=== PATIENT | female | born 1955 | race Caucasian/White ===

== ENCOUNTER → 2016-05-06 | Outpatient (CLI) | payer BC, OTHER ==
[~2016-05-06] MED LIST: ASCA500 PO; ASCO500T16 PO; CHOL400C6 PO; CHOLTAB3 PO; CLON0.1T12 PO; CLON0.3T PO; CLON1TAB PO; CLON1TAB3 PO; CYCL10TA6 PO; ERGO1TAB10; IBUP-1428 PO; KLN1 PO; LAMO150T32 PO; LAMO200T38 PO; LAMO25TA PO; LMC25 PO; MULT-506 PO; OMEG10007 PO; RMR15 PO
[2016-05-06 12:03] LABS: PROGESTERONE < 0.21 ng/mL
== END | disposition home or self-care (01) ==
LOC: C.LAB1850 10:03
DX: N95.1 Menopausal and female climacteric states (principal)

== ENCOUNTER → 2016-05-06 | Outpatient (CLI) | payer BC | END | disposition home or self-care (01) | LOC: C.PAPS 12:35 | PROVIDERS: ATTEND Obstetrics & Gynecology | DX: Z01.419 Encounter for gynecological examination (general) (routine) without abnormal findings (principal) ==

== ENCOUNTER 2016-06-12 20:05 | Emergency (ER) | payer BC ==
[~2016-06-12] VITALS: Ht 165.1 cm; Wt 65.9 kg
[~2016-06-12 20:05] MED LIST changes: -ASCO500T16 PO; -CHOL400C6 PO; -CLON0.1T12 PO; -CLON0.3T PO; -CLON1TAB PO; -CYCL10TA6 PO; -ERGO1TAB10; -KLN1 PO; -LAMO200T38 PO; -LMC25 PO; -RMR15 PO
[2016-06-12 20:19] VITALS: Ht 165.1 cm; Wt 65.9 kg
[2016-06-12] MEDS ORDERED: CYCLOBENZAPRINE HCL 10 MG TAB PO STA (21:45)
[2016-06-12] MEDS ORDERED: FLEXERIL HOME PACK 10 MG VIAL PO ONE (21:45)
[2016-06-12] MEDS ORDERED: CYCL10TA6 PO (22:50)
--- NOTE | 2016-06-12 22:50 | EMERGENCY ROOM VISIT NOTE ---
ED Visit Note First contact with patient: 21:35 Chief Complaint: Bad Muscle Spasms History of Present Illness: Patient is a 60-year-old female who presents to the emergency Department this evening for evaluation of her thoracic spine spasm. The patient reports that she started with symptoms afternoon. She has been seen in this facility for ongoing symptoms which appear to wax and wane in nature. She denies any falls or recent trauma to the spine. She has been placed on Flexeril previously with moderate relief of symptoms. She has not followed with her primary care provider for this to this point. The patient denies any numbness or tingling into the distal tremor is. She denies any loss of control bowel/bladder saddle anesthesia. She denies a chest pain, palpations , short of breath, nausea, vomiting, hematochezia, melena, hematuria, or dysuria. She rates her current discomfort as an 8/10. She reports the pain is worse with movement. Medications: Reviewed and discussed with the patient. Allergies: Multiple allergies listed above. PMH: As above. SHx: Patient is a 60-year-old female who lives locally. ROS: All pertinent positive and negative review of systems are appropriately documented in the History of Present Illness. Physical Exam: VITAL SIGNS - Vital signs and nursing notes were reviewed. GENERAL - 60-year-old female appearing her stated age and in noticeable discomfort throughout the exam. NECK - FROM of the cervical spine. ABDOMEN - Abdominal contour flat without pulsations or visible masses. BS normoactive all four quadrants. No tenderness, palpable masses, hepatosplenomegaly, or ascites noted. MUSCULOSKELETAL - ROM of the thoracolumbar spine region was assessed as full. Pt was seated on the exam table. Pt made semi-guarded movements when asked to change position. No step-off deformities were palpated down the thoracolumbar spines. Moderate Tenderness to Palpation experienced at the level of the bilateral lower thoracic paraspinal muscle distribution. No reproducible tenderness to palpation across the iliac spine. NEUROLOGIC - REFLEXES: +3/4 patellar reflexes B/L. SENSORY: Spinothalamic tract was found to be intact with ability to discriminate sharp versus dull sensation at the level of hip joint down do the great toe. No sensory defects of the dorsal column were appreciated utilizing light touch for evaluation. CEREBELLAR: Pt able to perform rapid alternating movements of the feet. EXTREMITIES - Range of Motion - No tremors, ticks, or fasciculations of the lower extremities noticed during inspection. FROM of the lower extremities. No clonus noted with PROM of the lower extremities bilaterally. Pt had +5/5 strength appreciated bilaterally in the lower extremities against examiner's resistance. VASCULAR - Capillary refill of the great toe was brisk. No mottling or blanching of the extremities present. +3/5 dorsalis pedis pulses palpated bilaterally. ED Course: Patient was seen and evaluated by myself. Previous emergency department visit notes were reviewed. I had a lengthy conversation with the patient regarding her ongoing symptoms. She was provided initial dose of Flexeril in the emergency department. She was encouraged to follow up with her primary care provider for ongoing management. She was educated on worrisome symptoms for return visit to the emergency department. Patient discharged home in good condition with a friend driving. In the evaluation and treatment of this patient the following differential diagnoses were considered: Cauda equina syndrome, discitis, HNP, sciatica, epidural abscess, psoas abscess, musculoskeletal strain, lumbar fracture, lumbar dislocation, lumbar subluxation, spondylolisthesis, spondylosis, or compression fracture. Given the patient's presentation and stated complaint, I did elect perform the above-mentioned workup. The patient presents today with active muscle spasm to the thoracic spinal muscle distribution. Vital signs are otherwise unremarkable. She has no significant findings concerning for compressive etiology at this point. She has responded well to Flexeril in the past. She was provided a short prescription for Flexeril. She'll follow-up with her primary care provider from today's visit. She will return for any changing or worsening symptoms. Patient discharged home in good condition. Impression: Thoracic Muscle Spasm Discharge Instructions: You have been treated in the Emergency Department for Back Pain. You have received pain medicine in the emergency department which impairs your ability to operate a vehicle. It is illegal for you to drive after receiving these medicines. You have been prescribed Flexeril (cyclobenzaprine) 1-2 tabs orally, three times per day. Do NOT exceed 30 mg (6 tabs) per day. Take your first dose at bedtime as it can make you drowsy. Always take all medications as prescribed. For pain control, you can use the following yqah-rog-yijjyqn medicines (if >12 yo): - Regular strength (325mg/tab) Tylenol (acetaminophen) 2 tabs every 4-6 hours as needed. Do not exceed 12 tablets in a 24 hour period. Avoid taking more than 4 grams (4000 mg) of Tylenol per day. This includes any other sources of acetaminophen you may take on a regular basis. - Regular strength (200 mg/tab) Advil (ibuprofen) 1-2 tabs every 4-6 hours as needed. Do not exceed a dose of 3200 mg per day. If this is an acute injury, ice can be applied to the area of pain for the first 3 days to help decrease pain and inflammation. After the first 3 days, a heating pad can be used over the area for continued soothing relief. You should schedule a follow-up appointment in 2-3 days with your Primary Care Provider for further evaluation and treatment of your back pain. Return to the Emergency Department if your current symptoms worsen despite treatment course outlined above, or if you develop any of the following symptoms : intractable pain despite aforementioned treatment course, loss of control of your bowel or bladder, numbness or tingling in your groin, or development of a fever. Problem List Medical Problems: (1) Anemia Nos Status: Chronic (2) Lipoma Nos Status: Resolved (3) Malig Nicholas Corpus Uteri Status: Resolved (4) Recurr Depr Disord-Unsp Status: Chronic (5) Solitary Cyst Of Breast Status: Resolved Current/Historical Medications Scheduled Ascorbic Acid (Vitamin C *), 500 MG PO DAILY Clonazepam (Klonopin), 1 MG PO 5XD Cyclobenzaprine Hcl (Flexeril), 10 MG PO TID Ergocalciferol (Vitamin D), 400 INTER.UNIT PO DAILY Fish Oil ([place]-3), 1 CAP PO BID Ibuprofen (Motrin), 800 MG PO Q8H Lamotrigine (Lamictal), 150 MG PO QAM Lamotrigine (Lamictal), 125 MG PO QPM Multivitamin (Multivitamin), 1 TAB PO DAILY Allergies Coded Allergies: Lanolin (Verified Allergy, Unknown, 06/12/16) Latex1 -Allergic Contact Dermititis (Unverified Allergy, Unknown, dry cracked skin, 06/12/16) Molds and Smuts (Unverified Allergy, Unknown, RASH, 06/12/16) Sulfa Drugs (Unverified Allergy, Unknown, swollen lips and tongue, 06/12/16 ) Sulfamethoxazole w/Trimethoprim (Verified Allergy, Unknown, ., 06/12/16) Amoxicillin (Unverified Adverse Reaction, Unknown, stomach can't tolerate , 06/12/16) Vital Signs Date Time Temp Pulse Resp B/P Pulse Ox O2 Delivery O2 Flow Rate FiO2 06/12/16 22:57 36.3 67 18 132/101 95 06/12/16 20:19 36.3 63 18 117/82 96 Room Air Medications Administered Medications (Trade) Dose Ordered Sig/Mary Route Start Time Stop Time Status Last Admin Dose Admin Cyclobenzaprine HCl (Flexeril Tab) 10 mg NOW STAT PO 06/12/16 21:45 06/12/16 21:46 DC 06/12/16 22:12 10 MG Departure Information Impression Primary Impression: Thoracic spine pain Additional Impression: Spasm of thoracolumbar muscle Dispostion Home / Self-Care Condition GOOD Prescriptions Cyclobenzaprine Hcl (FLEXERIL) 10 Mg Tab 10 MG PO TID for 7 Days, #21 TAB Prov: Chang Alvarez, TWIN 06/12/16 Referrals Grabiel Hennessy Jr,D.O. (PCP) Patient Instructions My [facility] Additional Instructions You have been treated in the Emergency Department for Back Pain. You have received pain medicine in the emergency department which impairs your ability to operate a vehicle. It is illegal for you to drive after receiving these medicines. You have been prescribed Flexeril (cyclobenzaprine) 1-2 tabs orally, three times per day. Do NOT exceed 30 mg (6 tabs) per day. Take your first dose at bedtime as it can make you drowsy. Always take all medications as prescribed. For pain control, you can use the following cjgw-ikg-mccycys medicines (if >12 yo): - Regular strength (325mg/tab) Tylenol (acetaminophen) 2 tabs every 4-6 hours as needed. Do not exceed 12 tablets in a 24 hour period. Avoid taking more than 4 grams (4000 mg) of Tylenol per day. This includes any other sources of acetaminophen you may take on a regular basis. - Regular strength (200 mg/tab) Advil (ibuprofen) 1-2 tabs every 4-6 hours as needed. Do not exceed a dose of 3200 mg per day. If this is an acute injury, ice can be applied to the area of pain for the first 3 days to help decrease pain and inflammation. After the first 3 days, a heating pad can be used over the area for continued soothing relief. You should schedule a follow-up appointment in 2-3 days with your Primary Care Provider for further evaluation and treatment of your back pain. Return to the Emergency Department if your current symptoms worsen despite treatment course outlined above, or if you develop any of the following symptoms : intractable pain despite aforementioned treatment course, loss of control of your bowel or bladder, numbness or tingling in your groin, or development of a fever. Problem Qualifiers
[2016-06-12 22:57] VITALS: BP 132/101; PULSE 67; TEMP 36.3; O2SAT 95
== END 2016-06-12 22:58 | disposition home or self-care (01) ==
LOC: C.EDB 20:06 → C.EDD 22:58
DX: M62.830 Muscle spasm of back (principal); F33.9 Major depressive disorder, recurrent, unspecified

== ENCOUNTER 2016-07-10 15:35 | Emergency (ER) | payer BC ==
[~2016-07-10] VITALS: Ht 165.1 cm; Wt 64.1 kg
[2016-07-10 15:38] VITALS: TEMP 36.3; Ht 165.1 cm; Wt 64.1 kg
[2016-07-10] MEDS ORDERED: CYCL10TA6 PO (16:24)
[2016-07-10] MEDS ORDERED: ASCO500T16 PO (16:28)
[2016-07-10] MEDS ORDERED: CHOL400C6 PO (16:31)
[2016-07-10] MEDS ORDERED: ERGO1TAB10 (16:31)
[2016-07-10 16:43] VITALS: BP 124/88; PULSE 63; O2SAT 97
--- NOTE | 2016-07-10 18:06 | EMERGENCY ROOM VISIT NOTE ---
ED Visit Note First contact with patient: 15:52 Chief Complaint: Back muscle spasms. History of Present Illness: Ms. Mota is a 60-year-old white female who ambulates into the ED complaining of left-sided thoracic back pain and muscle spasm. Historically patient reports she said multiple episodes of left-sided thoracic muscle spasms over the last few years. Currently she reports her pain is similar today and is slightly worse than normal but not the worst pain she's ever had. Currently she is complaining of cramping like pain over the medial border of the left scapula in the rhomboid and trapezius muscle. She rates her discomfort 9/10. The pain is nonradiating. Pain worsens with most movements of the shoulder and palpation. She has not identified any alleviating factors related to the pain. She reports she has been using ibuprofen with minimal relief of her discomfort. She denies any associated symptoms. Historically she does report she fell approximately 2 weeks ago while skiing and she feels this could be an aggravating factor. She denies fevers, chills, sweats, skin eruptions, skin color changes, upper respiratory tract symptoms, shortness of breath, chest pain, neck pain, lumbar back pain, abdominal pain, upper extremity weakness/numbness/tingling. Review of Systems: As noted above in history of present illness. 8 body systems were reviewed and found to be negative as noted above. Past Medical History: Status post hysterectomy, bicipital tendon repair. Current Medications: Motrin rectal, vitamins, Klonopin, Motrin. Allergies to Medications: Amoxicillin, lanolin, latex, Bactrim. Social History: Patient is currently employed; she feels safe in her home environment; she denies tobacco use and admits to social alcohol use. Physical Examination: Vital Signs: Date Time Temp Pulse Resp B/P Pulse Ox O2 Delivery O2 Flow Rate FiO2 07/10/16 15:38 36.3 76 22 134/86 96 Room Air GENERAL: 60-year-old female in mild distress due to pain, nontoxic-appearing, afebrile and hemodynamically stable. NEUROLOGICAL: Awake, alert and oriented to person, place and time. Answering questions appropriately and following commands. Normal gait. Good hand eye coordination. No focal motor sensory deficits. SKIN: Warm, dry and pink. No soft tissue eruptions or trauma noted. HEENT: Atraumatic and normocephalic. BACK: No tenderness over the bony cervical spine. Full range of motion of the cervical spine. No tenderness over the thoracic spine. Moderate tenderness and spasm of the trapezius and rhomboid group on the left side. No CVA tenderness. THORAX: Lungs sounds are clear to auscultation and equal bilaterally with symmetrical chest wall. UPPER EXTREMITIES: Moves all extremities well on command and with purpose. All distal neurovascular statuses are intact and equal bilaterally. 5/5 muscle strength in flexion, extension, abduction and abduction of the shoulders, flexion and extension of the elbows, flexion, extension and radial and ulnar deviation of the wrist, and finger opposition. Throughout the hand the skin was warm and pink and capillary refill was brisk. She is able to distinguish light sensations through all dermatomes except were the middle finger on the left handed previous surgery. 2+ bicipital, tricipital and brachial radialis deep tendon reflexes intact and equal bilaterally. Throughout the hand the skin was warm and pink and capillary refill is brisk. ED Course: Patient is assessed as noted above. Patient is educated about tonight's findings and instructed on her treatment plan; she verbalizes understanding and agreement with this plan. Clinical Impression: Thoracic muscle spasm and pain. Disposition: Patient discharged home in stable condition; prior to departure she was reassessed and subjectively reported she was feeling slightly better and rated her discomfort 7/10. Plan: Patient was encouraged to continue her current medications as prescribed. Patient was prescribed Flexeril 10 mg every 8 hours as needed for muscle spasm. A lengthy conversation on high: Therapies and patient was encouraged to follow that plan. Patient was encouraged to follow-up with her PCP and/or chiropractor for recheck and possible referral to back specialist. Patient was encouraged return ED for worsening/uncontrolled pain/spasm, upper extremity weakness/numbness/tingling or any new/concerning symptoms.
== END 2016-07-10 16:44 | disposition home or self-care (01) ==
LOC: C.EDB 15:37 → C.EDD 16:44
DX: M62.830 Muscle spasm of back (principal); Z90.710 Acquired absence of both cervix and uterus

== ENCOUNTER 2016-08-01 13:07 | Emergency (ER) | payer BC ==
[~2016-08-01] VITALS: Ht 165.1 cm; Wt 63.0 kg
[~2016-08-01 13:07] MED LIST changes: -ASCA500 PO; +ASCO500T16 PO; +CHOL400C6 PO; -CHOLTAB3 PO
[2016-08-01 13:25] VITALS: TEMP 36.6; Ht 165.1 cm; Wt 63.0 kg
[2016-08-01] MEDS ORDERED: KETOROLAC TROMETHAMINE 60 MG/2 ML VIAL IM STA (14:13)
[2016-08-01] MEDS ORDERED: CYCL10TA6 PO (14:17)
[2016-08-01 14:36] VITALS: BP 143/95; PULSE 63; O2SAT 97
--- NOTE | 2016-08-01 17:03 | EMERGENCY ROOM VISIT NOTE ---
History First contact with patient: 13:55 Chief Complaint: BACK PAIN Stated Complaint: MUSCLE SPASMS History of Present Illness The patient is a 60 year old female who presents to the Emergency Room with complaints of sided middle back pain radiating up underneath the left scapula. The patient reports that she has had intermittent back spasms for the past 6 months. Around [place] time, the patient reports that she did have 2 physical therapy sessions minimally helped. The patient reports that she is otherwise very active. She believes that her symptoms are caused by ergonomics in her office as she sits at a chair most of the day. The patient denies any pain radiating to the chest. She denies any shortness of breath. She has no pain in the lower back or neck. The best relief is when she is lying on an ice pack. She denies any other recent infections, fevers or chills. She rates her discomfort a 7 out of 10. She has used Flexeril in the past with good relief. She also has ibuprofen 800 mg tablets at home. Review of Systems 10 system review was performed and was negative except for pertinent positives and negatives as indicated in history of present illness Past Medical/Surgical History Medical Problems: (1) Anemia Nos (2) Lipoma Nos (3) Malig Nicholas Corpus Uteri (4) Recurr Depr Disord-Unsp (5) Solitary Cyst Of Breast Family History Patient reports no known family medical history. Social History Smoking Status: Never Smoker Alcohol Use: occasionally Marital Status: Housing Status: lives alone Occupation Status: employed Current/Historical Medications Scheduled Ascorbic Acid (Ascorbic Acid), 500 MG PO DAILY Cholecalciferol (D 400), 400 PO DAILY Clonazepam (Klonopin), 1 MG PO 5XD Cyclobenzaprine Hcl (Flexeril), 10 MG PO TID Fish Oil ([place]-3), 1 CAP PO BID Ibuprofen (Motrin), 800 MG PO Q8H Lamotrigine (Lamictal), 150 MG PO QAM Lamotrigine (Lamictal), 125 MG PO QPM Multivitamin (Multivitamin), 1 TAB PO DAILY Allergies Coded Allergies: Lanolin (Verified Allergy, Unknown, 07/10/16) Latex1 -Allergic Contact Dermititis (Unverified Allergy, Unknown, dry cracked skin, 07/10/16) Molds and Smuts (Unverified Allergy, Unknown, RASH, 07/10/16) Sulfa Drugs (Unverified Allergy, Unknown, swollen lips and tongue, 07/10/16 ) Sulfamethoxazole w/Trimethoprim (Verified Allergy, Unknown, ., 07/10/16) Amoxicillin (Unverified Adverse Reaction, Unknown, stomach can't tolerate , 07/10/16) Physical Exam Vital Signs Date Time Temp Pulse Resp B/P Pulse Ox O2 Delivery O2 Flow Rate FiO2 08/01/16 14:36 63 18 143/95 97 Room Air 08/01/16 13:25 36.6 81 20 141/88 95 Room Air Physical Exam CONSTITUTIONAL: Healthy and well nourished. Alert and oriented X 3 with positive affect. Patient appears in mild discomfort from pain. HEENT: Normocephalic, atraumatic. Pupils equal, round and reactive. NECK: Full active range of motion without discomfort. RESPIRATORY: Clear to auscultation bilaterally with no wheezing, crackles, rhonchi or stridor. Deep breathing does not worsen the patient's discomfort. CARDIOVASCULAR: Regular rate and rhythm with no murmurs, rubs or gallops. GASTROINTESTINAL: Bowel sounds present in all quadrants. Soft and nontender to palpation. MUSCULOSKELETAL: Examination shows tenderness to palpation through the left thoracic paraspinous muscle to the inferior scapular region. No palpable spasm noted. No focal tenderness to the central thoracic spine or right thoracic paraspinous muscle. INTEGUMENTARY: No rash or other significant dermatologic conditions noted. NEUROLOGIC: No focal neurologic deficits noted. Medical Decision & Procedures Medications Administered Medications (Trade) Dose Ordered Sig/Mary Route Start Time Stop Time Status Last Admin Dose Admin Ketorolac Tromethamine (Toradol Inj) 60 mg NOW STAT IM 08/01/16 14:13 08/01/16 14:14 DC 08/01/16 14:22 60 MG ED Course History and physical exam were performed. Nurse's notes were reviewed. Vital signs were reviewed and normal. The patient was administered Toradol 60 mg IM. I did offer for muscle relaxers, but the patient reports that Flexeril has worked well for her in the past. The patient was encouraged to alternate ibuprofen and Tylenol for baseline pain relief. She was provided a prescription for Flexeril 10 mg, dispensed #30 with no refills. No drinking alcohol or driving while taking Flexeril. She was instructed to follow-up with her PCP as needed for any persistent pain, returning to the emergency department for any other concerning symptoms. The patient was happy with plan of care, voice understanding of all discharge instructions, and rated her pain a 5 out of 10 at the time of discharge. Medical Decision Impression Primary Impression: Spasm of thoracic back muscle Departure Information Dispostion Home / Self-Care Prescriptions Cyclobenzaprine Hcl (FLEXERIL) 10 Mg Tab 10 MG PO TID for spasm, #30 TAB Prov: Julián Erickson PA 08/01/16 Forms HOME CARE DOCUMENTATION FORM, IMPORTANT VISIT INFORMATION Patient Instructions My [facility], ED Spasm Back No Trauma, Cyclobenzaprine Hydrochloride Oral tablet Additional Instructions Alternate ice and heat to back. Avoid heavy lifting or sitting for long periods of time. Ibuprofen 800 mg and/or Tylenol 1000 mg every 8 hours. You may also alternate these medications for more effective pain relief: Ibuprofen --4 HRS--> Tylenol --4 HRS--> ibuprofen --4 HRS--> Tylenol .... Take Flexeril as needed for muscle spasm. Do not drink alcohol or drive while taking Flexeril. Follow-up with your family doctor for further reevaluation and management. You may also try to call the [facility] to see if you need a referral for further reevaluation.
== END 2016-08-01 14:27 | disposition home or self-care (01) ==
LOC: C.EDB 13:09 → C.EDD 14:27
DX: M62.830 Muscle spasm of back (principal); F32.9 Major depressive disorder, single episode, unspecified; Z85.89 Personal history of malignant neoplasm of other organs and systems; D64.9 Anemia, unspecified; Z79.899 Other long term (current) drug therapy

== ENCOUNTER → 2016-08-19 | Outpatient (CLI) | payer BC ==
[2016-08-18 09:50] LABS: BLOOD UREA NITROGEN 11 mg/dl (7-18); CREATININE 0.89 mg/dl (0.60-1.20)
[~2016-08-19] MED LIST changes: +CLON0.1T12 PO; +CLON0.3T PO; +CLON1TAB PO; +CYCL10TA6 PO; +GADAVIST IV PRN; +KLN1 PO; +LAMO200T38 PO; +LMC25 PO; +RMR15 PO
--- NOTE | 2016-08-19 15:42 | DIAGNOSTIC IMAGING REPORT ---
THORACIC SPINE MRI WITH AND WITHOUT CONTRAST HISTORY: Pain THORACIC INTERCOSTAL NEURALGIA TECHNIQUE: Multiplanar multisequence MRI of the thoracic spine was performed both before and after the intravenous administration of contrast. COMPARISON: None. FINDINGS: Alignment and curvature are intact. No fracture or subluxation. No significant central canal or neural foraminal narrowing. Normal signal characteristics of all major components of the thoracic spine. No abnormal postcontrast enhancement IMPRESSION: Normal study Electronically signed by: Abram Nickerson M.D. 08/19/2016 3:40 PM Dictated Date/Time: 08/19/2016 3:39 PM
== END | disposition home or self-care (01) ==
LOC: C.MRI 14:06
DX: G58.0 Intercostal neuropathy (principal)

== ENCOUNTER 2016-08-29 17:23 | Emergency (ER) | payer BC ==
[~2016-08-29] VITALS: Ht 165.1 cm; Wt 60.6 kg
[~2016-08-29 17:23] MED LIST changes: -CLON0.1T12 PO; -CLON0.3T PO; -CLON1TAB PO; -CYCL10TA6 PO; -GADAVIST IV PRN; -KLN1 PO; -LAMO200T38 PO; -LMC25 PO; -RMR15 PO
[2016-08-29 17:34] VITALS: TEMP 36.4; Ht 165.1 cm; Wt 60.6 kg
--- NOTE | 2016-08-29 17:39 | EMERGENCY ROOM VISIT NOTE ---
History Report prepared by Thong: Dc Foster Under the Supervision of: Dr. Americo Frank D.O. First contact with patient: 17:37 Chief Complaint: CHEST PAIN Stated Complaint: CHEST PAIN,POSSIBLY FROM MEDS History of Present Illness The patient is a 60 year old female who presents to the Emergency Room with complaints of persistent chest discomfort that started 12 hours ago. The patient notes that she thinks she took too much Clonidine and describes the discomfort as feeling like her heart is beating too fast and is beating hard. The patient notes that she feels like some of her symptoms have resolved since her arrival at the ED. The patient notes that she is prescribed Clonidine to help her sleep. She was prescribed 2 mg when she started taking the medication. When she started taking the medication, she states it made her heart pound. The patient stopped taking the medication for a few days. However, she started the medication again and has been taking it 6 mg every day for the past week. She increased the dose on her own because she was trying to sleep. The patient notes that she has been under more stress lately and has been talking with her therapist once a month. the patient also complains of some dizziness. She notes that she does have a history of low blood pressure. She denies trouble breathing or shortness of breath, swelling or pain in her legs, cough, or any recent illnesses. Source of History: patient Onset: 12 hours ago Position: chest Quality: other (heart beating too fast and hard) Timing: other (persistent) Associated Symptoms: No SOB, No cough Note: Other associated symptoms: dizziness Denies: trouble breathing, swelling or pain in her legs, recent illness Review of Systems See HPI for pertinent positives & negatives. A total of 10 systems reviewed and were otherwise negative. 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 Social History Smoking Status: Never Smoker Alcohol Use: occasionally Marital Status: Housing Status: lives alone Occupation Status: employed Current/Historical Medications Scheduled Ascorbic Acid (Ascorbic Acid), 500 MG PO DAILY Cholecalciferol (D 400), 400 PO DAILY Clonazepam (Klonopin), 1 MG PO 5XD Fish Oil (Glouster-3), 1 CAP PO BID Ibuprofen (Motrin), 800 MG PO Q8H Lamotrigine (Lamictal), 0.5 TAB PO BID Lamotrigine (Lamotrigine), 25 MG PO DIRECTED Multivitamin (Multivitamin), 1 TAB PO DAILY Allergies Coded Allergies: Lanolin (Verified Allergy, Unknown, 08/29/16) Latex1 -Allergic Contact Dermititis (Unverified Allergy, Unknown, dry cracked skin, 08/29/16) Molds and Smuts (Unverified Allergy, Unknown, RASH, 08/29/16) Sulfa Drugs (Unverified Allergy, Unknown, swollen lips and tongue, 08/29/16 ) Sulfamethoxazole w/Trimethoprim (Verified Allergy, Unknown, ., 08/29/16) Amoxicillin (Unverified Adverse Reaction, Unknown, stomach can't tolerate , 08/29/16) Physical Exam Vital Signs Date Time Temp Pulse Resp B/P Pulse Ox O2 Delivery O2 Flow Rate FiO2 08/29/16 20:23 78 18 134/78 98 08/29/16 18:51 67 18 130/84 97 Room Air 08/29/16 18:27 98 Room Air 08/29/16 18:20 Room Air 08/29/16 18:00 66 08/29/16 17:34 36.4 73 18 133/90 98 Room Air Physical Exam GENERAL: Patient is awake alert somewhat anxious appearing, does not appear to be in pain. EYES: The conjunctivae are clear. The pupils are round and reactive. EARS, NOSE, MOUTH AND THROAT: The nose is without any evidence of any deformity. Mucous membranes are moist tongue is midline NECK: The neck is nontender and supple. RESPIRATORY: Normal respiratory effort is noted there is no evidence of wheezing rhonchi or rales CARDIOVASCULAR: Regular rate and rhythm noted there no murmurs rubs or gallops normal S1 normal S2 GASTROINTESTINAL: The abdomen is soft. Bowel sounds are present in all quadrants. Abdomen is nontender MUSCULOSKELETAL/EXTREMITIES: There is no evidence of gross deformity full range of motion is noted in the hips and shoulders SKIN: There is no obvious evidence of any rash. There are no petechiae, pallor or cyanosis noted. NEUROLOGIC: Patient is awake alert and oriented x3 strength is symmetric patellar reflexes are 2+ bilaterally PSYCH: Patient is very anxious and tearful appearing at times, affect is flat, currently denying any suicidal or homicidal ideation at this time. Medical Decision & Procedures ER Provider Diagnostic Interpretation: X-ray results as stated below per interpretation by me and the radiologist. CHEST ONE VIEW PORTABLE HISTORY: Atypical CHEST PAIN COMPARISON: Chest 12/20/2014. FINDINGS: The lungs are clear. Cardiac silhouette is normal in size. No pleural effusions. No pneumothorax. IMPRESSION: No acute process. Electronically signed by: Tomer Cantu M.D. 08/29/2016 6:49 PM Dictated Date/Time: 08/29/2016 6:48 PM Laboratory Results 08/29/16 18:00 Red Blood Count 4.26, Mean Corpuscular Volume 88.7, Mean Corpuscular Hemoglobin 31.0, Mean Corpuscular Hemoglobin Concent 34.9, Mean Platelet Volume 8.9, Neutrophils (%) (Auto) 37.0, Lymphocytes (%) (Auto) 46.0, Monocytes (%) (Auto) 10.8, Eosinophils (%) (Auto) 5.3, Basophils (%) (Auto) 0.7, Neutrophils # (Auto ) 1.67, Lymphocytes # (Auto) 2.08, Monocytes # (Auto) 0.49, Eosinophils # (Auto ) 0.24, Basophils # (Auto) 0.03 08/29/16 18:00 Test 08/29/16 18:00 White Blood Count 4.52 K/uL (4.8-10.8) Red Blood Count 4.26 M/uL (4.2-5.4) Hemoglobin 13.2 g/dL (12.0-16.0) Hematocrit 37.8 % (37-47) Mean Corpuscular Volume 88.7 fL (80-100) Mean Corpuscular Hemoglobin 31.0 pg (25-34) Mean Corpuscular Hemoglobin Concent 34.9 g/dl (32-36) Platelet Count 363 K/uL (130-400) Mean Platelet Volume 8.9 fL (7.4-10.4) Neutrophils (%) (Auto) 37.0 % Lymphocytes (%) (Auto) 46.0 % Monocytes (%) (Auto) 10.8 % Eosinophils (%) (Auto) 5.3 % Basophils (%) (Auto) 0.7 % Neutrophils # (Auto) 1.67 K/uL (1.4-6.5) Lymphocytes # (Auto) 2.08 K/uL (1.2-3.4) Monocytes # (Auto) 0.49 K/uL (0.11-0.59) Eosinophils # (Auto) 0.24 K/uL (0-0.5) Basophils # (Auto) 0.03 K/uL (0-0.2) RDW Standard Deviation 39.6 fL (36.4-46.3) RDW Coefficient of Variation 12.4 % (11.5-14.5) Immature Granulocyte % (Auto) 0.2 % Immature Granulocyte # (Auto) 0.01 K/uL (0.00-0.02) Prothrombin Time 11.8 SECONDS (9.0-12.0) Prothromb Time International Ratio 1.1 (0.9-1.1) Activated Partial Thromboplast Time 29.4 SECONDS (21.0-31.0) Partial Thromboplastin Ratio 1.1 Anion Gap 9.0 mmol/L (3-11) Est Creatinine Clear Calc Drug Dose 60.5 ml/min Estimated GFR () 81.6 Estimated GFR (Non- 70.4 BUN/Creatinine Ratio 8.6 (10-20) Calcium Level 8.8 mg/dl (8.5-10.1) Total Bilirubin 0.5 mg/dl (0.2-1) Direct Bilirubin 0.1 mg/dl (0-0.2) Aspartate Amino Transf (AST/SGOT) 20 U/L (15-37) Alanine Aminotransferase (ALT/SGPT) 26 U/L (12-78) Alkaline Phosphatase 59 U/L (45-117) Total Creatine Kinase 123 U/L (26-192) Creatine Kinase MB 0.7 ng/ml (0.5-3.6) Creatine Kinase MB Ratio 0.6 (0-3.0) Troponin I < 0.015 ng/ml (0-0.045) Total Protein 7.7 gm/dl (6.4-8.2) Albumin 4.4 gm/dl (3.4-5.0) Lipase 143 U/L (73-393) Laboratory results per my review. Medications Administered Medications (Trade) Dose Ordered Sig/Mary Route Start Time Stop Time Status Last Admin Dose Admin Sodium Chloride (Nss 1000ml) 1,000 ml @ 999 mls/hr Q1H1M STAT IV 08/29/16 17:44 08/29/16 18:44 DC 08/29/16 17:44 999 MLS/HR Lorazepam (Ativan Inj) 0.5 mg NOW STAT IV 08/29/16 17:44 08/29/16 17:46 DC 08/29/16 18:17 0.5 MG ECG Indication: chest pain Rate (beats per minute): 63 Rhythm: normal sinus Findings: no ectopy, other (no acute ST segment abnormality) Change: no significant change (when compared to June 03, 2015) ED Course 1737: The patient was evaluated in room C6. A complete history and physical examination were performed. 1743: Ordered Ativan Inj 0.5 mg IV, NSS 1000 ml @ 999 mls/hr IV. 1911: At this time, I reevaluated the patient and discussed the findings with her. She is feeling better. 1936: Upon reevaluation, the patient is resting comfortably. I discussed the results and treatment plan with her. She verbalized agreement of the treatment plan. The patient was discharged home. Medical Decision Differential diagnosis: Etiologies such as cardiac ischemia, aortic dissection, pulmonary embolism, pneumonia, pneumothorax, musculoskeletal, infections, pericarditis, myocarditis , esophageal rupture, gastrointestinal, as well as others were entertained. Nursing notes reviewed. The patient is a 60-year-old female who presented to emergency department for an evaluation of ongoing chest discomfort which began last evening. The patient states that she has significant anxiety and has been taking her clonidine. She states that this normally helps with her insomnia. The patient was found have the wrong pills in the pill bottles by the quality assurance/r&d lab technician. The patient's medications were reviewed I the emergency Department vp legal affairs. At this time it would appear the patient has been taking her medications inappropriately. The patient was not found have any acute changes on her EKG. I discussed the patient's laboratory and radiographic studies with her. She was encouraged to continue all medications only as prescribed and call her family doctor to schedule follow-up. Otherwise she was encouraged to return to the emergency department immediately if symptoms change worsen or the need arises. I offered to have the patient evaluated by the emergency Department mental health case sealer but the patient did not wish to talk with them at this time. She does not appear to have criteria for inpatient admission or involuntary admission at this time. Impression Primary Impression: Precordial chest pain Additional Impressions: Noncompliance with medications Hyponatremia Scribe Attestation The scribe's documentation has been prepared under my direction and personally reviewed by me in its entirety. I confirm that the note above accurately reflects all work, treatment, procedures, and medical decision making performed by me. Departure Information Dispostion Home / Self-Care Referrals Grabiel Hennessy Jr,D.O. (PCP) Forms HOME CARE DOCUMENTATION FORM, IMPORTANT VISIT INFORMATION Patient Instructions My [facility] Additional Instructions Continue all medications only as prescribed. Call your family as well as her therapist tomorrow to schedule follow-up appointment. Return to the emergency department immediately if symptoms change worsen or the need arises. Problem Qualifiers
[2016-08-29] MEDS ORDERED: LORAZEPAM 2 MG/ML 1 ML VIAL IV STA (17:44)
[2016-08-29] MEDS ORDERED: SODIUM CHLORIDE 0.9% 1000ML 1,000 ML IV STA (17:44)
[2016-08-29 18:09] LABS: BASO % 0.7 %; BASO ABS # 0.03 K/uL (0-0.2); COMPLETE YES; EOS % 5.3 %; HEMATOCRIT 37.8 % (37-47); IG% 0.2 %; LYMPH ABS # 2.08 K/uL (1.2-3.4); MEAN CELL VOLUME 88.7 fL (80-100); MEAN CORPUSCULAR HGB CONC 34.9 g/dl (32-36); MEAN PLATELET VOLUME 8.9 fL (7.4-10.4); MONO % 10.8 %; PLATELET COUNT 363 K/uL (130-400); RED BLOOD COUNT 4.26 M/uL (4.2-5.4); WHITE BLOOD COUNT 4.52 K/uL (4.8-10.8)
[2016-08-29] MEDS ORDERED: LMC25 PO (18:17)
[2016-08-29] MEDS ORDERED: LAMO200T38 PO (18:17)
[2016-08-29 18:22] LABS: INR 1.1 (0.9-1.1); PARTIAL THROMBOPLASTIN RATIO 1.1; PROTHROMBIN TIME (PATIENT) 11.8 SECONDS (9.0-12.0)
[2016-08-29 18:35] LABS: ALT/SGPT 26 U/L (12-78); AST/SGOT 20 U/L (15-37); BLOOD UREA NITROGEN 8 mg/dl (7-18); BUN/CREATININE RATIO 8.6 (10-20); CALCIUM 8.8 mg/dl (8.5-10.1); CARBON DIOXIDE 24 mmol/L (21-32); CHLORIDE 97 mmol/L (98-107); CREATININE 0.89 mg/dl (0.60-1.20); GLUCOSE 90 mg/dl (70-99); POTASSIUM 3.6 mmol/L (3.5-5.1); SODIUM 130 mmol/L (136-145)
[2016-08-29 18:41] LABS: ALKALINE PHOSPHATASE 59 U/L (45-117); CKMB/CK RATIO 0.6 (0-3.0)
--- NOTE | 2016-08-29 18:50 | DIAGNOSTIC IMAGING REPORT ---
CHEST ONE VIEW PORTABLE HISTORY: Atypical CHEST PAIN COMPARISON: Chest 12/20/2014. FINDINGS: The lungs are clear. Cardiac silhouette is normal in size. No pleural effusions. No pneumothorax. IMPRESSION: No acute process. Electronically signed by: Tomer Cantu M.D. 08/29/2016 6:49 PM Dictated Date/Time: 08/29/2016 6:48 PM
--- NOTE | 2016-08-29 19:43 | Pharmacy Progress Note ---
ED Pharmacist Progress Note Date of Service: August 29, 2016. * field artillery targeting technician (Shanda) noticed that patient's outpatient bottle of lamotrigine 25 mg had a significant amount of clonidine 0.1 mg. Shanda brought me both bottles. * Both tablets look extraordinarily similar (white, round, scored on one side, same size). * I looked at every tablet in each bottle and them into the proper bottles. I then took a 2nd look at every tablet to ensure that the correct tablets were in the correct bottle. * It is unlikely that this mistake occurred at the outpatient pharmacy. Usually , if the outpatient pharmacy is at fault, 100% of the tablets in the bottle will be incorrect or there will be tablets that the patient has not been prescribed mixed in. * I spoke with the patient and informed of the mixed tablets. The patient is not sure how this happened, but notes that she sometimes keeps clonidine in a clear bottle at work. I anticipate that the patient accidentally put some of these tablets back into the wrong bottle. * I spoke w Dr. Frank who is aware of this mix-up and the potential for a drug- related component to her symptoms
[2016-08-29 20:23] VITALS: BP 134/78; PULSE 78; O2SAT 98
== END 2016-08-29 20:25 | disposition home or self-care (01) ==
LOC: C.EDB 17:24 → C.EDA 20:25
DX: R07.2 Precordial pain (principal); E87.1 Hypo-osmolality and hyponatremia; Z91.19 Patient's noncompliance with other medical treatment and regimen; F32.9 Major depressive disorder, single episode, unspecified; Z90.710 Acquired absence of both cervix and uterus; Z79.899 Other long term (current) drug therapy; F41.9 Anxiety disorder, unspecified; G47.00 Insomnia, unspecified

== ENCOUNTER 2016-10-20 13:48 | Inpatient (IN) | payer BC, OTHER ==
[~2016-10-20] VITALS: Ht 165.1 cm; Wt 57.8 kg
[~2016-10-20 13:48] MED LIST changes: -LAMO150T32 PO; +LAMO200T38 PO; -LAMO25TA PO; +LMC25 PO
[2016-10-20] MEDS ORDERED: SODIUM CHLORIDE 0.9% 500ML 500 ML IV STA (15:00)
[2016-10-20] MEDS ORDERED: SODIUM CHLORIDE 0.9% 1000ML 1,000 ML IV STA (15:00)
[2016-10-20 15:29] LABS: URINE APPEARANCE CLEAR (CLEAR); URINE BILIRUBIN NEG (NEG); URINE COLOR YELLOW; URINE NITRITE NEG (NEG); UROBILINOGEN NEG (NEG); ZZUR CULT IF INDIC CLEAN CATCH NO
[2016-10-20 15:36] LABS: MANUAL MICROSCOPIC REQUIRED? NO; REVIEW REQ? NO
--- NOTE | 2016-10-20 15:36 | EMERGENCY ROOM VISIT NOTE ---
History Report prepared by Thong: Wilfrido Schmitt Under the Supervision of: Dr. Angeli Orozco M.D. First contact with patient: 15:00 Chief Complaint: OVERDOSE (INTENTIONAL) Stated Complaint: TOO MANY SYMPTOMS History of Present Illness The patient is a 61 year old female who presents to the Emergency Room with complaints of a possible overdose occurring prior to arrival. She reports that she has been having trouble sleeping since she was a child. The patient states that she has been prompted to get medicated with Lamictal to help her sleep since she does not feel well and needs to go to work. The patient states that she typically takes 150 mg of Lamictal in the afternoon and 125 mg at night. She reports that it has not helped her sleep so she took 600-800 mg of her medication 6 times this week. The patient states that she has been experiencing tremors in her head, confusion, and nausea. She reports that she was unable to ambulate and states that she fell down twice. The patient states that she was recently put on clonidine with her Lamictal to help her sleep. She admits that she has been seen in the ED for the same problem previously. The patient denies any suicidal ideations, wanting to hurt others, diarrhea, hallucinations, urinary symptoms, and previous mental health hospitalizations. Source of History: patient Onset: prior to arrival Position: other (global) Timing: constant Modifying Factors (Worsening): other (Lamictal) Associated Symptoms: + headache, + nausea, No diarrhea, No urinary symptoms Review of Systems See HPI for pertinent positives & negatives. A total of 10 systems reviewed and were otherwise negative. Past Medical & Surgical Medical Problems: (1) Anemia Nos (2) Generalized anxiety disorder (3) Lipoma Nos (4) Malig Nicholas Corpus Uteri (5) Recurr Depr Disord-Unsp (6) Solitary Cyst Of Breast (7) Uterine cancer Surgical Problems: (1) History of hysterectomy for cancer Family History Patient reports no known family medical history. Social History Smoking Status: Former Smoker Alcohol Use: occasionally Marital Status: Housing Status: lives alone Occupation Status: employed Current/Historical Medications Scheduled Cholecalciferol (D 400), 400 PO DAILY Clonazepam (Klonopin), 1.5 MG PO HS Lamotrigine (Lamictal), 100 MG PO BID Lamotrigine (Lamictal), 25 MG PO QAM Lamotrigine (Lamictal), 50 MG PO HS Multivitamin (Multivitamin), 1 TAB PO DAILY Scheduled PRN Clonazepam (Klonopin), 0.5 MG PO Q4H PRN for Anxiety Clonidine Hcl (Catapres), 0.1-0.2 MG PO HS PRN for Insomnia Allergies Coded Allergies: Lanolin (Verified Allergy, Unknown, 08/29/16) Latex1 -Allergic Contact Dermititis (Unverified Allergy, Unknown, dry cracked skin, 08/29/16) Molds and Smuts (Unverified Allergy, Unknown, RASH, 08/29/16) Sulfa Drugs (Unverified Allergy, Unknown, swollen lips and tongue, 08/29/16 ) Sulfamethoxazole w/Trimethoprim (Verified Allergy, Unknown, ., 08/29/16) Amoxicillin (Unverified Adverse Reaction, Unknown, stomach can't tolerate , 08/29/16) Physical Exam Vital Signs Date Time Temp Pulse Resp B/P (MAP) Pulse Ox O2 Delivery O2 Flow Rate FiO2 10/20/16 18:00 68 20 164/95 97 Room Air 10/20/16 16:07 66 10/20/16 16:04 97 Room Air 10/20/16 16:00 65 20 170/97 96 Room Air 10/20/16 14:02 37.2 82 20 169/109 97 Room Air Physical Exam Vital signs reviewed. General: Well-appearing 61 year old female, in no significant distress. HEENT: No scleral icterus, PERRLA, neck supple. Atraumatic. Cardiovascular: Regular rate and rhythm, no extra sounds. Pulmonary: Clear to auscultation bilaterally, normal work of breathing. Abdomen: Soft, nontender, nondistended, positive bowel sounds. Musculoskeletal: Subtle muscle twitching. Atraumatic, no peripheral edema. Neurologic: Patient awake alert and oriented x 3, full strength in all 4 extremities. Cranial nerves 2 through 12 grossly intact. Skin: Warm, dry, no rash Psych: Denies suicidal and homicidal ideation. Medical Decision & Procedures Laboratory Results 10/20/16 15:35 Red Blood Count 3.89, Mean Corpuscular Volume 89.2, Mean Corpuscular Hemoglobin 31.1, Mean Corpuscular Hemoglobin Concent 34.9, Mean Platelet Volume 9.6, Neutrophils (%) (Auto) 51.7, Lymphocytes (%) (Auto) 33.0, Monocytes (%) (Auto) 11.6, Eosinophils (%) (Auto) 3.2, Basophils (%) (Auto) 0.3, Neutrophils # (Auto ) 3.07, Lymphocytes # (Auto) 1.96, Monocytes # (Auto) 0.69, Eosinophils # (Auto ) 0.19, Basophils # (Auto) 0.02 10/20/16 15:35 Test 10/20/16 14:25 10/20/16 15:35 Urine Color YELLOW Urine Appearance CLEAR (CLEAR) Urine pH 6.0 (4.5-7.5) Urine Specific Stephan 1.010 (1.000-1.030) Urine Protein NEG (NEG) Urine Glucose (UA) NEG (NEG) Urine Ketones NEG (NEG) Urine Occult Blood NEG (NEG) Urine Nitrite NEG (NEG) Urine Bilirubin NEG (NEG) Urine Urobilinogen NEG (NEG) Urine Leukocyte Esterase NEG (NEG) Urine Opiates Screen NEG (NEG) Urine Methadone, Qualitative NEG (NEG) Urine Barbiturates NEG (NEG) Urine Phencyclidine (PCP) Level NEG (NEG) Ur Amphetamine/Methamphetamine NEG (NEG) MDMA (Ecstasy) Screen NEG (NEG) Urine Benzodiazepines Screen NEG (NEG) Urine Cocaine Metabolite NEG (NEG) Urine Marijuana (THC) NEG (NEG) White Blood Count 5.94 K/uL (4.8-10.8) Red Blood Count 3.89 M/uL (4.2-5.4) Hemoglobin 12.1 g/dL (12.0-16.0) Hematocrit 34.7 % (37-47) Mean Corpuscular Volume 89.2 fL (80-100) Mean Corpuscular Hemoglobin 31.1 pg (25-34) Mean Corpuscular Hemoglobin Concent 34.9 g/dl (32-36) Platelet Count 322 K/uL (130-400) Mean Platelet Volume 9.6 fL (7.4-10.4) Neutrophils (%) (Auto) 51.7 % Lymphocytes (%) (Auto) 33.0 % Monocytes (%) (Auto) 11.6 % Eosinophils (%) (Auto) 3.2 % Basophils (%) (Auto) 0.3 % Neutrophils # (Auto) 3.07 K/uL (1.4-6.5) Lymphocytes # (Auto) 1.96 K/uL (1.2-3.4) Monocytes # (Auto) 0.69 K/uL (0.11-0.59) Eosinophils # (Auto) 0.19 K/uL (0-0.5) Basophils # (Auto) 0.02 K/uL (0-0.2) RDW Standard Deviation 41.5 fL (36.4-46.3) RDW Coefficient of Variation 12.7 % (11.5-14.5) Immature Granulocyte % (Auto) 0.2 % Immature Granulocyte # (Auto) 0.01 K/uL (0.00-0.02) Anion Gap 9.0 mmol/L (3-11) Est Creatinine Clear Calc Drug Dose 55.4 ml/min Estimated GFR () 74.0 Estimated GFR (Non- 63.8 BUN/Creatinine Ratio 6.6 (10-20) Calcium Level 8.9 mg/dl (8.5-10.1) Magnesium Level 2.1 mg/dl (1.8-2.4) Total Bilirubin 0.4 mg/dl (0.2-1) Direct Bilirubin < 0.1 mg/dl (0-0.2) Aspartate Amino Transf (AST/SGOT) 20 U/L (15-37) Alanine Aminotransferase (ALT/SGPT) 24 U/L (12-78) Alkaline Phosphatase 61 U/L (45-117) Total Protein 7.2 gm/dl (6.4-8.2) Albumin 4.3 gm/dl (3.4-5.0) Thyroid Stimulating Hormone (TSH) 1.870 uIu/ml (0.300-4.500) Salicylates Level < 1.7 mg/dl (2.8-20) Acetaminophen Level < 2 ug/ml (10-30) Ethyl Alcohol mg/dL < 3.0 mg/dl (0-3) Laboratory results per my review. Medications Administered Medications (Trade) Dose Ordered Sig/Mary Route Start Time Stop Time Status Last Admin Dose Admin Sodium Chloride 1,000 ml @ 150 mls/hr Q6H40M STAT IV 10/20/16 15:00 10/20/16 20:43 DC 10/20/16 16:19 150 MLS/HR Sodium Chloride 500 ml @ 999 mls/hr Q31M STAT IV 10/20/16 15:00 10/20/16 15:30 DC 10/20/16 16:19 999 MLS/HR Clonazepam (Klonopin Tab) 0.5 mg NOW STAT PO 10/20/16 18:26 10/20/16 18:28 DC 10/20/16 18:38 0.5 MG ECG Indication: other (overdose) Rate (beats per minute): 69 Rhythm: normal sinus Findings: Q waves (Anterior with T wave flattening), no ectopy, other (Low voltage) ED Course 1500: Sodium Chloride 500 ml @ 999 mls/hr IV, Sodium Chloride 1000 ml @ 150 mls/ hr IV. 1511: Past medical records reviewed. The patient was evaluated in room A08. A complete history and physical examination was performed. 1642: I discussed the patient's case with the psych nurse. She told me that Dr. Thompson contacted the patient multiple times and the patient and Dr. Quezada have been in contact as well. Elizabeth, the nurse liaison, is going to come and evaluate the patient. 1753: I discussed the patient's case with [facility]. They understand the patient's condition and agree to accept the patient. 1826: Klonopin Tab 0.5 mg PO. Medical Decision The differential diagnosis includes but is not limited to: etiologies such as metabolic, infection, hypoglycemia, electrolyte abnormalities, cardiac sources, intracerebral event, toxicologic, neurologic, as well as others were entertained. Medication Reconciliation: I attest that I have personally reviewed the patient' s current medication list. This pt was evaluated and appeared to be in no distress. Pt was medically cleared and evaluated by mental health. I was contacted by her psychiatrist, Dr Thompson, who has recommended inpt treatment. He does not feel she is safe to be at home alone. According to the pt, she is not suicidal. She does admit to medication misuse. Nursing staff states the pt was contacted many times by both he psychiatrist and PCP. She initially stated Dr Hennessy was "covering" for her PCP Dr Jeong, who is out on maternity leave, and was just calling in her Rx. Later she admitted to being Dr Hennessy's pt for many years, but is switching to Dr Jeong's care. It is unclear why this would be something to hide. Pt inconsistencies are concerning. Pt was accepted to unit for further management. Consults Time Called: 1752 Consulting Physician: [facility] Returned Call: [phone] I discussed the patient's case with [facility]. They understand the patient's condition and agree to accept the patient. Impression Primary Impression: Drug abuse Additional Impression: Mood disorder Scribe Attestation The scribe's documentation has been prepared under my direction and personally reviewed by me in its entirety. I confirm that the note above accurately reflects all work, treatment, procedures, and medical decision making performed by me. Departure Information Dispostion Rehab Inpatient Facility Referrals No Doctor, Assigned (PCP) Patient Instructions My [facility] Problem Qualifiers
[2016-10-20 15:55] LABS: BASO % 0.3 %; BASO ABS # 0.02 K/uL (0-0.2); COMPLETE YES; EOS % 3.2 %; HEMATOCRIT 34.7 % (37-47); IG% 0.2 %; LYMPH ABS # 1.96 K/uL (1.2-3.4); MEAN CELL VOLUME 89.2 fL (80-100); MEAN CORPUSCULAR HEMOGLOBIN 31.1 pg (25-34); MEAN CORPUSCULAR HGB CONC 34.9 g/dl (32-36); MEAN PLATELET VOLUME 9.6 fL (7.4-10.4); MONO % 11.6 %; NEUT % 51.7 %; PLATELET COUNT 322 K/uL (130-400); RED BLOOD COUNT 3.89 M/uL (4.2-5.4); WHITE BLOOD COUNT 5.94 K/uL (4.8-10.8)
[2016-10-20 15:58] LABS: BENZODIAZEPINE, URINE NEG (NEG); COCAINE,URINE NEG (NEG); PHENCYCLIDINE, URINE NEG (NEG)
[2016-10-20 16:04] VITALS: O2SAT 97
[2016-10-20 16:15] LABS: ALT/SGPT 24 U/L (12-78); BLOOD UREA NITROGEN 6 mg/dl (7-18); BUN/CREATININE RATIO 6.6 (10-20); CALCIUM 8.9 mg/dl (8.5-10.1); CARBON DIOXIDE 25 mmol/L (21-32); CHLORIDE 97 mmol/L (98-107); CREATININE 0.96 mg/dl (0.60-1.20); GLUCOSE 94 mg/dl (70-99); MAGNESIUM 2.1 mg/dl (1.8-2.4); POTASSIUM 4.3 mmol/L (3.5-5.1); SODIUM 131 mmol/L (136-145)
[2016-10-20 16:18] LABS: ACETAMINOPHEN < 2 ug/ml (10-30)
[2016-10-20] MEDS ORDERED: CLON0.1T12 PO (16:24)
[2016-10-20 16:26] LABS: ALKALINE PHOSPHATASE 61 U/L (45-117); AST/SGOT 20 U/L (15-37)
[2016-10-20] MEDS ORDERED: CLON1TAB3 PO (16:27)
[2016-10-20] MEDS ORDERED: LAMO25TA PO ×2 (16:29→16:33)
[2016-10-20] MEDS ORDERED: CLONAZEPAM 0.5 MG TAB PO STA (18:26)
[2016-10-20] MEDS ORDERED: NURSING VERBAL MED ORDER SCH (19:00)
[2016-10-20 19:19] VITALS: O2SAT 100
[2016-10-20] MEDS ORDERED: MAGNESIUM HYDROXIDE SUSP 30 ML UDC PO PRN (19:45)
[2016-10-20] MEDS ORDERED: ACETAMINOPHEN 325 MG TAB PO PRN (19:45)
[2016-10-20] MEDS ORDERED: ALUMINUM/MAGNESIUM SUSP 30 ML UDC PO PRN (19:45)
[2016-10-20] MEDS ORDERED: SODIUM CHLORIDE 0.65% NA SOLN 45 ML (OCEAN) PRN (19:45)
[2016-10-20] MEDS ORDERED: hydrOXYzine HCL 25 MG TAB PO PRN (19:45)
[2016-10-20] MEDS ORDERED: BISMUTH SUBSALICYLATE PER ML OMNICELL CHARGE PO PRN (19:45)
[2016-10-20] MEDS ORDERED: CLONAZEPAM 0.5 MG TAB PO PRN (20:15)
[2016-10-20 21:29] VITALS: BP 165/93; PULSE 66; TEMP 36.8; Ht 165.1 cm; Wt 57.8 kg
[2016-10-20] MEDS ORDERED: CLONAZEPAM 0.5 MG TAB PO SCH (22:00)
[2016-10-21] VITALS (7 sets, daily range): BP systolic 102–169; BP diastolic 67–104; PULSE 62–89; TEMP 36.3–37.1
[2016-10-21] MEDS: hydrOXYzine HCL 25 MG TAB PO PRN ×2 (00:05→00:37)
[2016-10-21] MEDS: MULTIVITAMIN TAB PO SCH (08:18)
[2016-10-21] MEDS ORDERED: LORAZEPAM 1 MG TAB PO PRN ×2 (11:45→12:30)
[2016-10-21] MEDS: CLONAZEPAM 1 MG TAB PO SCH ×3 (12:35→22:06)
[2016-10-21] MEDS ORDERED: CLONIDINE HCL 0.1 MG TAB PO ONE (13:00)
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
[2016-10-21] MEDS: CLONIDINE HCL 0.3 MG TAB PO SCH (22:02)
[2016-10-21] MEDS: MIRTAZAPINE TAB 15 MG TAB PO PRN (22:24)
[2016-10-22 06:47] VITALS: BP_SYST 97; BP_SYST 99; BP_DIAS 65; BP_DIAS 72; PULSE 56; PULSE 69; TEMP 36.8
[2016-10-22] MEDS: MULTIVITAMIN TAB PO SCH (08:13)
[2016-10-22] MEDS: CLONAZEPAM 1 MG TAB PO SCH ×4 (08:13→21:13)
--- NOTE | 2016-10-22 09:46 | Psychiatric Progress Notes ---
Progress Note Date of Service Oct 22, 2016. Interval History Delores Boudreaux is a 61-year-old female who currently lives in [place], [place] alone , has a history of depression and anxiety, and was admitted on a 201 voluntary commitment after she presented to the ER s/p overdose on Lamictal, Klonopin and clonidine. Chief Complaint "Okay". Subjective Patient was seen & assessed interval progress reviewed with Treatment Team. Staff report she attended some groups and refused others, has flat affect, and is irritable. She was angry that her clonazepam dose was lower that what she usually takes at home (although it is ordered here as prescribed at home, and she was taking a higher dose on her own). She told staff she was confused about her medications, so was provided with a list of her medicines. She was social with peers. On assessment today, she states that she sees Dr. Thompson once a month for therapy and medications. She that she has been on clonazepam for 20 years, and gets it from Dr. Hennessy. She says she taking 1mg 5 times daily rather than 0.5mg qid and 1.5mg qhs, and says that Dr. Hennessy told her she could take the higher dose of 1mg qid and 1.5mg qhs, so has been taking a total of 6.5mg daily. Reviewed dosing guidelines for treatment of anxiety and that this is a high dose. She initially says she decided not to see Dr. Hennessy anymore, then says he won't see her, and she needs someone to prescribe her meds as she doesn't have an appointment with her new PCP Dr. Jeong until mid -November. She says her psychiatrist has also said he will not prescribe the clonazepam. She requested that Drs. Hennessy and Donna be involved as they could explain why she was taking higher doses of Klonopin that what is started on the prescription. She reports improved mood here which she attributes to "getting my meds right again," although sleep remains impaired. Denies SI, HI and psychosis. Spoke with Dr. Hennessy, who states she terminated care, and did not say why. He has been seeing her for 20 years and she has been on prison benzos, which were originally prescribed by Dr. Thompson. She has been on 4-5mg of clonazepam daily for many years (at least 10 years). He did not know of her history of overusing or overdosing on medications (but per our records, she was admitted medically after a clonazepam OD in 2000, and her reported she'd overdosed on clonazepam multiple times in the past but had not sought treatment) . Spoke with Dr. Thompson, who states he has seen her for therapy for years, but her PCP prescribes all medications. He initially did prescribe medications to her in the past, but she was poorly compliant, took more than was prescribed, and was abusing them, so he ultimately declined to further prescribe. She has been on lamotrigine and clonazepam for many years. She has been in therapy with him for about 15 years, since her . She has borderline traits if not BPD, with mood lability, rage, relationship problems, mood reactivity. Mother was an alcoholic, and she is estranged from her sisters. She called him Thursday and told him she was "addicted to lamotrigine," and her speech was slurred. He recommended she come to the hospital. She then called him from the ER complaining about the ER doctor, saying "they don't get this, they don't understand this medication." He spoke to Dr. Orozco in the ER and relayed his recommendations for inpatient treatment. He had tried her on bupropion, Luvox, quetiapine, and fluoxetine, but she did not tolerate any of them and stopped them after brief trials. He is not comfortable prescribing medications for her given her history, and recommends inpatient detox to come off the benzodiazepines. Sleep Information Total Hours of Sleep: 6.00 Meal Information Percent of Breakfast Consumed: 100 Percent of Lunch Consumed: 100 Percent of Dinner Consumed: 100 Mental Status Exam During interview pt is: alert and oriented, cooperative, guarded Appearance: appropriately dressed, appropriately groomed, appeared stated age Eye contact is: fair Motor behavior is: steady gait & station, no abnormal motor movements Speech: normal in rate, rhythm & volume Affect: irritable, constricted Mood is: depressed, anxious Thought process: goal directed, other (illogical with respect to substance abuse) Thought content: cognitive distortions Suicidal thought are: denied Homicidal thoughts are: denied Hallucinations: denies auditory, denies visual Cognition: memory grossly intact, attention grossly intact Intelligence estimated to be: consistent with level of education Insight: impaired Judgement: impaired Impression 61 y/o female with longstanding history of depression and anxiety, on high dose clonazepam, and about a week and a half of taking high doses of lamotrigine, up on her 800mg four times daily, and taking twice the dose of prescribed clonazepam. She reports two falls in the past week, and presented for voluntary admission due to overdose. Plan (1) Mood disorder -The patient is admitted to [facility] ([facility] unit) on q 15 min checks (behavioral with suicide precautions) for safety. The patient will participate in group, recreational and milieu therapies and will be offered additional individual and family sessions as clinically appropriate. -Provisional admitting diagnosis Unspecified Bipolar and Related Disorder due to chronic history of poor sleep and mood swings and maintenance for years with Lamictal for mood stabilization but will need to obtain collateral history from Drs. Hennessy and Donna to help further clarify diagnosis and treatment plan. -Continue Lamictal at prescribed dose of 125mg qAM and 150mg qbedtime until collateral history obtained. Reviewed risk of severe potentially life threatening rash associated with Lamictal and increased risk patient faces with self medicated dose that she was taking. 10/22 -Continue mirtazapine and lamotrigine. -Recommend increased frequency of therapy with Dr. Thompson. -Declines family meeting, saying she does not have anyone to meet with. -Coordinate care with Drs. Hennessy and Donna. Spoke to Dr. Hennessy and Dr. Thompson (see above). Dr. Thompson also recommended consideration of an atypical antipsychotic trial. (2) Generalized anxiety disorder -Obtain collateral history from Drs. Thompson and Gerhard. -Reviewed risks, benefits and alternatives of clonazepam including risk of dependency, risk of withdrawal seizures if abruptly discontinued and short/termite inspector cognitive risks of medication. Will place patient on withdrawal protocol to reassess vitals and monitor for withdrawal given uncertainty as to how much medication patient may have been taking but in the meantime will provide Clonazepam 1mg four times daily and cover any withdrawal with Lorazepam PRN and continue to review based upon response. -reviewed mood altering effects of alcohol, family history of alcohol abuse and interaction risks including blackouts of combining alcohol and Benzodiazepines such as Clonazepam and advised to abstain from alcohol. -Continue Clonidine at 0.3mg at bedtime to help address sleep and anxiety which patient has found ineffective but given risk of withdrawal rebound of blood pressure will have to cover and gradually taper. -Remeron 7.5mg at bedtime as needed for insomnia. 10/22 -Reviewed appropriate dosing for anxiety, and risks of chronic benzodiazepine use, as well as the recommendations to taper slowly over the next few months. Will coordinate care with outpatient physicians as it is unclear who will be prescribing this in the future, as she is switching PCPs. She indicates that her psychiatrist does not want to prescribe the benzos, and it is not clear if Dr. Jeong will be willing to prescribe such large doses. In addition, she will run out of meds a couple of weeks prior to her 12/[address] Lu Jeong, so will need to determine who will prescribe in the interim. Dr. Hennessy will not see her again as she terminated care. -Spoke with Drs. Hennessy and Donna to coordinate care. Neither is willing to prescribe medications for her at this time. Dr. Thompson and myself agree with a primary recommendation for inpatient detox, as she is at high risk for benzo withdrawal, has no outpatient prescribers willing to manage her Klonopin. (3) borderline pesonality traits Rule out BPD. Continue therapy. (4) Drug abuse Abusing lamotrigine and long history of abusing clonazepam, with multiple overdoses in the past, and chronic use at high doses. Dose decreased by 0.5mg qhs on admission, and recommendations are for inpatient detox to get her off this medication, as she has no one willing to prescribe it at this time, has been abusing medications with AMS and high risk of negative outcomes, has no supports and no one she is willing to hand over control of her medications to, and a history of multiple overdoses in the past. She is at high risk for withdrawal if she stops the medication abruptly, which will happen if she is not able to identify a prescribing physician, as she has been on high doses for many years. SHe was informed of the recommendation for detox, and says she wants to talk to Dr. Thompson first. Discharge / Aftercare Planning Primary Care Physician: Name: Dr. Hennessy Therapist: Name: Dr. Feliz Thompson Italian Lecturer: Name: diana Visit Code E&M Code: 31340 Risk Factors Assessment : Yes /single/: Yes Higher / Fall in social status: No Access to guns: No Health problems: Yes (uterine cancer 5 years ago) Mental Health Diagnoses: Yes Substance use disorders: Yes Previous attempt: Yes (multiple overdoses on clonazepam per 2000 records when she was admitted for OD.) Family history of suicide: Yes Previous psychiatric stay: Yes Hopelessness: Yes Smoker: No Protective Factors Assessment Restorationism beliefs: Yes : No Responsible for young children: No Employed: Yes Stable relationships: No Supportive family: No Good rapport with provider: Yes Data Vital Signs Last 24 Hrs: Date Time Temp Pulse Resp B/P (MAP) Pulse Ox O2 Delivery O2 Flow Rate FiO2 10/22/16 06:47 36.8 56 16 97/65 69 99/72 10/21/16 22:36 66 146/90 10/21/16 20:49 36.3 62 16 107/73 10/21/16 16:08 37.1 62 18 102/67 10/21/16 15:03 78 16 128/86 10/21/16 14:01 36.6 76 18 156/99 10/21/16 12:12 36.4 81 18 169/104 Meds Administered Last 24 Hrs: Meds Administered (Past 24Hrs) Medications (Trade) Dose Ordered Sig/Mary Route Start Time Stop Time Status Last Admin Dose Admin Sodium Chloride 1,000 ml @ 150 mls/hr Q6H40M STAT IV 10/20/16 15:00 10/20/16 20:43 DC 10/20/16 16:19 150 MLS/HR Sodium Chloride 500 ml @ 999 mls/hr Q31M STAT IV 10/20/16 15:00 10/20/16 15:30 DC 10/20/16 16:19 999 MLS/HR Clonazepam (Klonopin Tab) 0.5 mg NOW STAT PO 10/20/16 18:26 10/20/16 18:28 DC 10/20/16 18:38 0.5 MG Hydroxyzine HCl (Vistaril Tab) 50 mg HSZ PRN PO 10/20/16 19:45 11/19/16 19:44 10/21/16 00:37 50 MG Clonazepam (Klonopin Tab) 0.5 mg Q4H PRN PO 10/20/16 20:15 10/21/16 11:29 DC 10/21/16 08:18 0.5 MG Clonazepam (Klonopin Tab) 1.5 mg HS PO 10/20/16 22:00 10/21/16 11:29 DC 10/20/16 22:13 1.5 MG Lamotrigine (Lamictal Tab) 25 mg QAM PO 10/21/16 09:00 11/20/16 08:59 10/22/16 08:13 25 MG Lamotrigine (Lamictal Tab) 50 mg HS PO 10/20/16 22:00 11/19/16 21:59 10/21/16 22:06 50 MG Lamotrigine (Lamictal Tab) 100 mg BID PO 10/20/16 22:00 11/19/16 21:59 10/22/16 08:13 100 MG Multivitamins (Multivitamin Tab) 1 tab DAILY PO 10/21/16 09:00 11/20/16 08:59 10/22/16 08:13 1 TAB Clonazepam (Klonopin Tab) 1 mg QID PO 10/21/16 12:00 11/20/16 11:59 10/22/16 08:13 1 MG Clonidine HCl (Catapres Tab) 0.3 mg HS PO 10/21/16 22:00 11/20/16 21:59 10/21/16 22:02 0.3 MG Mirtazapine (Remeron Tab) 7.5 mg HS PRN PO 10/21/16 11:45 11/20/16 11:44 10/21/16 22:24 7.5 MG Lorazepam (Ativan Tab) PRN Dosing -Active Protocol UD PRN PO 10/21/16 12:30 11/20/16 12:29 10/21/16 12:38 1 MG Clonidine HCl (Catapres Tab) 0.2 mg 1300 ONCE PO 10/21/16 13:00 10/21/16 13:01 DC 10/21/16 13:56 0.2 MG
[2016-10-22 12:25] VITALS: BP 120/82; PULSE 98; TEMP 36.3
[2016-10-22 16:05] VITALS: BP 141/101; PULSE 90; TEMP 36.6
[2016-10-22] MEDS: CLONIDINE HCL 0.3 MG TAB PO SCH (21:15)
[2016-10-22 21:18] VITALS: BP 141/101; PULSE 91; TEMP 37
[2016-10-22] MEDS: MIRTAZAPINE TAB 15 MG TAB PO PRN (21:54)
[2016-10-23 06:42] VITALS: BP_SYST 105; BP_SYST 116; BP_DIAS 73; BP_DIAS 76; PULSE 57; PULSE 72; TEMP 36.5
[2016-10-23] MEDS: MULTIVITAMIN TAB PO SCH (08:33)
[2016-10-23] MEDS: CLONAZEPAM 1 MG TAB PO SCH ×2 (08:33→11:24)
[2016-10-23] MEDS ORDERED: KLN1 PO (10:05)
[2016-10-23] MEDS ORDERED: RMR15 PO (10:05)
[2016-10-23] MEDS ORDERED: CLON0.1T12 PO (10:05)
--- NOTE | 2016-10-23 10:15 | Discharge Instructions ---
Discharge Information Report Includes Report will include the: Discharge Instructions & Summary Admission Admission Date / Time: Oct 20, 2016 at 19:02 Reason for Admission: Bipolar, Depressed Discharge Discharge Diagnosis / Problem: Depression, anxiety, medication abuse Condition at Discharge: Fair Discharge Goals Goal(s): Decrease discomfort, Improve disease control, Prevent Disease Progression Activity Recommendations Activity Limitations: resume your previous activity . Instructions / Follow-Up Instructions / Follow-Up . SPECIAL CARE INSTRUCTIONS: 1. Follow through with your scheduled aftercare appointments. If unable to keep an appointment, please call to reschedule. 2. Take your medication only as prescribed. Medication should not be changed or stopped without the approval of your doctor. In the event of worsening symptoms or concerns about side effects, contact your doctor immediately. 3. Utilize new healthy coping skills, anger management skills, and stress management skills learned during your hospitalization. Journal feelings and process them with a support person. Identify stressors or situations that may result in relapse, deterioration or inappropriate behaviors and develop a plan to deal with those issues. 4. If your coping skills are ineffective and you are in crisis, contact your outpatient providers for direction. If unable to reach your providers, please call the CAN HELP LINE AT or go to the closest Emergency Room. 5. Avoid alcohol and un-prescribed drugs. 6. You have been provided with the Mental Health Advance Directives Pamphlet for your review. AFTERCARE APPOINTMENTS: * Please call your insurance company prior to your scheduled appointment to confirm your aftercare providers are covered. Take your insurance information to your appointments. . Discharge / Aftercare Planning Primary Care Physician: Name: Dr Macario at [facility] Date of Appointment: Dec 04, 2016 Time of Appointment: 230 Psychiatrist: Name: Dr Feliz Thompson Date of Appointment: Nov 11, 2016 Time of Appointment: 4:00 Therapist: Name Of Therapist: Dr. Feliz Thompson Date of Appointment: Nov 11, 2016 Time of Appointment: 4:00 News Gathering Technician: Name: diana . Follow-Up Care Plan for Follow-Up Care: Patient will return to see Dr. Thompson on November 11 and is scheduled to see new PCP , Dr. Mari Macario 12/04/16 Current Hospital Diet Patient's current hospital diet: Regular Diet Discharge Diet Recommended Diet: Regular Diet Procedures Procedures Performed: No Pending Studies Pending Studies at Discharge: No Medical Emergencies . Who to Call and When: Medical Emergencies: For questions or emergencies related to your hospital stay, please contact the Inpatient Behavioral Health Unit at [phone]. A pharmacy helper is on-call 10/11 for the Behavioral Health Unit for emergencies At any time you feel your situation is an emergency, you may also call 911 immediately. . Non-Emergent Contact Non-Emergency issues call your: Psychiatrist Advance Directives Existing Advance Directive: No Do You Have an Existing Mental: No Existing Living Will: No (in the process) Existing Power of Lead Applications Developer: No Advance Directives Info Given: To Pt/S.O. Advance Directives Reason: Declines as Mental Health Visit. Discharge Summary Admission HPI Per the Admitting provider: Patient is a 61 yo female. She reports that she had been struggling with anxiety and depression for years. Her mood worsened significantly after her from cardiomyopathy on November 15, 2004. She has felt more depressed and anxious over the past 2 to 3 weeks and associated with this had been struggling to get to sleep. She has struggled with poor sleep for the past few years but this has decreased to 4 to 5 hours sleep over the past few weeks. She had attempted to self medicate poor sleep with increasing Lamictal from 125mg QAM and 150mg qbedtime to 800mg four times daily on her own. In addition, she has been taking Clonazepam for she estimates the past 20 years and for the past at least 6 months she reports that she has been taking 1mg five times daily. A few weeks ago she started Clonidine and prescribed 0.1 to 0.2mg at bedtime PRN to help sleep but admits that she had been taking up to 0.5mg at bedtime but did not have any benefit with sleep. Two episodes of falling over the past two weeks. Patient denies any other manic symptoms other than chronic history of decreased sleep and mood swings. She has been in treatment with Dr. Thompson, Behavioral medicine for over 20 years but reports that her medications are prescribed by her primary care physician, Dr. Hennessy but she is in the process of transferring to new primary care physician, Dr. Mackenzie Macario. Patient is unsure of diagnosis but believes medications are prescribed for anxiety, mood stabilization and sleep. Patient denies any thoughts to harm self or others. She reports that taking additional Lamictal was strictly an effort to get to sleep and not to take her life. Reports that she was desperate to get to sleep. Denies auditory or visual hallucinations. No paranoia. Hospital Course (1) Mood disorder -The patient is admitted to [facility] on q 15 min checks (behavioral with suicide precautions) for safety. The patient will participate in group, recreational and milieu therapies and will be offered additional individual and family sessions as clinically appropriate. -Provisional admitting diagnosis Unspecified Bipolar and Related Disorder due to chronic history of poor sleep and mood swings and maintenance for years with Lamictal for mood stabilization but will need to obtain collateral history from Drs. Hennessy and Donna to help further clarify diagnosis and treatment plan. -Continue Lamictal at prescribed dose of 125mg qAM and 150mg qbedtime until collateral history obtained. Reviewed risk of severe potentially life threatening rash associated with Lamictal and increased risk patient faces with self medicated dose that she was taking. 10/22 -Continue mirtazapine and lamotrigine. -Recommend increased frequency of therapy with Dr. Thompson. -Declines family meeting, saying she does not have anyone to meet with. -Coordinate care with Drs. Hennessy and Donna. Spoke to Dr. eHnnessy and Dr. Thompson (see above). Dr. Thompson also recommended consideration of an atypical antipsychotic trial. (2) Generalized anxiety disorder -Obtain collateral history from Drs. Thompson and Gerhard. 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 Will place patient on withdrawal protocol to reassess vitals and monitor for withdrawal given uncertainty as to how much medication patient may have been taking but in the meantime will provide Clonazepam 1mg four times daily and cover any withdrawal with Lorazepam PRN and continue to review based upon response. -reviewed mood altering effects of alcohol, family history of alcohol abuse and interaction risks including blackouts of combining alcohol and Benzodiazepines such as Clonazepam and advised to abstain from alcohol. -Continue Clonidine at 0.3mg at bedtime to help address sleep and anxiety which patient has found ineffective but given risk of withdrawal rebound of blood pressure will have to cover and gradually taper. -Remeron 7.5mg at bedtime as needed for insomnia. 10/22 -Reviewed appropriate dosing for anxiety, and risks of chronic benzodiazepine use, as well as the recommendations to taper slowly over the next few months. Will coordinate care with outpatient physicians as it is unclear who will be prescribing this in the future, as she is switching PCPs. She indicates that her psychiatrist does not want to prescribe the benzos, and it is not clear if Dr. Jeong will be willing to prescribe such large doses. In addition, she will run out of meds a couple of weeks prior to her 12/[address] Lu Jeong, so will need to determine who will prescribe in the interim. Dr. Hennessy will not see her again as she terminated care. -Spoke with Drs. Hennessy and Donna to coordinate care. Neither is willing to prescribe medications for her at this time. Dr. Thompson and myself agree with a primary recommendation for inpatient detox, as she is at high risk for benzo withdrawal, has no outpatient prescribers willing to manage her Klonopin. (3) borderline pesonality traits Rule out BPD. Continue therapy. (4) Drug abuse Abusing lamotrigine and long history of abusing clonazepam, with multiple overdoses in the past, and chronic use at high doses. Dose decreased by 0.5mg qhs on admission, and recommendations are for inpatient detox to get her off this medication, as she has no one willing to prescribe it at this time, has been abusing medications with AMS and high risk of negative outcomes, has no supports and no one she is willing to hand over control of her medications to, and a history of multiple overdoses in the past. She is at high risk for withdrawal if she stops the medication abruptly, which will happen if she is not able to identify a prescribing physician, as she has been on high doses for many years. SHe was informed of the recommendation for detox, and says she wants to talk to Dr. Thompson first. Risk Factors Assessment : Yes /single/: Yes Higher / Fall in social status: No Access to guns: No Health problems: Yes (uterine cancer 5 years ago) Mental Health Diagnoses: Yes Substance use disorders: Yes Previous attempt: Yes (multiple overdoses on clonazepam per 2000 records when she was admitted for OD.) Family history of suicide: Yes Previous psychiatric stay: Yes Hopelessness: Yes Smoker: No Protective Factors Assessment Christian beliefs: Yes : No Responsible for young children: No Employed: Yes Stable relationships: No Supportive family: No Good rapport with provider: Yes Day of Discharge Assessment COURSE OF HOSPITALIZATION: The patient was admitted to the hospital due to reports of increasing depression and anxiety over recent weeks associated with insomnia. She had escalated her own dosage of Lamictal to 800 mg 4 times a day and had been taking 5 mg of Klonopin daily in an effort to self medicate. She consistently denied that this was done in a suicide attempt. History was obtained from her outpatient providers including Dr. Zoran Thompson's and Dr. Hennessy. It was confirmed that she has a long history of overdosing on medicines as well as abusing medicines. Dr. Thompson refused to continue to prescribe the doses of medications that she wanted which is why she turned her PCP, Dr. Hennessy. He recently also stopped prescribing as the patient fired him. He gave her one final prescription and she is to speak seen by Dr. Lu Cherry in November. We tapered her Klonopin down to 1 mg 4 times daily and returned her Lamictal to her standard outpatient dosing. We also continued clonidine 0.3 mg at bedtime which was added as an outpatient for sleep. We started Remeron 7.5 mg at bedtime for sleep which was very effective getting 6 or 7 hours per night while she was here. Our staff was also in touch with Dr. Cherry's office to confirm that they would not prescribe any medications including her controlled substances until after she been seen by her new PCP. All of this was reviewed with the patient who continued to challenge that idea saying that Dr. Cherry's office said that they would prescribe for her if she needed. A complication arose during her stay in that she knew one of the part-time staff members. This made her significantly uncomfortable as she had been friends with this person and a prior work situation. She decided that that would interfere with her ability to have further treatment on the unit and so today is asking for discharge. She had been given reassurance that the staff member would distance herself as much as possible while she was working however that was not sufficient for the patient and she is requesting discharge. She has no outpatient prescribers were willing to give her any more Klonopin and so based on the number of pills she has left in her bottle (84 1 mg pills, 3/2 tabs) we will prescribe a taper of her Klonopin over the next 5 weeks which should get her to her appointment in November. DAY OF DISCHARGE ASSESSMENT: As above, the patient is requesting discharge. She continues to deny any suicidal or homicidal ideation, and has never presented with any evidence of thought disorder. She has tolerated reducing her medications back to reasonable levels and a small taper of her Klonopin. I have told her that we will use her existing supply of Klonopin to taper and she is in agreement with this. She denies any concerns about going home today. She has a follow-up appointment with Dr. Thompson next week. Today she is casually and appropriately dressed and groomed. Eye contact is good. Gait and station are within normal limits. Speech is of normal rate volume and tone. Thoughts are somewhat tangential, circumstantial, having to be redirected back to the question at hand. Her recent and remote memory appear to be intact per conversation. Intelligence is estimated to be average. Insight and judgment are improved over admission. Laboratory Test 10/20/16 14:25 10/20/16 15:35 Urine Color YELLOW Urine Appearance CLEAR Urine pH 6.0 Urine Specific [place] 1.010 Urine Protein NEG Urine Glucose (UA) NEG Urine Ketones NEG Urine Occult Blood NEG Urine Nitrite NEG Urine Bilirubin NEG Urine Urobilinogen NEG Urine Leukocyte Esterase NEG Urine Synthetic Stimulants Pending Urine Opiates Screen NEG Urine Methadone, Qualitative NEG Urine Barbiturates NEG Urine Phencyclidine (PCP) Level NEG Ur Amphetamine/Methamphetamine NEG MDMA (Ecstasy) Screen NEG Urine Benzodiazepines Screen NEG Urine Cocaine Metabolite NEG Cannabinoids Comment Pending Urine Synthetic Cannabinoids Pending Ur Synthetic Cannabinoids Confirm Pending Urine Marijuana (THC) NEG White Blood Count 5.94 Red Blood Count 3.89 Hemoglobin 12.1 Hematocrit 34.7 Mean Corpuscular Volume 89.2 Mean Corpuscular Hemoglobin 31.1 Mean Corpuscular Hemoglobin Concent 34.9 Platelet Count 322 Mean Platelet Volume 9.6 Neutrophils (%) (Auto) 51.7 Lymphocytes (%) (Auto) 33.0 Monocytes (%) (Auto) 11.6 Eosinophils (%) (Auto) 3.2 Basophils (%) (Auto) 0.3 Neutrophils # (Auto) 3.07 Lymphocytes # (Auto) 1.96 Monocytes # (Auto) 0.69 Eosinophils # (Auto) 0.19 Basophils # (Auto) 0.02 RDW Standard Deviation 41.5 RDW Coefficient of Variation 12.7 Immature Granulocyte % (Auto) 0.2 Immature Granulocyte # (Auto) 0.01 Sodium Level 131 Potassium Level 4.3 Chloride Level 97 Carbon Dioxide Level 25 Anion Gap 9.0 Blood Urea Nitrogen 6 Creatinine 0.96 Est Creatinine Clear Calc Drug Dose 55.4 Estimated GFR () 74.0 Estimated GFR (Non- 63.8 BUN/Creatinine Ratio 6.6 Random Glucose 94 Calcium Level 8.9 Magnesium Level 2.1 Total Bilirubin 0.4 Direct Bilirubin < 0.1 Aspartate Amino Transferase (AST) 20 Alanine Aminotransferase (ALT) 24 Alkaline Phosphatase 61 Total Protein 7.2 Albumin 4.3 Thyroid Stimulating Hormone (TSH) 1.870 Salicylates Level < 1.7 Acetaminophen Level < 2 Lamotrigine (Lamictal) Level Pending Ethyl Alcohol mg/dL < 3.0 Total Time Total Time Spent (min): Greater than 30 minutes Total Time Included: examination of the patient, discharge planning, medication reconciliation, communication with other providers Tobacco Cessation at Discharge Smoking Status: Former Smoker (aged 16-21yo) FDA approved Prescription: non-smoker
[2016-10-26 19:38] LABS: SYNTHETIC CANNABINOIDS QL URIN NEGATIVE (Negative)
== END 2016-10-23 13:18 | disposition home or self-care (01) | DRG 885 ==
LOC: C.EDB 13:49 → C.MHU 19:02 → ENRESERV 19:34
PROVIDERS: ADMIT Psychiatry & Neurology Psychiatry; ATTEND Psychiatry & Neurology Psychiatry
DX: F39 Unspecified mood [affective] disorder (principal); F41.1 Generalized anxiety disorder; F13.180 Sedative, hypnotic or anxiolytic abuse with sedative, hypnotic or anxiolytic-induced anxiety disorder; Z85.42 Personal history of malignant neoplasm of other parts of uterus; F19.10 Other psychoactive substance abuse, uncomplicated; Z90.710 Acquired absence of both cervix and uterus; Z87.891 Personal history of nicotine dependence; Z91.040 Latex allergy status; Z88.2 Allergy status to sulfonamides

== ENCOUNTER 2016-10-26 17:43 | Emergency (ER) | payer BC ==
[~2016-10-26] VITALS: Ht 165.1 cm; Wt 61.2 kg
[~2016-10-26 17:43] MED LIST changes: -ASCO500T16 PO; +CLON0.1T12 PO; -CLON1TAB3 PO; -IBUP-1428 PO; +KLN1 PO; +LAMO25TA PO; -LMC25 PO; -OMEG10007 PO; +RMR15 PO
[2016-10-26 17:47] VITALS: TEMP 36.5; Ht 165.1 cm; Wt 61.2 kg
[2016-10-26 18:44] LABS: BASO % 0.3 %; BASO ABS # 0.02 K/uL (0-0.2); COMPLETE YES; EOS % 3.8 %; HEMATOCRIT 39.6 % (37-47); IG% 0.2 %; LYMPH % 36.6 %; LYMPH ABS # 2.34 K/uL (1.2-3.4); MEAN CELL VOLUME 91.5 fL (80-100); MEAN CORPUSCULAR HEMOGLOBIN 31.6 pg (25-34); MEAN CORPUSCULAR HGB CONC 34.6 g/dl (32-36); MEAN PLATELET VOLUME 9.6 fL (7.4-10.4); MONO % 14.4 %; NEUT % 44.7 %; PLATELET COUNT 368 K/uL (130-400); RED BLOOD COUNT 4.33 M/uL (4.2-5.4); WHITE BLOOD COUNT 6.39 K/uL (4.8-10.8)
[2016-10-26 18:57] LABS: POINT OF CARE TROPONIN I < 0.030 ng/ml (0-0.045)
[2016-10-26 19:00] LABS: CALCIUM 9.5 mg/dl (8.5-10.1); CREATININE 0.93 mg/dl (0.60-1.20); POTASSIUM 4.1 mmol/L (3.5-5.1)
--- NOTE | 2016-10-26 19:16 | DIAGNOSTIC IMAGING REPORT ---
SINGLE VIEW CHEST CLINICAL HISTORY: Fever. FINDINGS: An AP, portable, upright chest radiograph is compared to study dated 08/29/2016. No prior studies are available for comparison at the time of dictation. The cardiomediastinal silhouette is unremarkable. There is mild atherosclerotic calcification of the thoracic aorta. The lungs and pleural spaces are clear. No pneumothorax is seen. The bony thorax is grossly intact. IMPRESSION: No active disease in the chest. Electronically signed by: Elier West M.D. 10/26/2016 7:14 PM Dictated Date/Time: 10/26/2016 7:14 PM
[2016-10-26] MEDS ORDERED: CLON1TAB3 PO (19:29)
[2016-10-26] MEDS ORDERED: CLON1TAB PO (19:44)
[2016-10-26] MEDS ORDERED: CLONAZEPAM 1 MG TAB PO STA (20:16)
[2016-10-26 20:48] VITALS: BP 141/96; PULSE 81; O2SAT 99
[2016-10-26] MEDS ORDERED: CLON0.3T PO (20:52)
--- NOTE | 2016-10-26 23:50 | EMERGENCY ROOM VISIT NOTE ---
History Report prepared by Thong: Pau Pineda Under the Supervision of: Dr. Lonnie Balderas M.D. First contact with patient: 17:58 Chief Complaint: OTHER COMPLAINT Stated Complaint: WITHDRAWAL FROM MED History of Present Illness The patient is a 61 year old female who presents to the Emergency Room with complaints of gradually worsening withdrawal symptoms that began one week ago. The patient states that for the past week she has been experiencing worsened symptoms since she has been tapering her Klonopin. She states that she is currently taking 1 mg 4 times per day when she used to be taking 4.5-5 mg throughout a day. The patient states that she was on that dose for over fifteen years. She states that she talked to her an on-call nurse and was instructed to take Benadryl today. The Benadryl relieved her chest pain. The patient states that she was sent to the emergency department today to have a new script for her Klonopin. She notes that she is also taking Clonidine and Remeron, but denies any Ativan use. The patient states that today she has been experiencing central chest tightness, palpitations, shakiness, and difficulty ambulating. The patient states that her chest tightness started around 2:30pm. She states that these are not similar symptoms that she has had with her panic attacks. The patient denies any diaphoresis or leg edema. She states that she noticed shallowed breathing during the pain but not shortness of breath. The patient denies any drug use or being a smoker. She denies any history of PEs or DVTs. The patient states that with her panic attacks she typically notices a knot in her stomach. She states that today she feels that she drank regular coffee, when she typically does not. The patient states that she worked out yesterday, but denies having any chest tightness during her work- out. She Mountain bikes. She reports a history of uterine cancer, noting that she has been prescribed her Klonopin for several years. The patient states that she has been anxious today about her symptoms. She denies any suicidal or homicidal ideation. The patient states that she has withdrawn from Klonopin in the past but cannot remember the exact symptoms. She states that she now has nausea. The patient denies any history of heart disease or family history of heart disease. Source of History: patient Onset: one week ago Position: other (global) Quality: other (withdrawal symptoms) Timing: worsening Modifying Factors (Relieving): other (benadryl) Associated Symptoms: + nausea, No diaphoresis Note: Associated Symptoms: shallowed breathing, chest tightness, difficulty ambulating , palpitations. Review of Systems See HPI for pertinent positives & negatives. A total of 10 systems reviewed and were otherwise negative. 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 Social History Smoking Status: Never Smoker Alcohol Use: occasionally Marital Status: Housing Status: lives alone Occupation Status: employed Current/Historical Medications Scheduled Cholecalciferol (D 400), 400 PO DAILY Clonazepam (Klonopin), 1 MG PO UD Clonazepam (Klonopin), 1 TAB PO QID Clonidine Hcl (Catapres), 0.3 MG PO HS Clonidine Hcl (Catapres), 1 TAB PO HS Lamotrigine (Lamictal), 100 MG PO BID Lamotrigine (Lamictal), 25 MG PO QAM Lamotrigine (Lamictal), 50 MG PO HS Multivitamin (Multivitamin), 1 TAB PO DAILY Scheduled PRN Mirtazapine (Mirtazapine), 7.5 MG PO HS PRN for Insomnia Allergies Coded Allergies: Lanolin (Verified Allergy, Unknown, 10/26/16) Latex1 -Allergic Contact Dermititis (Unverified Allergy, Unknown, dry cracked skin, 10/26/16) Molds and Smuts (Unverified Allergy, Unknown, RASH, 10/26/16) Sulfa Drugs (Unverified Allergy, Unknown, swollen lips and tongue, 10/26/16) Sulfamethoxazole w/Trimethoprim (Verified Allergy, Unknown, ., 10/26/16) Amoxicillin (Unverified Adverse Reaction, Unknown, stomach can't tolerate , 10/26/16) Physical Exam Vital Signs Date Time Temp Pulse Resp B/P (MAP) Pulse Ox O2 Delivery O2 Flow Rate FiO2 10/26/16 20:48 81 18 141/96 99 Room Air 10/26/16 19:30 87 20 154/98 98 Room Air 10/26/16 18:45 69 10/26/16 17:47 36.5 90 16 168/102 99 Room Air Physical Exam Constitutional: Vital signs reviewed. Eyes: Pupils are equal round reactive to light. Conjunctiva are noninjected. ENT: Pharynx is clear without erythema or exudate. Mucous membranes are moist. Neck supple without meningeal signs. Respiratory: Clear to auscultation bilaterally. Breath sounds are equal bilaterally. Cardiovascular: Regular rate and rhythm. No rubs or gallops. GI: Soft, nondistended and nontender. Bowel sounds are present. Musculoskeletal: No peripheral edema. No lower extremity tenderness. Integumentary: No cyanosis. Neurological: The patient is awake and alert. No focal deficits. Psychiatric: Very anxious affect. Medical Decision & Procedures ER Provider Diagnostic Interpretation: X-ray results as stated below per interpretation by me and the radiologist: SINGLE VIEW CHEST CLINICAL HISTORY: Fever. FINDINGS: An AP, portable, upright chest radiograph is compared to study dated 08/29/2016. No prior studies are available for comparison at the time of dictation. The cardiomediastinal silhouette is unremarkable. There is mild atherosclerotic calcification of the thoracic aorta. The lungs and pleural spaces are clear. No pneumothorax is seen. The bony thorax is grossly intact. IMPRESSION: No active disease in the chest. Electronically signed by: Elier West M.D. 10/26/2016 7:14 PM Dictated Date/Time: 10/26/2016 7:14 PM Laboratory Results 10/26/16 18:30 Red Blood Count 4.33, Mean Corpuscular Volume 91.5, Mean Corpuscular Hemoglobin 31.6, Mean Corpuscular Hemoglobin Concent 34.6, Mean Platelet Volume 9.6, Neutrophils (%) (Auto) 44.7, Lymphocytes (%) (Auto) 36.6, Monocytes (%) (Auto) 14.4, Eosinophils (%) (Auto) 3.8, Basophils (%) (Auto) 0.3, Neutrophils # (Auto ) 2.86, Lymphocytes # (Auto) 2.34, Monocytes # (Auto) 0.92, Eosinophils # (Auto ) 0.24, Basophils # (Auto) 0.02 10/26/16 18:30 Test 10/26/16 18:30 10/26/16 18:38 10/26/16 20:11 White Blood Count 6.39 K/uL (4.8-10.8) Red Blood Count 4.33 M/uL (4.2-5.4) Hemoglobin 13.7 g/dL (12.0-16.0) Hematocrit 39.6 % (37-47) Mean Corpuscular Volume 91.5 fL (80-100) Mean Corpuscular Hemoglobin 31.6 pg (25-34) Mean Corpuscular Hemoglobin Concent 34.6 g/dl (32-36) Platelet Count 368 K/uL (130-400) Mean Platelet Volume 9.6 fL (7.4-10.4) Neutrophils (%) (Auto) 44.7 % Lymphocytes (%) (Auto) 36.6 % Monocytes (%) (Auto) 14.4 % Eosinophils (%) (Auto) 3.8 % Basophils (%) (Auto) 0.3 % Neutrophils # (Auto) 2.86 K/uL (1.4-6.5) Lymphocytes # (Auto) 2.34 K/uL (1.2-3.4) Monocytes # (Auto) 0.92 K/uL (0.11-0.59) Eosinophils # (Auto) 0.24 K/uL (0-0.5) Basophils # (Auto) 0.02 K/uL (0-0.2) RDW Standard Deviation 43.3 fL (36.4-46.3) RDW Coefficient of Variation 12.9 % (11.5-14.5) Immature Granulocyte % (Auto) 0.2 % Immature Granulocyte # (Auto) 0.01 K/uL (0.00-0.02) Prothrombin Time 11.0 SECONDS (9.0-12.0) Prothromb Time International Ratio 1.0 (0.9-1.1) Activated Partial Thromboplast Time 26.9 SECONDS (21.0-31.0) Partial Thromboplastin Ratio 1.0 Anion Gap 8.0 mmol/L (3-11) Est Creatinine Clear Calc Drug Dose 57.2 ml/min Estimated GFR () 76.9 Estimated GFR (Non- 66.3 BUN/Creatinine Ratio 10.0 (10-20) Calcium Level 9.5 mg/dl (8.5-10.1) Bedside D-Dimer 116 ng/mlFEU (0-450) Bedside Troponin I < 0.030 ng/ml (0-0.045) Laboratory results as reviewed by me. Medications Administered Medications (Trade) Dose Ordered Sig/Mary Route Start Time Stop Time Status Last Admin Dose Admin Clonazepam (Klonopin Tab) 1 mg NOW STAT PO 10/26/16 20:16 10/26/16 20:18 DC 10/26/16 20:16 1 MG ECG Indication: chest pain Rate (beats per minute): 70 Rhythm: normal sinus Findings: no acute ischemic change, no ectopy ED Course 1804: The patient was evaluated in room A8. A complete history and physical exam was performed. 1826: I discussed the patients case with Dr. Kamara, Psychiatry. He states to take the patient off the taper and keep at 4 mg per day. He states that the patients PCP can decide when to taper her. She can also be prescribed Seroquel. 1838: I reevaluated the patient and she does not wish to have the Seroquel. She states that she has 80 tablets of Klonopin left and would like to delay the taper. The nursing staff will try to get the patient an earlier appointment. 1919: I reevaluated the patient and she is resting. I discussed the exam findings with her. She is going to have a second troponin drawn at 90 minute from her first. 2015: Ordered Clonazepam 1 mg PO. 2024: I reevaluated the patient and she is resting comfortably. Her repeat Troponin is negative. I discussed the exam findings with her and I discussed the treatment plan. She verbalized complete understanding and agreement. She is ready to go home. 2047: The patient requested a prescription for Clonidine. Medical Decision This is a 61-year-old female presents with chest tightness. Differential diagnosis includes benzodiazepine withdrawal, anxiety, panic attack, IN, pulmonary embolism, metabolic derangement. I did perform a limited focused review of portions of the patient's old chart on the electronic medical record. The patient was admitted to [facility], she was started on Benzodiazepine taper. She was given Clonazepam 1 mg 4 times per day, and PRN Ativan. She was given Clonidine as well. And Remeron for insomnia. Medication Reconciliation: I attest that I have personally reviewed the patient' s current medication list. Blood Pressure Screening: Patient was found to have an elevated blood pressure and was referred to their primary doctor for recheck and further treatment. I did evaluate the patient as noted above. The patient is presenting with chest tightness and palpitations since she was started on a Klonopin taper. She has been on Klonopin for 15 years and was just discharged from the mental health unit with a taper. She feels like she is not handling the paper well. She called the psychiatrist several times. The nurse had told her to take Benadryl which seemed to relieve her chest discomfort. She does not have any history of cardiac disease and states that she went mountain biking yesterday and did not have any chest pain with exertion. Her symptoms seem more consistent with anxiety and benzodiazepine withdrawal. IV access was established. The patient was placed on a continuous disaster or damage control specialist. I did order and personally review the patient's 12-lead EKG and chest x-ray as described above. I did order and review the patient's blood work as noted in the electronic medical record. I did discuss the case with Dr. Kamara of psychiatry. He recommended stopping her taper and possibly adding Seroquel if she preferred. He recommended she follow up with her PCP. The patient does not have a PCP appointment until December 04 and states that she only has about 80 pills left. She was not given a prescription. I did check the [facility] database and this coincides with what she told me. She also states that she does not wish to be placed on Seroquel. I will provide her with a prescription for Klonopin so that she can see her doctor and developed a at her taper plan for her benzodiazepines. I did talk to the mental health case supervisor who stated that she will try to get her an earlier appointment as well. The patient was discharged with a prescription for Klonopin as well as clonidine. [place] Drug Monitoring Program Search Results: patient reviewed within database, see additional documentation Drug Monitoring Findings: The patient was prescribed 150 Klonopin on October 06. Consults Time Called: 1824 Consulting Physician: Dr. Kamara, Psychiatry Returned Call: 1826 I discussed the patients case with Dr. Kamara, Psychiatry. He states to take the patient off the taper and keep at 4 mg per day. He states that the patients PCP can decide when to taper her. She can also be prescribed Seroquel. Impression Primary Impression: Acute chest pain Additional Impressions: Benzodiazepine withdrawal Generalized anxiety disorder Scribe Attestation The scribe's documentation has been prepared under my direct and personally reviewed by me in its entirety. I confirm that the note above accurately reflects all work, treatment, procedures, and medical decision making performed by me. Departure Information Dispostion Home / Self-Care Prescriptions Clonidine Hcl (CATAPRES) 0.3 Mg Tab 1 TAB PO HS for 30 Days, #30 TAB 2 Refills Prov: Lonnie Balderas M.D. 10/26/16 Clonazepam (KLONOPIN) 1 Mg Tab 1 TAB PO QID, #70 TAB 1 Refill Prov: Lonnie Baledras M.D. 10/26/16 Referrals No Doctor, Assigned (PCP) Forms HOME CARE DOCUMENTATION FORM, IMPORTANT VISIT INFORMATION, WORK / SCHOOL INSTRUCTIONS Patient Instructions ED Chest Pain Atypical Unkn Cause, ED Withdrawal Benzodiazepine, [facility] Additional Instructions You have been examined and treated today on an emergency basis only. This is not a substitute for, or an effort to provide, complete comprehensive medical care. It is impossible to recognize and treat all injuries or illnesses in a single emergency department visit. It is therefore important that you follow up closely with your physician. The case supervisor will try to get an earlier appointment tomorrow. Return for worsening symptoms or if you develop fever, vomiting, shortness of breath or any other concerning symptoms. Problem Qualifiers Additional Impressions: Benzodiazepine withdrawal Complication of substance-induced condition: uncomplicated Qualified Codes: F13.230 - Sedative, hypnotic or anxiolytic dependence with withdrawal, uncomplicated
== END 2016-10-26 20:51 | disposition home or self-care (01) ==
LOC: C.EDB 17:44 → C.EDA 20:51
DX: R07.9 Chest pain, unspecified (principal); F13.230 Sedative, hypnotic or anxiolytic dependence with withdrawal, uncomplicated; F41.1 Generalized anxiety disorder; Z85.42 Personal history of malignant neoplasm of other parts of uterus

== ENCOUNTER 2016-12-26 13:43 | Emergency (ER) | payer BC ==
[~2016-12-26] VITALS: Ht 165.1 cm; Wt 59.0 kg
[~2016-12-26 13:43] MED LIST changes: +CLON0.3T PO; +CLON1TAB PO; +CLON1TAB3 PO; -KLN1 PO
[2016-12-26 13:46] VITALS: TEMP 36.5; Ht 165.1 cm; Wt 59.0 kg
[2016-12-26] MEDS ORDERED: KETOROLAC TROMETHAMINE 60 MG/2 ML VIAL IM STA (14:43)
[2016-12-26] MEDS ORDERED: CYCL10TA6 PO (14:47)
--- NOTE | 2016-12-26 14:48 | EMERGENCY ROOM VISIT NOTE ---
ED Visit Note First contact with patient: 14:20 CHIEF COMPLAINT: Mid back pain 2 days HISTORY OF PRESENT ILLNESS: Patient is a [id number] 61-year-old white female who presents to the emergency department for evaluation of left-sided mid back pain. She states her symptoms started yesterday. She describes it as her "muscle spasming." It is located between her left scapula and her spine. She has had symptoms similar to this previously. She has been thoroughly evaluated including MRI and has done some physical therapy. She thinks her symptoms may have been exacerbated by packing, she is in the process of moving. Pain is worse with sitting and with certain movements. She is alternate ice and heat, massage, Epsom salts soaks and ibuprofen. She rates her pain a 9/10 presently. No chest or abdominal pain. No numbness, weakness, or tingling of extremities. She denies any shortness of breath. REVIEW OF SYSTEMS: Review of systems as per HPI. All other systems reviewed were negative. 10 systems reviewed. PMH: Electronic medical records are reviewed and summarized as above/below. See Problem List. SOCIAL HISTORY: Patient lives at home by herself. She is not employed, denies tobacco use.. PHYSICAL EXAM: Vital Signs: Reviewed Nurse's notes. CONSTITUTIONAL: Patient is a well-appearing 61-year-old white female who is awake and alert and in mild distress. She is standing in the exam room. There is significant discomfort with position changes. NECK: No bruits auscultated. Supple without lymphadenopathy. No thyromegaly. No meningeal signs. Full active range of motion without discomfort. CARDIOVASCULAR: Regular rate and rhythm. Peripheral pulses easily palpable. RESPIRATORY: Breath sounds equal and clear to auscultation. Full and equal chest expansion without accessory muscle use or retractions. INTEGUMENTARY: No lesions or rash, normal skin turgor. LYMPH: No lymphadenopathy. SPINE: Examination of the patient's back does not demonstrate any ecchymosis, abrasions or outward signs of trauma. No erythema, increased warmth or induration. Patient has reproducible muscle tenderness and spasm in the left rhomboid distribution, between the thoracic spinous processes and the edge of the scapula. She does have a palpable knot that is exquisitely tender. EXTREMITIES: Upper extremity DTRs are equal and symmetrical bilaterally. Distal pulses are easily palpable. Sensation light touch is intact over the upper extremities bilaterally. EMERGENCY DEPARTMENT COURSE: Patient was seen and assessed as above. Her old records were reviewed. She was treated with Toradol 60 mg IM. She reports that she typically responds well to muscle relaxers, she has been given Flexeril in the past. She was given a prescription for this. The patient does not have any neurologic deficits to suspect acute cord compression. She has no injury to suspect fracture and therefore was not felt that any radiographs were indicated. Her prior records including and MRI were reviewed. Patient was encouraged to continue conservative care including heat, gentle stretching and massage and to stay on an anti-inflammatory medicine. She was advised to follow -up with her primary care provider for further care and evaluation if her symptoms are not improving. The patient rated her pain a 5/10 at discharge. Patient was reviewed in the [facility] Prescription Drug Monitoring Program. She receives regular Klonopin prescriptions, but no narcotics. Medication reconciliation: I attest that I have personally reviewed the patient' s current medication list. Blood pressure screening: Patient was found to have a slightly elevated blood pressure due to circumstances. I do not believe that the patient requires hypertension monitoring. Problem List Medical Problems: (1) Anemia Nos Status: Chronic (2) Lipoma Nos Status: Resolved (3) Malig Nicholas Corpus Uteri Status: Resolved (4) Recurr Depr Disord-Unsp Status: Chronic (5) Solitary Cyst Of Breast Status: Resolved Current/Historical Medications Scheduled Cholecalciferol (D 400), 400 PO DAILY Clonazepam (Klonopin), 1 MG PO UD Clonazepam (Klonopin), 1 TAB PO QID Clonidine Hcl (Catapres), 0.3 MG PO HS Clonidine Hcl (Catapres), 1 TAB PO HS Lamotrigine (Lamictal), 100 MG PO BID Lamotrigine (Lamictal), 25 MG PO QAM Lamotrigine (Lamictal), 50 MG PO HS Multivitamin (Multivitamin), 1 TAB PO DAILY Scheduled PRN Cyclobenzaprine Hcl (Flexeril), 10 MG PO TID PRN for Muscle Spasms Mirtazapine (Mirtazapine), 7.5 MG PO HS PRN for Insomnia Allergies Coded Allergies: Lanolin (Verified Allergy, Unknown, 12/26/16) Latex1 -Allergic Contact Dermititis (Unverified Allergy, Unknown, dry cracked skin, 12/26/16) Molds and Smuts (Unverified Allergy, Unknown, RASH, 12/26/16) Sulfa Drugs (Unverified Allergy, Unknown, swollen lips and tongue, 12/26/16) Sulfamethoxazole w/Trimethoprim (Verified Allergy, Unknown, ., 12/26/16) Amoxicillin (Unverified Adverse Reaction, Unknown, stomach can't tolerate , 12/26/16) Vital Signs Date Time Temp Pulse Resp B/P (MAP) Pulse Ox O2 Delivery O2 Flow Rate FiO2 12/26/16 15:21 71 18 131/97 98 12/26/16 13:46 36.5 88 20 146/93 97 Room Air Medications Administered Medications (Trade) Dose Ordered Sig/Mary Route Start Time Stop Time Status Last Admin Dose Admin Ketorolac Tromethamine (Toradol Inj) 60 mg NOW STAT IM 12/26/16 14:43 12/26/16 14:44 DC 12/26/16 14:58 60 MG Departure Information Impression Primary Impression: Spasm of thoracic back muscle Prescriptions Cyclobenzaprine Hcl (FLEXERIL) 10 Mg Tab 10 MG PO TID Y for Muscle Spasms, #30 TAB Prov: Sierra Joy PA 12/26/16 Referrals No Doctor, Assigned (PCP) Patient Instructions [facility] Additional Instructions Cyclobenzaprine (Flexeril) 10 mg: Take 1 pills 3 times daily as needed for muscle spasms.. Avoid alcohol, operating machinery or dangerous equipment, working on ladders or roofs, DRIVING, or situations where being under the influence may be dangerous. Ibuprofen(Motrin, Advil) may be used for fever or pain. Use 600mg every six hours as needed. Take with food. Avoid using more than 2400mg in a 24 hour period. Do not use 2400mg per day for more than three consecutive days without physician direction. Prolonged inappropriate use can lead to stomach upset or ulcers. This medication can be taken if you need to drive, work, or perform activities which may be dangerous when taking narcotic pain medication. (AND/OR) Acetaminophen(Tylenol) may be used for fever or pain. Use 1000mg every six hours as needed. Avoid using more than 3000mg in a 24 hour period. This medication can be taken if you need to drive, work, or perform activities which may be dangerous when taking narcotic pain medication. Rest and avoid heavy lifting until your symptoms resolve and then gradually return to full activity. A good rule of thumb is if it hurts your back to perform a certain activity, then it should be avoided until you are healthy again. A heating pad, warm compresses, or a hot shower may help with tight muscles and can be done several times a day as needed. Gentle stretching exercises/massage to help reduce stiffness and spasm. Continue current medications. Return to the ER immediately for any numbness, tingling, severe pain, loss of control of your bowels or bladder, inability to walk, or as needed. Follow up with your primary care physician within 3-5 days for a recheck of your current condition.
[2016-12-26 15:21] VITALS: BP 131/97; PULSE 71; O2SAT 98
== END 2016-12-26 15:28 | disposition home or self-care (01) ==
LOC: C.EDB 13:44 → C.EDD 15:28
DX: M62.830 Muscle spasm of back (principal); D64.9 Anemia, unspecified; F32.9 Major depressive disorder, single episode, unspecified; Z79.899 Other long term (current) drug therapy

== ENCOUNTER 2017-08-12 10:12 | Emergency (ER) | payer BC ==
[~2017-08-12] VITALS: Ht 165.1 cm; Wt 59.0 kg
[~2017-08-12 10:12] MED LIST changes: +LAMO200T35 PO; -LAMO200T38 PO
[2017-08-12 10:22] VITALS: TEMP 36.5; Ht 165.1 cm; Wt 59.0 kg
[2017-08-12] MEDS ORDERED: ACETAMINOPHEN 500 MG TAB PO STA (10:40)
[2017-08-12] MEDS ORDERED: LIDODERM (LIDOCAINE) PATCH 5% TD STA (10:40)
[2017-08-12] MEDS ORDERED: DEXAMETHASONE SOD INJ 4 MG/ML 5 ML VIAL IM STA (10:40)
[2017-08-12] MEDS ORDERED: DEXAMETHASONE **PF** INJ 10 MG/ML VIAL IM STA (11:16)
[2017-08-12] MEDS ORDERED: CALCTAB5 PO (11:27)
[2017-08-12] MEDS ORDERED: OMEG10007 PO (11:27)
[2017-08-12] MEDS ORDERED: IBUP-1050 PO (11:27)
[2017-08-12] MEDS ORDERED: CTP/1 PO (11:36)
[2017-08-12] MEDS ORDERED: CYCL10TA6 PO (12:52)
[2017-08-12] MEDS ORDERED: LDDP5 TD (12:52)
--- NOTE | 2017-08-12 12:54 | EMERGENCY ROOM VISIT NOTE ---
History Report prepared by Thong: Johnny Acosta Under the Supervision of: Dr. Victor Manuel Santana M.D. First contact with patient: 10:36 Chief Complaint: BACK PAIN Stated Complaint: MUSCLE SPASMS IN BACK History of Present Illness The patient is a 61 year old female who presents to the Emergency Room with complaints of constant upper back pain beginning last night. She localizes the pain to the area between her shoulder blades. She states that she is able to see her muscles enoch. The patient has a history of similar symptoms ( most recently last year). She rates her pain as an 8/10 in severity. Her pain initially began more to the left side, but has moved more to her right now. The patient has used heating pads, but only applying pressure to the area improves her symptoms. She has noticed that her pain occurs days where she works out. She has had problems with this for the past several years. The patient also complains of nausea. She is on Flexeril as needed. She is on Klonopin three times per day. The patient has a previous history of seizures. She denies chest pain, fevers, chills, cough, or congestion. She was able to walk and drive today. The patient notes that she took supplemental magnesium last night. Source of History: patient Onset: Last night Position: back (upper) Symptom Intensity: 8/10 Timing: constant Modifying Factors (Relieving): other (applying pressure to the area) Associated Symptoms: + nausea, No fevers, No chills, No cough, No chest pain Note: Negative: congestion. Review of Systems See HPI for pertinent positives and negatives. A total of ten systems were reviewed and were otherwise negative. 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 Social History Smoking Status: Former Smoker Alcohol Use: occasionally Marital Status: Housing Status: lives alone Occupation Status: employed Current/Historical Medications Scheduled Cholecalciferol (D 400), 400 UNIT PO QAM Clonazepam (Klonopin), 1 MG PO UD Clonidine Hcl (Catapres), 0.3 MG PO HS Cyclobenzaprine Hcl (Flexeril), 1 TAB PO TID Fish Oil (Troy-3), 1 CAP PO QAM Ibuprofen (Advil), 800 MG PO UD Lamotrigine (Lamictal), 100 MG PO BID Lamotrigine (Lamictal), 25 MG PO QAM Lamotrigine (Lamictal), 50 MG PO HS Multivitamin (Multivitamin), 1 TAB PO QAM Scheduled PRN Lidocaine (Lidocaine), 1 PATCH TD DAILY PRN for Pain Allergies Coded Allergies: Lanolin (Verified Allergy, Unknown, 12/26/16) Latex1 -Allergic Contact Dermititis (Unverified Allergy, Unknown, dry cracked skin, 12/26/16) Molds and Smuts (Unverified Allergy, Unknown, RASH, 12/26/16) Sulfa Drugs (Unverified Allergy, Unknown, swollen lips and tongue, 12/26/16) Sulfamethoxazole w/Trimethoprim (Verified Allergy, Unknown, ., 12/26/16) Amoxicillin (Unverified Adverse Reaction, Unknown, stomach can't tolerate , 12/26/16) Uncoded Allergies: SEASONAL ALLERGIES (Allergy, Intermediate, RUNNY NOSE/ITCHY EYES/HORSE THROAT, 08/12/17) Physical Exam Vital Signs Date Time Temp Pulse Resp B/P (MAP) Pulse Ox O2 Delivery O2 Flow Rate FiO2 08/12/17 13:05 68 16 148/74 96 08/12/17 11:35 62 156/89 98 Room Air 08/12/17 10:22 36.5 72 18 160/95 98 Room Air Physical Exam GENERAL: Awake, alert, uncomfortable but in no distress HENT: Normocephalic, atraumatic. Oropharynx unremarkable. EYES: Normal conjunctiva. Sclera non-icteric. NECK: Supple. No nuchal rigidity. FROM. No JVD. RESPIRATORY: Clear to auscultation. CARDIAC: Regular rate, normal rhythm. Extremities warm and well perfused. Pulses equal. ABDOMEN: Soft, non-distended. No tenderness to palpation. No rebound or guarding. No masses. RECTAL: Deferred. MUSCULOSKELETAL: Chest examination reveals no tenderness. The back is symmetrical on inspection without obvious abnormality. Palpable spasms in thoracic and paraspinal muscles. There is no CVA tenderness to palpation. No joint edema. LOWER EXTREMITIES: Calves are equal size bilaterally and non-tender. No edema. No discoloration. NEURO: Normal sensorium. No sensory or motor deficits noted. 5 out of 5 strength and SILT 4 extremities. SKIN: No rash or jaundice noted. Medical Decision & Procedures Medications Administered Medications (Trade) Dose Ordered Sig/Mary Route Start Time Stop Time Status Last Admin Dose Admin Lidocaine (Lidoderm Patch 5%) 1 patch NOW STAT TD 08/12/17 10:40 08/12/17 10:55 DC 08/12/17 11:35 1 PATCH Acetaminophen (Tylenol Tab) 1,000 mg NOW STAT PO 08/12/17 10:40 08/12/17 10:55 DC 08/12/17 11:34 1,000 MG Dexamethasone Sodium Phosphate (Dexamethasone Inj Pf) 10 mg NOW STAT IM 08/12/17 11:16 08/12/17 11:17 DC 08/12/17 11:34 10 MG ED Course 1038: The patient was evaluated in room C7. A complete history and physical exam was performed. 1255: I reevaluated the patient. Discussed results and discharge instructions: she verbalized understanding and agreement. The patient is ready for discharge. Medical Decision I reviewed the patient's past medical history, medications, and the nursing notes as described above. Differential diagnosis: Etiologies such as musculoskeletal, disc herniation, fracture, aortic disease, metastatic disease, cord compression, discitis, infection, renal colic, gastrointestinal, acute exacerbation of chronic back pain, sciatica, cauda equina, as well as others were entertained. The patient is a 61-year-old woman with a past medical history of chronic back pain/spasms who presents emergency department with the same. On arrival patient is uncomfortable but no acute distress, afebrile stable vital signs. Patient denies any concerning symptoms such as urinary retention or bowel incontinence. On exam the patient is neuro intact with 5 out of 5 strength and silt 4 extremities. On exam the patient has palpable muscle spasm of the thoracic paraspinal muscles. The patient was given acetaminophen, Decadron IM and Lidoderm patch with good effect. That the patient is driving we could not give her a muscle relaxer today. She was given a prescription for Flexeril which had helped her in the past when she was seen in the ED for the same symptoms. Findings and plan for follow-up reviewed with patient. Patient agreeable and d/c'd per discharge instructions. Medication Reconcilliation Current Medication List: was personally reviewed by me Blood Pressure Screening Patient's blood pressure: Elevated blood pressure Blood pressure disposition: Referred to PCP Impression Primary Impression: Spasm of thoracic back muscle Scribe Attestation The scribe's documentation has been prepared under my direction and personally reviewed by me in its entirety. I confirm that the note above accurately reflects all work, treatment, procedures, and medical decision making performed by me. Departure Information Dispostion Home / Self-Care Prescriptions Lidocaine (Lidocaine) 1 Patch Tdsy 1 PATCH TD DAILY Y for Pain, #10 PATCH Prov: Victor Manuel Santana M.D. 08/12/17 Cyclobenzaprine Hcl (FLEXERIL) 10 Mg Tab 1 TAB PO TID for 14 Days, #42 TAB Prov: Victor Manuel Santana M.D. 08/12/17 Referrals No Doctor, Assigned (PCP) Patient Instructions ED Spasm Muscle, [facility] Additional Instructions Please follow up with and establish care with a primary care physician in the next week for re-evaluation. Your symptoms are due to a muscle spasm/strain. Otherwise, your exam did not show signs of an emergent condition at this time. Acetaminophen or ibuprofen for pain as needed. Flexeril for muscle relaxation as needed. Lidoderm patches for additional local pain relief. Heating pad at 20 minute intervals throughout the day for additional muscle relaxation. Drink plenty of fluids to ensure hydration. Return to the emergency department for worsening symptoms as described in the accompanying instructions.
[2017-08-12 13:05] VITALS: BP 148/74; PULSE 68; O2SAT 96
== END 2017-08-12 13:06 | disposition home or self-care (01) ==
LOC: C.EDB 10:13 → C.EDC 13:06
DX: M62.830 Muscle spasm of back (principal); Z87.891 Personal history of nicotine dependence; Z85.42 Personal history of malignant neoplasm of other parts of uterus; Z90.710 Acquired absence of both cervix and uterus; Z88.0 Allergy status to penicillin; Z88.1 Allergy status to other antibiotic agents; Z88.2 Allergy status to sulfonamides; Z91.040 Latex allergy status; Z91.09 Other allergy status, other than to drugs and biological substances

== ENCOUNTER 2023-12-23 16:29 | Inpatient (IN) ==
[2023-12-23 17:16] LABS: Basophils # (auto) 0.02 K/uL (0.00-0.20); Basophils % (auto) 0.2 %; Eosinophils # (auto) 0.02 K/uL (0.00-0.50); Eosinophils % (auto) 0.2 %; Hematocrit (blood only) 35.9 % (37.0-47.0); Hemoglobin 12.6 g/dl (12.0-16.0); Immature Granulocytes # (auto) 0.09 K/uL (0.01-0.20); Immature Granulocytes % (auto) 0.8 %; Lymphocytes # (auto) 2.31 K/uL (1.20-3.40); Lymphocytes % (auto) 20.8 %; Mean Corpuscular Hemoglobin 30.6 pg (25.0-34.0); Mean Corpuscular Hgb Conc 35.1 g/dL (32.0-36.0); Mean Corpuscular Volume 87.1 fL (80.0-100.0); Mean Platelet Volume 10.4 fL (9.4-12.4); Monocytes # (auto) 1.22 K/uL (0.11-0.59); Neutrophils # (auto) 7.47 K/uL (1.40-6.50); Platelet Count 383 K/uL (130-400); RDW Coefficient of Variation 13.8 % (11.5-14.5); RDW Standard Deviation 43.6 fL (36.4-46.3); Red Blood Count 4.12 M/uL (4.20-5.40); White Blood Count 11.13 K/ul (4.8-10.8)
--- NOTE | 2023-12-23 17:23 | Emergency Department Note ---
Impression & Plan Acute UTI, Bipolar disorder, unspecified, Acute renal insufficiency, Elevated LFTs ED Provider Note NAME: MARCO RODRIGUEZ AGE: 68 SEX: F : 1955 ARRIVES VIA: Ambulance INFORMANT: Patient ED PROVIDER(S): Victor Manuel Santana MD CHIEF COMPLAINT: Confusion, referred. PLAN: Disposition: Admit MEDICAL DECISION MAKING: The patient is a pleasant 68-year-old woman with a past medical history of bipolar disorder, generalized anxiety who presents to the emergency department via EMS, referred by her PCP office for evaluation of confusion. Patient reports that she has felt unwell for several days and for the past 2 days has not slept or had anything to eat or drink. She is a poor historian with disorganized thoughts, pressured speech, tangential thinking. She does admit that she has difficulty focusing. She denies cough congestion, chest pain, shortness of breath. On evaluation the patient is anxious pain but no distress, afebrile with blood pressure 170/110s and vital signs otherwise stable. She appears clinically dry. She has difficulty with word finding and forming coherent sentences. She perseverates saying she is "86 years old". She otherwise has no focal extremity weakness and exhibits 5/5 strength and SILT x 4 extremities. She is intact [id number]. EKG without overt acute ischemia. CXR negative for acute cardiopulmonary process per my personal preliminary review/interpretation. WBC 11K with neutrophil predominance with no left shift, nonspecific. Hbg within normal limits. Platelets within normal limits. Chemistry with bicarbonate of 20 and anion gap of 15 consistent with patient's clinically dry appearance with creatinine of 1.7 consistent with patient report of poor oral intake. AST and ALT are elevated at 176 and 65, respectively, nonspecific with total bilirubin alk phos within normal limits. TSH within normal limits. UA is consistent infection with positive nitrites, WBCs, 2+ bacteria. CT of the head CT of the head and neck were performed due to acute change in mental status and aphasia. This was negative for ICH, ischemia or severe occlusion of large vessels. Findings reviewed the patient she was having some improvement in her mentation and ability to have coherent conversation though still with disorganization. She does agree with plan for admission for further management. Case was discussed [place] Melchor, [facility] [place] and Guzman Hogan, [facility] [place], who will evaluate the patient for admission. Triage Nursing notes reviewed and agree them. Prior/external medical records reviewed Vital Signs: reviewed Differential diagnosis: Infection, hypoglycemia, electrolyte abnormalities, overdose, toxicologic, cardiac sources, intracerebral event, neurologic, trauma, as well as other pathologies. ER treatment provided: See below. Diagnostics interpreted by me: ECG: Sinus rhythm first-degree block, 68 bpm, no ectopy, no overt ST elevation or depression, QTc 435 glucose 80. Cardiac Monitoring: An order for continuous cardiac monitoring was placed and demonstrated Sinus rhythm first-degree block, 68 bpm, no ectopy Laboratory studies: See below Imaging studies: See below Consultation(s): Case was discussed with Dr. Melchor, [facility] [place] and Guzman Hogan, [facility], who will evaluate the patient for admission. HPI: The patient is a pleasant 68-year-old woman with a past medical history of bipolar disorder, generalized anxiety who presents to the emergency department via EMS, referred by her PCP office for evaluation of confusion. Patient reports that she has felt unwell for several days and for the past 2 days has not slept or had anything to eat or drink. She is a poor historian with disorganized thoughts, pressured speech, tangential thinking. She does admit that she has difficulty focusing. She denies cough congestion, chest pain, shortness of breath. ROS: See above HPI for pertinent positives & negatives. A total of 10 systems reviewed and were otherwise negative. VITALS:See Below PHYSICAL EXAMINATION: GENERAL: Awake, alert, anxious-appearing, in no distress HENT: Normocephalic, atraumatic. Oropharynx with dry mucous membranes and otherwise unremarkable. EYES: Normal conjunctiva. Sclera non-icteric. EOMI. No nystamgus. PEARRL. NECK: Supple. No nuchal rigidity. FROM. No JVD. RESPIRATORY: Clear to auscultation. CARDIAC: Regular rate, normal rhythm. Extremities warm and well perfused. Pulses equal. ABDOMEN: Soft, non-distended. No tenderness to palpation. No rebound or guarding. No masses. MUSCULOSKELETAL: Chest examination reveals no tenderness. The back is symmetrical on inspection without obvious abnormality. There is no CVA tenderness to palpation. No joint edema. LOWER EXTREMITIES: Calves are equal size bilaterally and non-tender. No edema. No discoloration. NEURO: Difficulty with word finding and forming coherent sentences. She perseverates saying she is "86 years old". She otherwise has no focal extremity weakness and exhibits 5/5 strength and SILT x 4 extremities. She is intact [id number]. SKIN: No rash or jaundice noted. Victor Manuel Santana MD Past Med/Surg History Problem List (Updated 12/24/23 @ 03:47 by Victor Manuel Santana MD) Hypokalemia Elevated LFTs (Acute) MAGALY (acute kidney injury) Bipolar I disorder with howie Acute renal insufficiency (Acute) Acute UTI (Acute) Congestion of upper airway Bipolar disorder, unspecified (Chronic) Generalized anxiety disorder (Chronic) Medical History (Updated 12/24/23 @ 03:47 by Victor Manuel Santana MD) Adenocarcinoma of uterus Surgical History History of breast surgery puncture aspiration of cyst History of repair of rotator cuff History of hysterectomy History of tooth extraction History of shoulder surgery Family History Aunt Colorectal cancer Uncle Colorectal cancer Grandmother Depression Unknown Lung cancer Colonic polyp Mother Alcohol abuse Anxiety Depression Sister Alcohol abuse Anxiety Depression Denies family history of Ovarian cancer Prostate cancer Myocardial infarction Breast cancer Social History Smoking Status: Former smoker Age Started Using Tobacco: 18; Age Quit Using Tobacco: 32; Do You Dip or Chew Tobacco: No; Hx Alcohol Use: Yes Alcohol type: beer Hx Substance Use: No Preferred Language: Nepali Communication Ability: Effective Visual Impairment: No Limitations Hearing Ability: Normal Residential Sales Required: No Beliefs That Will Affect Care: None marital status: / Current Living Situation: Alone current occupational status: retired Feels Safe at Home: Yes Safety Concerns: Feels Safe At This Time Childhood Exposure to Second-Hand Smoke: Yes Dental Care, Regularly: Yes Physical Activity Frequency: 3-4 Times per Week Seatbelt Use: always Sunscreen Use: Yes Assistive Devices: None Allergies Allergies Allergy/AdvReac Type Severity Reaction Status Date / Time Bactrim Allergy Unknown . Verified 12/26/16 14:20 lanolin Allergy Unknown Unknown Verified 08/07/21 12:47 latex Allergy Unknown dry Unverified 08/07/21 12:47 cracked skin mold Allergy Unknown RASH Unverified 08/07/21 12:47 Sulfa (Sulfonamide Allergy Unknown swollen Unverified 08/07/21 12:47 Antibiotics) lips and tongue sulfamethoxazole Allergy Unknown . Verified 08/07/21 12:47 trimethoprim Allergy Unknown . Verified 08/07/21 12:47 amoxicillin AdvReac Unknown stomach Unverified 08/07/21 12:47 can't tolerate SEASONAL ALLERGIES Allergy Intermediate RUNNY Uncoded 08/07/21 12:47 NOSE/ITCHY EYES/HORSE THROAT Home Meds Home Medications Medication Instructions Recorded Confirmed ascorbic acid (vitamin C) 500 mg 500 mg PO QAM 12/07/18 12/23/23 tablet calcium cit 250 mg-mag 40 mg-D3 1 tab PO DAILY 08/07/21 12/23/23 125 unit-zinc 3.75 mg-marble coper-andre tablet (Calcium Citrate Plus) lamotrigine 25 mg tablet 25 mg PO DAILY 12/23/23 12/23/23 Previous Rx's Medication Instructions Recorded clonazepam 0.5 mg tablet 0.5 mg PO TID #14 tabs 08/07/21 Results & Data (ED) Vital Signs Vital Signs - 24 hr 12/23/23 16:37 12/23/23 16:44 12/23/23 16:45 Temperature 37 C Temperature Source Oral Oral Pulse Rate Pulse Rate [Apical] 80 Pulse Rhythm [Apical] Pulse Strength Normal Pulse Strength [Apical] Normal Respiratory Rate 20 19 Respiratory Effort / Characteristics Non-Labored Spontaneous Non-Labored Spontaneous Respiratory Depth Normal Normal Respiratory Pattern Regular Regular Blood Pressure 175/116 H Blood Pressure [Left Arm] Blood Pressure Mean 135 Blood Pressure Mean [Left Arm] Pulse Oximetry 99 99 96 Oxygen Delivery Method Room Air Room Air Room Air Sepsis Recent Fever Within 48 Hours No Sepsis New/Unexplained Change in Mental Status No Sepsis Action Taken by Nursing No Action Required 12/23/23 16:58 12/23/23 17:45 12/23/23 19:07 Temperature Temperature Source Pulse Rate 88 Pulse Rate [Apical] 76 67 Pulse Rhythm [Apical] Regular Pulse Strength Pulse Strength [Apical] Normal Respiratory Rate 19 18 Respiratory Effort / Characteristics Non-Labored Spontaneous Non-Labored Spontaneous Respiratory Depth Normal Normal Respiratory Pattern Regular Regular Blood Pressure Blood Pressure [Left Arm] 166/102 H 160/112 H Blood Pressure Mean Blood Pressure Mean [Left Arm] 123 128 Pulse Oximetry 99 99 Oxygen Delivery Method Room Air Room Air Sepsis Recent Fever Within 48 Hours Sepsis New/Unexplained Change in Mental Status Sepsis Action Taken by Nursing Laboratory Data Attestation: I reviewed the patient's lab results. 12/23/23 16:40 12/23/23 16:40 Lab Results 12/23/23 12/23/23 12/23/23 Range/Units 16:40 17:45 19:31 WBC 11.13 H (4.8-10.8) K/ul RBC 4.12 L (4.20-5.40) M/uL Hgb 12.6 (12.0-16.0) g/dl Hct 35.9 L (37.0-47.0) % MCV 87.1 (80.0-100.0) fL MCH 30.6 (25.0-34.0) pg MCHC 35.1 (32.0-36.0) g/dL RDW Std Deviation 43.6 (36.4-46.3) fL RDW Coeff of Aline 13.8 (11.5-14.5) % Plt Count 383 (130-400) K/uL MPV 10.4 (9.4-12.4) fL Immature Gran % (Auto) 0.8 % Neut % (Auto) 67.0 % Lymph % (Auto) 20.8 % Brantley % (Auto) 11.0 % Eos % (Auto) 0.2 % Baso % (Auto) 0.2 % Neut # (Auto) 7.47 H (1.40-6.50) K/uL Lymph # (Auto) 2.31 (1.20-3.40) K/uL Brantley # (Auto) 1.22 H (0.11-0.59) K/uL Eos # (Auto) 0.02 (0.00-0.50) K/uL Baso # (Auto) 0.02 (0.00-0.20) K/uL Immature Gran # (Auto) 0.09 (0.01-0.20) K/uL PT 11.6 (9.0-12.0) Seconds INR 1.1 (0.9-1.1) APTT 25 (21-31) Seconds PTT Ratio 0.9 Sodium 134 L (136-145) mmol/L Potassium 3.4 L (3.5-5.1) mmol/L Chloride 99 (98-107) mmol/L Carbon Dioxide 20 L (21-32) mmol/L Anion Gap 15 H (3-11) BUN 22 (6-23) mg/dl Creatinine 1.72 H (0.6-1.2) mg/dl Est Cr Clr Drug Dosing 28.2 ml/min Est GFR ( Amer) 34.8 ml/min Est GFR (Non-Af Amer) 30.0 ml/min BUN/Creatinine Ratio 12.8 (10-20) Glucose 108 H (70-99(Fasting)) mg/dl Calcium 9.7 (8.6-10.3) mg/dl Phosphorus 4.2 (2.5-4.9) mg/dl Magnesium 2.1 (1.7-2.4) mg/dl Total Bilirubin 0.7 (0.2-1.0) mg/dl AST 176 H (13-39) U/L ALT 65 H (7-52) U/L Alkaline Phosphatase 49 (34-104) U/L Total Creatine Kinase 9533 H (26-192) U/L Total Protein 8.0 (6.0-8.3) gm/dl Albumin 5.0 (3.4-5.0) gm/dl Globulin 3.0 (2.5-4.0) gm/dl Albumin/Globulin Ratio 1.7 (0.9-2) TSH 1.492 (0.300-4.500) uIu/ml Urine Color Yellow Urine Appearance Cloudy A (Clear) Urine pH 5.0 (4.5-7.5) Ur Specific [place] 1.020 (1.000-1.030) Urine Protein 1+ H (Negative) Urine Glucose (UA) Negative (Negative) Urine Ketones 1+ H (Negative) Urine Blood 1+ H (Negative) Urine Nitrite Positive A (Negative) Urine Bilirubin Negative (Negative) Urine Urobilinogen Negative (Negative) Ur Leukocyte Esterase 3+ H (Negative) Urine WBC (Auto) 21-50 H (0-5) /hpf Urine RBC (Auto) 6-10 H (0-2) /hpf U Hyaline Cast (Auto) >20 H (0-2) /lpf U Epithel Cells (Auto) 0-2 (0-2) /hpf Urine Bacteria (Auto) 2+ H (None Seen) Urine Opiates Screen Neg (Neg) Ur Methadone, Qual Neg (Neg) Urine Fentanyl Screen Neg (Neg) Urine Barbiturates Neg (Neg) Ur Phencyclidine (PCP) Neg (Neg) U Amphetamin/Meth Scrn Neg (Neg) MDMA (Ecstasy) Screen Neg (Neg) U Benzodiazepines Scrn Neg (Neg) Ur Cocaine Metabolite Neg (Neg) U Marijuana (THC) Screen Pos H (Neg) Ethyl Alcohol mg/dL < 10.0 (<10.0) mg/dl SARS-CoV-2, RNA, NAAT NEGATIVE (NEGATIVE) Administered Medications Discontinued Medications Sodium Chloride (Nss) 1,000 mls @ 999 mls/hr IV .Q1H1M ONE Stop: 12/23/23 18:08 Last Infusion: 12/23/23 19:07 Dose: Infused Documented By: Admin: 12/23/23 17:44 Dose: 999 mls/hr Documented By: RENETTA Ceftriaxone Sodium (Rocephin) 2,000 mg in 50 mls @ 100 mls/hr IV NOW STA Stop: 12/23/23 20:06 Last Infusion: 12/23/23 20:25 Dose: Infused Documented By: Admin: 12/23/23 19:46 Dose: 100 mls/hr Documented By: RENETTA Lactated Ringer's (Lr) 1,000 mls @ 999 mls/hr IV .Q1H1M ONE Stop: 12/23/23 21:16 Last Infusion: 12/23/23 22:01 Dose: Infused Documented By: Admin: 12/23/23 20:26 Dose: 999 mls/hr Documented By: RENETTA Ioversol (Optiray 320 125ml) 116 ml IV ONCE ONE Stop: 12/23/23 17:26 Last Admin: 12/23/23 17:27 Dose: 116 ml Documented By: EDOUARD Olanzapine (Olanzapine 10 Mg Tab) 10 mg PO NOW STA Stop: 12/23/23 20:20 Last Admin: 12/23/23 20:31 Dose: 10 mg Documented By: RENETTA Potassium Chloride (Potassium Chloride Crtab 20 Meq Tabcr) 40 meq PO NOW STA Stop: 12/23/23 20:45 Last Admin: 12/23/23 20:57 Dose: 40 meq Documented By: RENETTA Imaging Data Radiologist's Impression: Chest X-Ray 12/23/23 17:01 XR chest 1V not portable HISTORY: 68 years-old Female illness COMPARISON: Chest radiograph 06/18/2022 TECHNIQUE: AP view of the chest FINDINGS: Cardiac silhouette is unchanged. No pneumothorax, pleural effusion or airspace consolidation. Bones appear grossly intact. IMPRESSION: No acute process. ACT 112: Negative or not required by law. The above report was generated using voice recognition software. It may contain grammatical, syntax or spelling errors. Electronically signed by: Zoran Delgado M.D. 12/23/2023 5:[address] 12/23/23 17:02 CT angio head w con, CT angio neck with con, CT head/brain wo con CLINICAL HISTORY: 68 years-old Female with acute confusion. Acutely altered mental status COMPARISON STUDY: None TECHNIQUE: Unenhanced axial CT scan of the brain is performed. Subsequently, following the IV administration of 116 cc of Optiray, CT angiogram of the head and neck was performed from the aortic arch to the skull apex. Images are reviewed in the axial, sagittal, and coronal planes. 3-D MIPS images are created and assessed. IV contrast was administered without complication. All measurements were obtained according to NASCET criteria. A dose lowering technique was utilized adhering to the principles of ALARA. CT DOSE: 1044.42 mGy.cm FINDINGS: CT BRAIN: There is no acute intracranial hemorrhage, midline shift, hydrocephalus, intracranial mass, territorial ischemia or abnormal extra-axial collections. No abnormal intra-axial or extra-axial enhancement. Mild involutional changes. Mastoid air cells and middle ear cavities are clear. No calvarial fracture. 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 Paranasal sinuses are clear. CT ANGIOGRAM OF THE HEAD AND NECK: Three-vessel morphology of the thoracic aortic arch. There is patency of the innominate and imaged subclavian arteries. Common carotid arteries are patent. There is mild atherosclerosis of the carotid bulbs without significant stenosis. The bilateral anterior and middle cerebral arteries are also patent. Mid to basilar artery. origin of the posterior cerebral arteries. There is no aneurysm, high-grade stenosis, or proximal branch occlusion identified. Patent codominant vertebral arteries. Dural sinuses appear patent. Unremarkable soft tissues. No pneumothorax. Degenerative changes of the cervical spine. IMPRESSION: 1. No acute intracranial abnormality. 2. Unremarkable CTA of the head and neck. ACT 112: Negative or not required by law. The above report was generated using voice recognition software. It may contain grammatical, syntax or spelling errors. Electronically signed by: Zoran Delgado M.D. 12/23/2023 6:38 PM Head CTA 12/23/23 17:22 CT angio head w con, CT angio neck with con, CT head/brain wo con CLINICAL HISTORY: 68 years-old Female with acute confusion. Acutely altered mental status COMPARISON STUDY: None TECHNIQUE: Unenhanced axial CT scan of the brain is performed. Subsequently, following the IV administration of 116 cc of Optiray, CT angiogram of the head and neck was performed from the aortic arch to the skull apex. Images are reviewed in the axial, sagittal, and coronal planes. 3-D MIPS images are created and assessed. IV contrast was administered without complication. All measurements were obtained according to NASCET criteria. A dose lowering technique was utilized adhering to the principles of ALARA. CT DOSE: 1044.42 mGy.cm FINDINGS: CT BRAIN: There is no acute intracranial hemorrhage, midline shift, hydrocephalus, intracranial mass, territorial ischemia or abnormal extra-axial collections. No abnormal intra-axial or extra-axial enhancement. Mild involutional changes. Mastoid air cells and middle ear cavities are clear. No calvarial fracture. 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 Paranasal sinuses are clear. CT ANGIOGRAM OF THE HEAD AND NECK: Three-vessel morphology of the thoracic aortic arch. There is patency of the innominate and imaged subclavian arteries. Common carotid arteries are patent. There is mild atherosclerosis of the carotid bulbs without significant stenosis. The bilateral anterior and middle cerebral arteries are also patent. Mid to basilar artery. origin of the posterior cerebral arteries. There is no aneurysm, high-grade stenosis, or proximal branch occlusion identified. Patent codominant vertebral arteries. Dural sinuses appear patent. Unremarkable soft tissues. No pneumothorax. Degenerative changes of the cervical spine. IMPRESSION: 1. No acute intracranial abnormality. 2. Unremarkable CTA of the head and neck. ACT 112: Negative or not required by law. The above report was generated using voice recognition software. It may contain grammatical, syntax or spelling errors. Electronically signed by: Zoran Delgado M.D. 12/23/2023 6:38 PM Neck CTA 12/23/23 17:22 CT angio head w con, CT angio neck with con, CT head/brain wo con CLINICAL HISTORY: 68 years-old Female with acute confusion. Acutely altered mental status COMPARISON STUDY: None TECHNIQUE: Unenhanced axial CT scan of the brain is performed. Subsequently, following the IV administration of 116 cc of Optiray, CT angiogram of the head and neck was performed from the aortic arch to the skull apex. Images are reviewed in the axial, sagittal, and coronal planes. 3-D MIPS images are created and assessed. IV contrast was administered without complication. All measurements were obtained according to NASCET criteria. A dose lowering technique was utilized adhering to the principles of ALARA. CT DOSE: 1044.42 mGy.cm FINDINGS: CT BRAIN: There is no acute intracranial hemorrhage, midline shift, hydrocephalus, intracranial mass, territorial ischemia or abnormal extra-axial collections. No abnormal intra-axial or extra-axial enhancement. Mild involutional changes. Mastoid air cells and middle ear cavities are clear. No calvarial fracture. 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 Paranasal sinuses are clear. CT ANGIOGRAM OF THE HEAD AND NECK: Three-vessel morphology of the thoracic aortic arch. There is patency of the innominate and imaged subclavian arteries. Common carotid arteries are patent. There is mild atherosclerosis of the carotid bulbs without significant stenosis. The bilateral anterior and middle cerebral arteries are also patent. Mid to basilar artery. origin of the posterior cerebral arteries. There is no aneurysm, high-grade stenosis, or proximal branch occlusion identified. Patent codominant vertebral arteries. Dural sinuses appear patent. Unremarkable soft tissues. No pneumothorax. Degenerative changes of the cervical spine. IMPRESSION: 1. No acute intracranial abnormality. 2. Unremarkable CTA of the head and neck. ACT 112: Negative or not required by law. The above report was generated using voice recognition software. It may contain grammatical, syntax or spelling errors. Electronically signed by: Zoran Delgado M.D. 12/23/2023 6:38 PM Discharge Plan Visit Data Chief Complaint: Illness Stated Complaint: ILLNESS ED Provider: Victor Manuel Santana Discharge Problem: Acute UTI, Bipolar disorder, unspecified, Acute renal insufficiency, Elevated LFTs Patient Disposition: Admitted As Inpatient Discharge Instructions Interventions: ED Discharge Assessment Last Done: 12/23/23 21:24 Discharge Problem: Bipolar disorder, unspecified Qualifiers: Active/Remission status: currently active Current bipolar episode type: manic C urrent episode severity: unspecified Qualified Code(s): F31.10 - Bipolar disorder, current episode manic without psychotic features, unspecified
[2023-12-23] MEDS: OPTIRAY 320 125ml IV ONE (17:27)
[2023-12-23 17:32] LABS: Albumin Globulin Ratio 1.7 (0.9-2); BUN Creatinine Ratio 12.8 (10-20); Bilirubin,Total 0.7 mg/dl (0.2-1.0); Calcium 9.7 mg/dl (8.6-10.3); Creatinine Clr Calc Pharmacy 28.2 ml/min; Est GFR (African American) 34.8 ml/min; Magnesium 2.1 mg/dl (1.7-2.4); Phosphorus 4.2 mg/dl (2.5-4.9); Potassium 3.4 mmol/L (3.5-5.1)
[2023-12-23] MEDS: SODIUM CHLORIDE 0.9% 1,000 ML IV ONE (17:44)
[2023-12-23 17:46] LABS: Thyroid Stimulating Hormone 1.492 uIu/ml (0.300-4.500)
[2023-12-23 17:54] LABS: INR 1.1 (0.9-1.1); Partial Thromboplastin Ratio 0.9; Partial Thromboplastin Time 25 Seconds (21-31); Prothrombin Time 11.6 Seconds (9.0-12.0)
--- NOTE | 2023-12-23 17:56 | XRay Report ---
XR chest 1V not portable HISTORY: 68 years-old Female illness COMPARISON: Chest radiograph 06/18/2022 TECHNIQUE: AP view of the chest FINDINGS: Cardiac silhouette is unchanged. No pneumothorax, pleural effusion or airspace consolidation. Bones a ppear grossly intact. IMPRESSION: No acute process. ACT 112: Negative or not required by law. The above report was generated using voice recognition software. It may contain grammatical, syntax o r spelling errors. Electronically signed by: Zoran Delgado M.D. 12/23/2023 5:54 PM
[2023-12-23 18:25] LABS: Appearance Urine Cloudy (Clear); Bacteria Urine Automated 2+ (None Seen); Bilirubin Urine Negative (Negative); Blood Urine 1+ (Negative); Cast Urine Automated >20 /lpf (0-2); Color Urine Yellow; Epithelial Cell Urine Auto 0-2 /hpf (0-2); Glucose Urine UA Negative (Negative); Ketones Urine 1+ (Negative); Leukocyte Esterase Urine 3+ (Negative); Nitrite Urine Positive (Negative); Protein Urine 1+ (Negative); Urobilinogen Urine Negative (Negative); WBC Urine Automated 21-50 /hpf (0-5)
--- NOTE | 2023-12-23 18:41 | CT Scan Report ---
CT angio head w con, CT angio neck with con, CT head/brain wo con CLINICAL HISTORY: 68 years-old Female with acute confusion. Acutely altered mental status COMPARISON STUDY: None TECHNIQUE: Unenhanced axial CT scan of the brain is performed. Subsequently, following the IV adminis tration of 116 cc of Optiray, CT angiogram of the head and neck was performed from the aortic arch to the skull apex. Images are reviewed in the axial, sagittal, and coronal planes. 3-D MIPS images are created and assessed. IV contrast was administered without complication. All measurements were obtain ed according to NASCET criteria. A dose lowering technique was utilized adhering to the principles of ALARA. CT DOSE: 1044.42 mGy.cm FINDINGS: CT BRAIN: There is no acute intracranial hemorrhage, midline shift, hydrocephalus, intracranial mass, territori al ischemia or abnormal extra-axial collections. No abnormal intra-axial or extra-axial enhancement. Mild involutional changes. Mastoid air cells and middle ear cavities are clear. No calvarial fractur e. 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 Paranasal sinuses are clear. CT ANGIOGRAM OF THE HEAD AND NECK: Three-vessel morphology of the thoracic aortic arch. There is patency of the innominate and imaged drake bclavian arteries. Common carotid arteries are patent. There is mild atherosclerosis of the carotid b ulbs without significant stenosis. The bilateral anterior and middle cerebral arteries are also paten t. Mid to basilar artery. origin of the posterior cerebral arteries. There is no aneurysm, high -grade stenosis, or proximal branch occlusion identified. Patent codominant vertebral arteries. Dural sinuses appear patent. Unremarkable soft tissues. No pneumothorax. Degenerative changes of the cervical spine. IMPRESSION: 1. No acute intracranial abnormality. 2. Unremarkable CTA of the head and neck. ACT 112: Negative or not required by law. The above report was generated using voice recognition software. It may contain grammatical, syntax o r spelling errors. Electronically signed by: Zoran Delgado M.D. 12/23/2023 6:38 PM
[2023-12-23 19:02] LABS: Amphetamines+Metham, Urine Neg (Neg); Barbiturates, Urine Neg (Neg); Benzodiazepine, Urine Neg (Neg); Cocaine, Urine Neg (Neg); Fentanyl, Urine Neg (Neg); MDMA (Ecstacy), Urine Neg (Neg); Marijuana, Urine Pos (Neg); Methadone, Urine Neg (Neg); Opiate, Urine Neg (Neg); Phencyclidine, Urine Neg (Neg)
[2023-12-23] MEDS: cefTRIAXone SODIUM 2,000 MG/50 ML BAG IV STA (19:46)
--- NOTE | 2023-12-23 19:56 | History & Physical Report ---
Date of Service December 23, 2023 Assessment & Plan (1) Bipolar I disorder with howie: Plan: Admit to med telemetry Currently stable and nontoxic-appearing but in acute manic state Suspect that patient's UTI is contributing to howie and either cause her to forget to take her normal medications or stop taking her normal medications when her howie started Urine drug screen is positive for THC, unsure of exact time of her last use AST/ALT ratio is currently 2.7 increasing suspicion for possible alcohol use, patient denies recent alcohol use with current alcohol level negative At this time we will give 10 mg p.o. Zyprexa now to treat her acute manic ep isode and assist with sleep Will plan to resume normal dose of Lamictal tomorrow morning Psychiatry consult has been placed to assist with ongoing treatment moving forward, unsure if patient will need inpatient psychiatric admission after she is stable from her UTI and MAGALY Regular diet Bilateral SCDs for DVT prophylaxis AM CBC, CMP, mag, PT/INR (2) Acute UTI: Plan: UA is consistent with acute UTI Patient had been noting increased urinary frequency and dysuria since 12/18/2023 No previous history of resistant organisms in our system Status post 1 dose of ceftriaxone in the ED, will continue with ceftriaxone for now Follow urine culture (3) MAGALY (acute kidney injury): Plan: Creatinine elevated at 1.72 today, baseline is near 1.0 Likely prerenal in nature due to very poor oral intake during her acute manic episode Hold nephrotoxic agents at this time Continue IV hydration and allow her to eat/drink Monitor a.m. renal function electrolytes (4) Elevated LFTs: Plan: AST of 176 with ALT of 65 Total bili and alk phos are within normal limits AST/ALT ratio is currently 2.7 raising suspicion for possible recent alcohol consumption, alcohol level at the time of admission was negative Could possibly due to severe dehydration lack of p.o. intake with current manic episode No abdominal pain or jaundice Will obtain acetaminophen level now Continue supportive care for now, if not improving repeat a.m. labs and continue workup (5) Hypokalemia: Plan: Potassium at 3.4, mag is stable at 2.1 Likely due to poor oral intake Will give 40 mEq p.o. KCl Continue to monitor on telemetry and follow a.m. renal function electrolytes Plan The patient was discussed with Dr. Melchor at the time of the admission History of Present Illness Chief Complaint: Dehydration, strokelike symptoms Primary Care Provider: NO PCP Piero is a 68-year-old female with a past medical history significant for bipolar disorder, generalized anxiety disorder who presented to the [facility] ED via EMS on 12/23/2023 with multiple complaints including poor sleep, dehydration, and confusion. On arrival to the ED the patient was noted to be speaking with tangential and pressured speech and not making much sense. She was initially noted be hypertensive on arrival at 175/116 but otherwise stable. Labs were significant for a leukocytosis of 11 with neutrophil predominance of 7, creatinine of 1.72 (baseline is near 1.0), anion gap of 15 with bicarb of 20, potassium 3.4, ALT of 65, a AST of 176, UA with cloudy appearance, 1+ protein, 1+ ketones, 1+ blood, nitrite positive, 3+ leukocyte esterase, 2150 WBC, 2+ bacteria, and no epithelial cells, with Urine drug screen positive for THC and medical alcohol level currently in process. CT head without contrast, CTA of the head and neck were read as unremarkable. Prior to admission the patient was given 1 L normal saline and a dose of ceftriaxone. At the time of exam the patient was sitting up in bed appears extremely alert. She is speaking with pressured speech often tangential causing her to lose her concentration. Due to her acute howie history is difficult to obtain but it appears that she started to develop UTI symptoms on 12/18/2023. Unsure when her last dose of Lamictal was but she confirmed that she has definitely missed doses since 12/17. Patient is unsure if she has slept since the start of her UTI symptoms and confirms that she has had very little to eat or drink. States that she called her neighbor this morning around 5 AM and they came over to see her and were concerned she was not acting herself. The patient confirms that she knows she is not her bed Mental state feels she is manic. States that she had a scheduled appointment today at 2:30 PM with her psychiatrist, states that when she started talking to him on the phone he became concerned and recommended she be evaluated by EMS. States that she lives by herself and does not have any pets. When asked, she denies current suicidal homicidal ideations, hallucinations. She is in agreement with being admitted for treatment of her UTI with dehydration but also to help stabilize her current mental state. States that she currently cannot remember the pass code to her phone which is causing her some distress. When asked, she denies any recent alcohol or tobacco use. When initially asked about any marijuana use. However she then states that she used some marijuana a month or so ago when she was visiting with friends in [place]. Patient then went on a tangent explaining that she is currently living [facility] [address] [facility] but [facility]. Please refer to Dr. Melchor's attestation for any changes to treatment plan Allergies Allergy/AdvReac Type Severity Reaction Status Date / Time Bactrim Allergy Unknown . Verified 12/26/16 14:20 lanolin Allergy Unknown Unknown Verified 08/07/21 12:47 latex Allergy Unknown dry Unverified 08/07/21 12:47 cracked skin mold Allergy Unknown RASH Unverified 08/07/21 12:47 Sulfa (Sulfonamide Allergy Unknown swollen Unverified 08/07/21 12:47 Antibiotics) lips and tongue sulfamethoxazole Allergy Unknown . Verified 08/07/21 12:47 trimethoprim Allergy Unknown . Verified 08/07/21 12:47 amoxicillin AdvReac Unknown stomach Unverified 08/07/21 12:47 can't tolerate SEASONAL ALLERGIES Allergy Intermediate RUNNY Uncoded 08/07/21 12:47 NOSE/ITCHY EYES/HORSE THROAT Home Medications Medication Instructions Recorded Confirmed Type ascorbic acid (vitamin C) 500 mg 500 mg PO QAM 12/07/18 12/23/23 History tablet calcium cit 250 mg-mag 40 mg-D3 1 tab PO DAILY 08/07/21 12/23/23 History 125 unit-zinc 3.75 mg-helicopter engineer-andre tablet (Calcium Citrate Plus) clonazepam 0.5 mg tablet 0.5 mg PO TID #14 tabs 08/07/21 12/23/23 Rx lamotrigine 25 mg tablet 25 mg PO DAILY 12/23/23 12/23/23 History Past Med/Surg History Problem List (Updated 12/23/23 @ 23:44 by Background Daemherbert) Hypokalemia Elevated LFTs MAGALY (acute kidney injury) Bipolar I disorder with howie Acute renal insufficiency (Acute) Acute UTI (Acute) Congestion of upper airway Bipolar disorder, unspecified (Chronic) Generalized anxiety disorder (Chronic) Medical History (Updated 12/23/23 @ 23:44 by Background Damatthew) Adenocarcinoma of uterus Surgical History History of breast surgery puncture aspiration of cyst History of repair of rotator cuff History of hysterectomy History of tooth extraction History of shoulder surgery Family History Aunt Colorectal cancer Uncle Colorectal cancer Grandmother Depression Unknown Lung cancer Colonic polyp Mother Alcohol abuse Anxiety Depression Sister Alcohol abuse Anxiety Depression Denies family history of Ovarian cancer Prostate cancer Myocardial infarction Breast cancer Social History Smoking Status: Unknown if ever smoked Age Started Using Tobacco: 18; Age Quit Using Tobacco: 32; Do You Dip or Chew Tobacco: No; Hx Alcohol Use: Yes Hx Substance Use: No Preferred Language: Slovenian Visual Impairment: No Limitations Hearing Ability: Normal marital status: / Current Living Situation: Alone current occupational status: retired Feels Safe at Home: Yes Childhood Exposure to Second-Hand Smoke: Yes Dental Care, Regularly: Yes Physical Activity Frequency: 3-4 Times per Week Seatbelt Use: always Sunscreen Use: Yes Physical Exam Physical Exam: Physical Exam: General: Currently in a manic episode but no acute distress, stated age, Nontoxic-appearing HEENT: Normocephalic, atraumatic, no scleral icterus, pupils around round, symmetrical, and reactive to light, Bilateral scleral erythema, Dry mucus membranes, trachea midline, no thyromegaly Chest/Pulm: No respiratory distress, symmetrical chest expansion, clear breath sounds throughout Cardiac: RRR, no murmurs noted Abdomen: Negative for ascites and bruising, normoactive bowel sounds, soft, non-tender to palpation throughout Musculoskeletal: Symmetrical and without signs of acute trauma, upper and lower extremities with full ROM, no atrophy, spasticity, or flaccidity Extremities: Radial, dorsalis pedis, and posterior tibial pulses are intact and symmetrical, no edema noted in the BL LE's Skin: Warm, dry, no rashes , lesions, or scars noted Neuro: Alert and oriented to person, place, Will frequently confuse the month and year, no focal defects, no tremors noted Psych: Patient currently with pressured and tangential speech, not actively suicidal or homicidal, flight of ideas and will quickly change the subject of her conversation, no acute hallucinations, does have some insight into the fact that she is not her baseline mental status Results & Data Results & Data Vital Signs (Past 12 Hours) Vital Signs Temp Pulse Pulse Resp BP BP Pulse Ox 12/23/23 19:07 67 18 160/112 H 99 12/23/23 17:45 76 19 166/102 H 99 12/23/23 16:58 88 12/23/23 16:45 96 12/23/23 16:44 37 C 80 19 99 12/23/23 16:37 20 175/116 H 99 O2 Del Method 12/23/23 19:07 Room Air 12/23/23 17:45 Room Air 12/23/23 16:58 12/23/23 16:45 Room Air 12/23/23 16:44 Room Air 12/23/23 16:37 Room Air Laboratory Results Abnormal lab results 12/23/23 12/23/23 Range/Units 16:40 17:45 WBC 11.13 H (4.8-10.8) K/ul RBC 4.12 L (4.20-5.40) M/uL Hct 35.9 L (37.0-47.0) % Neut # (Auto) 7.47 H (1.40-6.50) K/uL Imperial # (Auto) 1.22 H (0.11-0.59) K/uL Sodium 134 L (136-145) mmol/L Potassium 3.4 L (3.5-5.1) mmol/L Carbon Dioxide 20 L (21-32) mmol/L Anion Gap 15 H (3-11) Creatinine 1.72 H (0.6-1.2) mg/dl Glucose 108 H (70-99(Fasting)) mg/dl AST 176 H (13-39) U/L ALT 65 H (7-52) U/L Urine Appearance Cloudy A (Clear) Urine Protein 1+ H (Negative) Urine Ketones 1+ H (Negative) Urine Blood 1+ H (Negative) Urine Nitrite Positive A (Negative) Ur Leukocyte Esterase 3+ H (Negative) Urine WBC (Auto) 21-50 H (0-5) /hpf Urine RBC (Auto) 6-10 H (0-2) /hpf U Hyaline Cast (Auto) >20 H (0-2) /lpf Urine Bacteria (Auto) 2+ H (None Seen) U Marijuana (THC) Screen Pos H (Neg) Diagnostic Findings Chest X-Ray 12/23/23 17:01 XR chest 1V not portable HISTORY: 68 years-old Female illness COMPARISON: Chest radiograph 06/18/2022 TECHNIQUE: AP view of the chest FINDINGS: Cardiac silhouette is unchanged. No pneumothorax, pleural effusion or airspace consolidation. Bones appear grossly intact. IMPRESSION: No acute process. ACT 112: Negative or not required by law. The above report was generated using voice recognition software. It may contain grammatical, syntax or spelling errors. Electronically signed by: Zoran Delgado M.D. 12/23/2023 5:[address] 12/23/23 17:02 CT angio head w con, CT angio neck with con, CT head/brain wo con CLINICAL HISTORY: 68 years-old Female with acute confusion. Acutely altered mental status COMPARISON STUDY: None TECHNIQUE: Unenhanced axial CT scan of the brain is performed. Subsequently, fol lowing the IV administration of 116 cc of Optiray, CT angiogram of the head and neck was performed from the aortic arch to the skull apex. Images are reviewed in the axial, sagittal, and coronal planes. 3-D MIPS images are created and assessed. IV contrast was administered without complication. All measurements were obtained according to NASCET criteria. A dose lowering technique was utilized adhering to the principles of ALARA. CT DOSE: 1044.42 mGy.cm FINDINGS: CT BRAIN: There is no acute intracranial hemorrhage, midline shift, hydrocephalus, intracranial mass, territorial ischemia or abnormal extra-axial collections. No abnormal intra-axial or extra-axial enhancement. Mild involutional changes. Mastoid air cells and middle ear cavities are clear. No calvarial fracture. 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 Paranasal sinuses are clear. CT ANGIOGRAM OF THE HEAD AND NECK: Three-vessel morphology of the thoracic aortic arch. There is patency of the innominate and imaged subclavian arteries. Common carotid arteries are patent. There is mild atherosclerosis of the carotid bulbs without significant stenosis. The bilateral anterior and middle cerebral arteries are also patent. Mid to basilar artery. origin of the posterior cerebral arteries. There is no aneurysm, high-grade stenosis, or proximal branch occlusion identified. Patent codominant vertebral arteries. Dural sinuses appear patent. Unremarkable soft tissues. No pneumothorax. Degenerative changes of the cervical spine. IMPRESSION: 1. No acute intracranial abnormality. 2. Unremarkable CTA of the head and neck. ACT 112: Negative or not required by law. The above report was generated using voice recognition software. It may contain grammatical, syntax or spelling errors. Electronically signed by: Zoran Delgado M.D. 12/23/2023 6:38 PM Head CTA 12/23/23 17:22 CT angio head w con, CT angio neck with con, CT head/brain wo con CLINICAL HISTORY: 68 years-old Female with acute confusion. Acutely altered mental status COMPARISON STUDY: None TECHNIQUE: Unenhanced axial CT scan of the brain is performed. Subsequently, following the IV administration of 116 cc of Optiray, CT angiogram of the head and neck was performed from the aortic arch to the skull apex. Images are reviewed in the axial, sagittal, and coronal planes. 3-D MIPS images are created and assessed. IV contrast was administered without complication. All measurements were obtained according to NASCET criteria. A dose lowering technique was utilized adhering to the principles of ALARA. CT DOSE: 1044.42 mGy.cm FINDINGS: CT BRAIN: There is no acute intracranial hemorrhage, midline shift, hydrocephalus, intracranial mass, territorial ischemia or abnormal extra-axial collections. No abnormal intra-axial or extra-axial enhancement. Mild involutional changes. Mastoid air cells and middle ear cavities are clear. No calvarial fracture. 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 Paranasal sinuses are clear. CT ANGIOGRAM OF THE HEAD AND NECK: Three-vessel morphology of the thoracic aortic arch. There is patency of the innominate and imaged subclavian arteries. Common carotid arteries are patent. There is mild atherosclerosis of the carotid bulbs without significant stenosis. The bilateral anterior and middle cerebral arteries are also patent. Mid to basilar artery. origin of the posterior cerebral arteries. There is no aneurysm, high-grade stenosis, or proximal branch occlusion identified. Patent codominant vertebral arteries. Dural sinuses appear patent. Unremarkable soft tissues. No pneumothorax. Degenerative changes of the cervical spine. IMPRESSION: 1. No acute intracranial abnormality. 2. Unremarkable CTA of the head and neck. ACT 112: Negative or not required by law. The above report was generated using voice recognition software. It may contain grammatical, syntax or spelling errors. Electronically signed by: Zoran Delgado M.D. 12/23/2023 6:38 PM Neck CTA 12/23/23 17:22 CT angio head w con, CT angio neck with con, CT head/brain wo con CLINICAL HISTORY: 68 years-old Female with acute confusion. Acutely altered mental status COMPARISON STUDY: None TECHNIQUE: Unenhanced axial CT scan of the brain is performed. Subsequently, following the IV administration of 116 cc of Optiray, CT angiogram of the head and neck was performed from the aortic arch to the skull apex. Images are reviewed in the axial, sagittal, and coronal planes. 3-D MIPS images are created and assessed. IV contrast was administered without complication. All measurements were obtained according to NASCET criteria. A dose lowering technique was utilized adhering to the principles of ALARA. CT DOSE: 1044.42 mGy.cm FINDINGS: CT BRAIN: There is no acute intracranial hemorrhage, midline shift, hydrocephalus, intracranial mass, territorial ischemia or abnormal extra-axial collections. No abnormal intra-axial or extra-axial enhancement. Mild involutional changes. Mastoid air cells and middle ear cavities are clear. No calvarial fracture. 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 Paranasal sinuses are clear. CT ANGIOGRAM OF THE HEAD AND NECK: Three-vessel morphology of the thoracic aortic arch. There is patency of the innominate and imaged subclavian arteries. Common carotid arteries are patent. There is mild atherosclerosis of the carotid bulbs without significant stenosis. The bilateral anterior and middle cerebral arteries are also patent. Mid to basilar artery. origin of the posterior cerebral arteries. There is no aneurysm, high-grade stenosis, or proximal branch occlusion identified. Patent codominant vertebral arteries. Dural sinuses appear patent. Unremarkable soft tissues. No pneumothorax. Degenerative changes of the cervical spine. IMPRESSION: 1. No acute intracranial abnormality. 2. Unremarkable CTA of the head and neck. ACT 112: Negative or not required by law. The above report was generated using voice recognition software. It may contain grammatical, syntax or spelling errors. Electronically signed by: Zoran Delgado M.D. 12/23/2023 6:38 PM Code Status & VTE Plan Code Status Full code VTE Prophylaxis Plan VTE Prophylaxis will be ordered: Yes Supervising Physician Co-Signing Physician Notes Patient seen and examined, chart reviewed, case discussed with TWIN Hogan and I agree with the assessment and plan as above. In brief, patient is a 68yo female with history of BiPolar disorder on Clonazepam and Lamictal presenting with worsening howie - UTI and MAGALY. No suicidal ideation. On exam patient is restless in bed, NAD. Answering questions appropriately but tangential, pressured speech. HEENT - MMM, Neck supple Heart - +S1/S2, regular, no m/r/g Lungs - CTA, no rales/rhonchi/wheezes Abd - Soft, NT/ND Ext - warm, well perfused Neuro - tangential thoughts, pressured speech Assessment/plan - suspect howie as well as metabolic encephalopathy secondary to UTI and MAGALY. Patient reports she has not slept or eaten for days. She does have some insight into her mental state -Will give Zyprexa 10mg po now - hopefully patient will sleep and antipsychotic will assist with her acute howie -Treatment of UTI and MAGALY as above -No SI endorsed by patient. She is not violent or combative -Psychiatry consultation appreciated -Remainder as above PG Care Time/CCT Total # of Minutes Spent Total Time Spent with Patient: Total time spent is greater than 50% in coordination of care (as documented) at patient's floor/unit and/or counseling patient: Coding [place] [address] INT INP/OBS CARE 3/75MIN Patient Type Established Medical Decision Making High Complexity Diagnoses Bipolar I disorder with howie F31.10 Acute UTI N39.0 MAGALY (acute kidney injury) N17.9 Elevated LFTs R79.89 Hypokalemia E87.6
[2023-12-23] MEDS: LACTATED RINGER'S 1,000 ML IV ONE (20:26)
[2023-12-23] MEDS: OLANZapine 10 MG TAB PO STA (20:31)
[2023-12-23] MEDS: POTASSIUM CHLORIDE CRTAB 20 MEQ TABCR PO STA (20:57)
[2023-12-24 06:31] LABS: Basophils # (auto) 0.03 K/uL (0.00-0.20); Basophils % (auto) 0.4 %; Eosinophils # (auto) 0.14 K/uL (0.00-0.50); Hemoglobin 11.7 g/dl (12.0-16.0); Immature Granulocytes # (auto) 0.02 K/uL (0.01-0.20); Immature Granulocytes % (auto) 0.3 %; Lymphocytes # (auto) 1.77 K/uL (1.20-3.40); Lymphocytes % (auto) 24.7 %; Mean Corpuscular Hemoglobin 30.5 pg (25.0-34.0); Mean Corpuscular Hgb Conc 35.5 g/dL (32.0-36.0); Mean Corpuscular Volume 86.2 fL (80.0-100.0); Mean Platelet Volume 10.3 fL (9.4-12.4); Monocytes # (auto) 0.95 K/uL (0.11-0.59); Monocytes % (auto) 13.3 %; Neutrophils # (auto) 4.25 K/uL (1.40-6.50); Neutrophils % (auto) 59.3 %; Platelet Count 356 K/uL (130-400); RDW Coefficient of Variation 13.7 % (11.5-14.5); RDW Standard Deviation 43.1 fL (36.4-46.3); Red Blood Count 3.83 M/uL (4.20-5.40); White Blood Count 7.16 K/ul (4.8-10.8)
[2023-12-24 06:53] LABS: Albumin Globulin Ratio 1.6 (0.9-2); Albumin Level 4.1 gm/dl (3.4-5.0); Bilirubin,Total 0.7 mg/dl (0.2-1.0); Creatinine Clr Calc Pharmacy 48.5 ml/min; Globulin 2.6 gm/dl (2.5-4.0); Magnesium 2.1 mg/dl (1.7-2.4); Total Protein 6.7 gm/dl (6.0-8.3)
[2023-12-24 06:55] LABS: INR 1.1 (0.9-1.1); Prothrombin Time 11.9 Seconds (9.0-12.0)
[2023-12-24] MEDS: lamoTRIgine 25 MG TAB PO SCH (08:44)
--- NOTE | 2023-12-24 09:40 | Hospitalist Progress Note ---
Date of Service December 24, 2023 Assessment & Plan (1) MAGALY (acute kidney injury): Plan: 68-year-old woman with history of bipolar disorder admitted with concern over manic episode, acute kidney injury, rhabdomyolysis, urinary tract infection. eventually became clear that she also has benzodiazepine withdrawal. Has denied alcohol use however elevated LFTs raise concern for Alcohol withdrawal as well. Creatinine elevated at 1.72 at time of admission with rhabdomyolysis total CK of 9500. suspect prerenal MAGALY - repeat CK this morning and tomorrow morning, ordered LR at 150 will increase rate if CK has not improved significantly overnight. addendum CK is down to 7500s, continue fluids - MAGALY is improving creatinine has come down to 1.0 which is near her baseline (2) Acute UTI: Plan: increased urinary frequency and dysuria since 12/18/2023 continue ceftriaxone pending urine culture, 3-day course should be adequate (3) Benzodiazepine withdrawal with delirium: Plan: history of benzodiazepine dependence, I reviewed the PDMP and she is prescribed 0.5 mg p.o. 3 times daily she stated she had been taking more than this perhaps around 3 mg/day recently which she acquired online, she ran out 1-1/2 days ago has had a history of a seizure in the past possible concurrent alcohol withdrawal continue her usual clonazepam 0.5 mg 3 times daily - add low-dose gabapentin load and taper, start with 600 mg - as needed lorazepam as directed by AWSS, start with oral, changed to IV if ineffective/withdrawal accelerating - AM BMP - supplementation of thiamine and folate (4) Bipolar I disorder with howie: Plan: withdrawal syndrome, UTI and/or cannabis contributing continue Lamictal, resume clonazepam 0.5 mg 3 times daily because this is her baseline dosing psychiatry consult requested, discussed with Dr. Arteaga continue lamotrigine treat acute medical conditions and withdrawal as outlined above, assess response (5) Elevated LFTs: Plan: mild elevation of AST and ALT have improved this may be coming from the muscle since her CK was over 9500. alcohol level was negative she denies recent alcohol use but could be alcohol related, APAP level was normal. bilirubin and alk phos were normal will recheck in 24 to 48 hours to make sure resolving (6) Hypokalemia: Plan: mild hypokalemia was replaced orally (7) Generalized anxiety disorder: Plan cardiac telemetry no longer necessary add DVT prophylaxis - enoxaparin Admission and Anticipated Discharge Date Admission Date: December 23, 2023 Subjective Delores Beltran is feeling better today, she is tremulous and still anxious but seems able to have a more directed conversation, she cannot answer about whether she is having dysuria today because "I have not urinated" she did tell her psychiatrist that she had bought clonazepam online recently and was taking more than prescribed perhaps 3 mg total per day and ran out a day and a half ago. She does not admit this to me is somewhat evasive and states "how can you withdraw from 1.5 mg/day" she does feel safe in the hospital she does not have any desire to hurt herself or anyone else Physical Exam 2 Physical Exam: PHYSICAL EXAMINATION Last 24h vital signs reviewed, see documentation in flowsheet General: awake and sitting up in bed HEENT: Normocephalic, atraumatic, pupils round and equal, sclerae anicteric, no conjunctival injection, moist mucus membranes Lungs: Normal respiratory effort. Clear to auscultation bilaterally. No RRW Heart: Regular rate and rhythm, no murmurs. No JVD Abdomen: Soft, nontender, nondistended. Bowel sounds present. Extremities: Warm, dry, well-perfused. No extremity edema. Neuro: Alert and oriented x person hospital partially to situation, face symmetric, moves 4 extremities well, tremulous but skin is warm and dry Psych: poor historian and/or evasive currently but train of thought seems medical coherent and organized than what was described last night somewhat tangential and circumstantial at times Results & Data Results & Data Vital Signs (Past 12 Hours) Vital Signs Temp Pulse Pulse Pulse Resp BP BP 12/24/23 07:05 37.4 C 67 18 151/99 H 12/24/23 03:28 36.8 C 72 18 151/78 H 12/24/23 03:05 64 12/24/23 01:49 36.4 C 64 18 125/85 12/23/23 23:00 74 18 121/75 12/23/23 22:00 98 H 18 153/98 H Pulse Ox O2 Del Method 12/24/23 07:05 96 Room Air 12/24/23 03:28 93 Room Air 12/24/23 03:05 12/24/23 01:49 94 Room Air 12/23/23 23:00 97 Room Air 12/23/23 22:00 99 Room Air Laboratory Results 12/24/23 05:39 12/24/23 05:39 AST and ALT have improved to 125/53, total CK was elevated at 9533 yesterday, TSH normal at 1.4, alcohol level negative Tylenol level negative PG Care Time/CCT Total # of Minutes Spent Total Time Spent with Patient: Total time spent is greater than 50% in coordination of care (as documented) at patient's floor/unit and/or counseling patient: Coding Level of Care Code 58674 SUB INP/OBS CARE 3/50MIN Diagnoses MAGALY (acute kidney injury) N17.9 Acute UTI N39.0 Benzodiazepine withdrawal with delirium F13.931 Bipolar I disorder with howie F31.10 Elevated LFTs R79.89 Hypokalemia E87.6 Generalized anxiety disorder F41.1
[2023-12-24] MEDS: LACTATED RINGER'S 1,000 ML IV SCH (10:24)
--- NOTE | 2023-12-24 10:51 | Electrocardiogram Report ---
Test Reason : Blood Pressure : */* mmHG Vent. Rate : 78 BPM Atrial Rate : 78 BPM P-R Int : 230 ms QRS Dur : 80 ms QT Int : 382 ms P-R-T Axes : 0 13 13 degrees QTcB Int : 435 ms Sinus rhythm with 1st degree A-V block Otherwise normal ECG Confirmed by Raz Chaidez ([id number]) on 12/24/2023 10:51:04 AM Referred By: REFERRED SELF Confirmed By: Raz Chaidez
[2023-12-24] MEDS: SODIUM CHLORIDE 0.9% 1,000 ML IV SCH (11:11)
--- NOTE | 2023-12-24 11:17 | Psychiatric Consultation ---
Date of Consultation December 24, 2023 Impression / Recommendations Impression Piero Boudreaux is a 68 yo woman with a history of BPAD, OZ, benzodiazepine dependence admitted medically for UTI, altered mental status. Psychiatry consulted for recommendations for acute howie. Diagnostically consistent with unspecified mood disorder suspect likely a combination of confusion/mood changes from acute benzodiazepine withdrawal as well as possible episode of howie. For now she is agreeable to hospitalization to address benzodiazepine withdrawal, as her confusion improves can then better assess need for further inpatient psychiatric treatment and/or psychiatric medication changes. NO acute safety concerns at this time as she denies SI and HI. Overall, I spent a total of 60 minutes with this case including review of chart records, review of labwork, review of EKG QTc, direct evaluation of the patient at bedside, counseling the patient, discussion of the patient with the Nurse and with the hospitalist provider, discussion with the psychiatric liason during clinical rounds, review of collateral historian information from the family and documentation in the electronic health record. (1) Mood disorder: (2) Benzodiazepine withdrawal with delirium: Plan -AWSS, thiamine, folic acid, ativan for scoring, consider gabapentin to reduce risk for seizure (but defer to hospitalist as she is also on lamictal) -Will attempt to get further collateral from her outpatient psychiatrist Dr. Thompson -Psychiatry will continue to follow closely -For behavioral emergency recommend: ativan 1mg IM or IV. Would avoid antipsychotic medications given risk for lowering the seizure threshold during acute withdrawal period. Psych History Identifying Data Piero Boudreaux is a 68 yo woman with a history of BPAD, OZ, benzodiazepine dependence admitted medically for UTI, altered mental status. Psychiatry consulted for recommendations for acute howie. Chief Complaint "I bought Klonopin online". History of Present Illness Piero was referred to the hospital after calling her outpatient psychiatrist on the phone as he was concerned about her state of mind. Once arrival to the hospital she presented with confusion, flight of ideas, tangential with concern for acute howie and was found to have a UTI. Today she reports on my introduction that "I bought Klonopin online". States she has gone the last 1.5 days without any and agrees that she is likely experiencing some degree of Klonopin withdrawal. She confirms a history of howie and that she has chronic poor sleep. She reports currently being prescribed klonopin 0.5mg TID but admits to purchasing additional klonopin online since and taking up to 1mg TID depending on the day. She is concerned that this is going to cause legal problems for her and suspects that her outpatient psychiatrist will refuse to speak with me and has told her he can no longer see her as a patient. She reports recent significant psychosocial stressors over the years including the unexpected of her , selling her house, and a history of her father dying when she was 5 years old and growing up with her mother with a significant alcohol use disorder. 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 She is currently prescribed lamictal, unclear if this is for seizure prevention vs mood stabilization. She also has a longstanding essential tremor. Her sleep has been poor, averaging 6 hours per night, but she reports this is chronic and that she has never been a good sleeper. She attended her 20th high school reunion recently and consumed alcohol at the event but denies any alcohol use since then. She is not currently engaged in therapy but is open to it. Allergies Allergy/AdvReac Type Severity Reaction Status Date / Time Bactrim Allergy Unknown . Verified 12/26/16 14:20 lanolin Allergy Unknown Unknown Verified 08/07/21 12:47 latex Allergy Unknown dry Unverified 08/07/21 12:47 cracked skin mold Allergy Unknown RASH Unverified 08/07/21 12:47 Sulfa (Sulfonamide Allergy Unknown swollen Unverified 08/07/21 12:47 Antibiotics) lips and tongue sulfamethoxazole Allergy Unknown . Verified 08/07/21 12:47 trimethoprim Allergy Unknown . Verified 08/07/21 12:47 amoxicillin AdvReac Unknown stomach Unverified 08/07/21 12:47 can't tolerate SEASONAL ALLERGIES Allergy Intermediate RUNNY Uncoded 08/07/21 12:47 NOSE/ITCHY EYES/HORSE THROAT Home Medications Medication Instructions Recorded Confirmed Type ascorbic acid (vitamin C) 500 mg 500 mg PO QAM 12/07/18 12/23/23 History tablet calcium cit 250 mg-mag 40 mg-D3 1 tab PO DAILY 08/07/21 12/23/23 History 125 unit-zinc 3.75 mg-office copy selector-andre tablet (Calcium Citrate Plus) clonazepam 0.5 mg tablet 0.5 mg PO TID #14 tabs 08/07/21 12/23/23 Rx lamotrigine 25 mg tablet 25 mg PO DAILY 12/23/23 12/23/23 History Patient History Medical History (Updated 12/24/23 @ 16:05 by Ondina Arteaga MD) Adenocarcinoma of uterus Surgical History History of breast surgery puncture aspiration of cyst History of repair of rotator cuff History of hysterectomy History of tooth extraction History of shoulder surgery Family History Aunt Colorectal cancer Uncle Colorectal cancer Grandmother Depression Unknown Lung cancer Colonic polyp Mother Alcohol abuse Anxiety Depression Sister Alcohol abuse Anxiety Depression Denies family history of Ovarian cancer Prostate cancer Myocardial infarction Breast cancer Social History Smoking Status: Former smoker Age Started Using Tobacco: 18; Age Quit Using Tobacco: 32; Do You Dip or Chew Tobacco: No; Hx Alcohol Use: Yes Alcohol type: beer Hx Substance Use: No Preferred Language: Mongolian Communication Ability: Effective Visual Impairment: No Limitations Hearing Ability: Normal Breast Splitter Required: No Beliefs That Will Affect Care: None marital status: / Current Living Situation: Alone current occupational status: retired Feels Safe at Home: Yes Safety Concerns: Feels Safe At This Time Childhood Exposure to Second-Hand Smoke: Yes Dental Care, Regularly: Yes Physical Activity Frequency: 3-4 Times per Week Seatbelt Use: always Sunscreen Use: Yes Assistive Devices: None Physical Exam Psychiatric: Orientation: alert and oriented to person Apperance: appropriately dressed Eye Contact: good eye contact Motor Behavior: no abnormal motor movements and + tremor Speech: + abnormal rate/rhythm/volume of speech (rapid) Affect: + anxious affect Mood: + anxious mood Thought Process: + tangential thought process Thought Content: + preoccupation and reality based without delusions Suicidal Thoughts: denies suicidal thoughts Homicidal Thoughts: denies homicidal thoughts Hallucinations: no auditory hallucinations and no visual hallucinations Insight: + limited insight Judgment: + limited judgement Vital Signs (Past 24 Hours): Last Vital Signs Temp 37.4 C 12/24/23 07:05 Pulse 67 12/24/23 07:05 Resp 18 12/24/23 07:05 BP 151/99 H 12/24/23 07:05 Pulse Ox 96 12/24/23 07:05 O2 Del Method Room Air 12/24/23 07:05 Results & Data (PSY) Medications Administered Lamotrigine (Lamotrigine 25 Mg Tab) 25 mg PO DAILY CLAUS; Protocol Stop: 01/23/24 08:59 Last Admin: 12/24/23 08:44 Dose: 25 mg Documented By: LUCITA Coding Level of Care Code 37195 IN/OBS CONSULT LVL 4,60M Diagnoses Mood disorder F39 Benzodiazepine withdrawal with delirium F13.931
[2023-12-24] MEDS ORDERED: Ativan PO Alcohol Withdrawal--Active Protocol PO PRN (11:27)
[2023-12-24] MEDS ORDERED: GABAPENTIN 600MG ALCOHOL WITHDRAWAL LOAD PO STA (11:27)
[2023-12-24] MEDS ORDERED: LORazepam 1 MG TAB PO PRN ×2 (11:27)
[2023-12-24 11:49] LABS: Calcium 8.7 mg/dl (8.6-10.3); Potassium 3.8 mmol/L (3.5-5.1)
[2023-12-24 11:55] LABS: BUN Creatinine Ratio 12.7 (10-20); Est GFR (African American) 65.5 ml/min; Est GFR (Non-African American) 56.5 ml/min
[2023-12-24] MEDS: LORazepam 1 MG TAB PO PRN (11:59)
[2023-12-24] MEDS: GABAPENTIN 600 MG TAB PO ONE (12:05)
[2023-12-24] MEDS: FOLIC ACID 1 MG TAB PO SCH (12:05)
[2023-12-24] MEDS: THIAMINE HCL 100 MG TAB PO SCH (12:05)
[2023-12-24] MEDS: clonazePAM 0.5 MG TAB PO SCH (14:00)
[2023-12-24] MEDS: GABAPENTIN 100 MG CAP PO SCH (18:39)
[2023-12-24] MEDS: cefTRIAXone SODIUM 2,000 MG/50 ML BAG IV SCH (20:12)
[2023-12-25 09:14] LABS: Anion Gap 6 (3-11); BUN Creatinine Ratio 15.6 (10-20); Blood Urea Nitrogen 17 mg/dl (6-23); Calcium 8.4 mg/dl (8.6-10.3); Carbon Dioxide 25 mmol/L (21-32); Chloride 112 mmol/L (98-107); Creatinine Clr Calc Pharmacy 44.4 ml/min; Est GFR (African American) 60.4 ml/min; Est GFR (Non-African American) 52.1 ml/min; Glucose 89 mg/dl (70-99(Fasting)); Sodium 143 mmol/L (136-145)
[2023-12-25] MEDS: ENOXAPARIN INJ 40 MG/0.4 ML SYR SQ SCH (09:30)
[2023-12-25 09:41] LABS: Creatine Kinase 3100 U/L (26-192)
[2023-12-25] MEDS: cephALEXin 500 MG CAP PO SCH (10:16)
--- NOTE | 2023-12-25 11:40 | Psychiatric Progress Note ---
Date of Service December 25, 2023 Impression / Recommendations Impression Piero Boudreaux is a 68 yo woman with a history of BPAD, OZ, benzodiazepine dependence admitted medically for UTI, altered mental status. Psychiatry consulted for recommendations for acute howie. Diagnostically consistent with unspecified mood disorder suspect likely a combination of confusion/mood changes from acute benzodiazepine withdrawal as well as possible episode of howie. A: Sleeping this morning and not able to participate in interview. Suspect likely in part from sedating effects of gabapentin for additional seizure prevention coverage. If howie was an aspect of her presentation it is encouragin g that she is sleeping as this will help with mood stabilization. Message left for her outpatient psychiatrist Dr. Thompson for additional collateral as she signed PASTORA yesterday. For now she is agreeable to hospitalization to address benzodiazepine withdrawal, as this improves can then better assess need for further inpatient psychiatric treatment and/or psychiatric medication changes. No acute safety concerns at this time as she denies SI and HI. Overall, I spent a total of 25 minutes with this case including review of chart records, review of labwork, direct evaluation of the patient at bedside, discussion of the patient with the Nurse and with the hospitalist provider and documentation in the electronic health record. (1) Mood disorder: (2) Benzodiazepine withdrawal with delirium: Plan -AWSS, thiamine, folic acid, ativan for scoring, consider gabapentin to reduce risk for seizure (but defer to hospitalist as she is also on lamictal) -Will attempt to get further collateral from her outpatient psychiatrist Dr. Thompson, message left -Psychiatry will continue to follow closely -For behavioral emergency recommend: ativan 1mg IM or IV. Would avoid antipsychotic medications given risk for lowering the seizure threshold during acute withdrawal period. Interval History Identifying Information Piero Boudreaux is a 68 yo woman with a history of BPAD, OZ, benzodiazepine dependence admitted medically for UTI, altered mental status. Psychiatry consulted for recommendations for acute howie. Chief Complaint sleeping Subjective Subjective Patient was seen & assessed and interval progress reviewed. Sleeping this morning, did not wake to my verbal prompts. Spoke with her RN who notes she has been sleepy most of the morning but seemed less confused and did take her morning medications. Physical Exam Psychiatric Orientation: + not alert Vital Signs (Past 24 Hours) Last Vital Signs Temp 36.6 C 12/25/23 08:18 Pulse 64 12/25/23 08:18 Resp 18 12/25/23 08:18 BP 150/88 H 12/25/23 08:18 Pulse Ox 94 12/25/23 08:18 O2 Del Method Room Air 12/25/23 08:18 O2 Flow Rate 0 12/24/23 15:06 Results & Data ([facility]) Laboratory Results Laboratory Results - last 24 hr 12/24/23 12/25/23 12/25/23 05:39 08:16 10:01 Sodium 141 143 Potassium 3.8 TNP 3.7 Chloride 112 H Carbon Dioxide 19 L 25 Anion Gap 12 H 6 BUN 17 Creatinine 1.02 D 1.09 Est Cr Clr Drug Dosing 44.4 Est GFR ( Amer) 65.5 60.4 Est GFR (Non-Af Amer) 56.5 52.1 BUN/Creatinine Ratio 12.7 15.6 Glucose 92 89 Calcium 8.7 8.4 L AST 127 H ALT 52 Total Creatine Kinase 6756 H 3100 H Current Inpatient Medications Current Inpatient Medications: Current Inpatient Medications Cephalexin HCl (Cephalexin 500 Mg Cap) 500 mg PO BID [facility]; Protocol Stop: 12/30/23 08:59 Last Admin: 12/25/23 10:16 Dose: 500 mg Clonazepam (Clonazepam 0.5 Mg Tab) 0.5 mg PO TID [facility] Stop: 01/23/24 13:59 Last Admin: 12/25/23 09:35 Dose: 0.5 mg Enoxaparin Sodium (Enoxaparin Inj 40 Mg/0.4 Ml Syr) 40 mg SQ QAM [facility] Stop: 01/24/24 08:59 Last Admin: 12/25/23 09:30 Dose: 40 mg Folic Acid (Folic Acid 1 Mg Tab) 1 mg PO QAM [facility] Stop: 01/23/24 11:44 Last Admin: 12/25/23 09:31 Dose: 1 mg Gabapentin (Gabapentin 600 Mg Tab) 600 mg PO Q24H [facility] Stop: 12/25/23 12:01 Gabapentin (Gabapentin 400 Mg Cap) 400 mg PO Q24H [facility] Stop: 12/26/23 12:01 Gabapentin (Gabapentin 100 Mg Cap) 200 mg PO Q24H [facility] Stop: 12/27/23 12:01 Sodium Chloride (Nss) 1,000 mls @ 125 mls/hr IV .Q8H [facility] Stop: 01/23/24 10:29 Last Admin: 12/25/23 02:50 Dose: 125 mls/hr Lamotrigine (Lamotrigine 25 Mg Tab) 25 mg PO DAILY CLAUS; Protocol Stop: 01/23/24 08:59 Last Admin: 12/25/23 09:31 Dose: 25 mg Lorazepam (Lorazepam 1 Mg Tab) 1 mg PO UD PRN; Protocol PRN Reason: EtOH Withdrawal AWSS Score 6,7 Stop: 01/23/24 11:26 Last Admin: 12/24/23 11:59 Dose: 1 mg Lorazepam (Lorazepam 1 Mg Tab) 3 mg PO ONCE PRN; Protocol PRN Reason: EtOH Withdrawal AWSS Score 10 & above Lorazepam (Lorazepam 1 Mg Tab) 2 mg PO UD PRN; Protocol PRN Reason: EtOH Withdrawal AWSS Score 8,9 Stop: 01/23/24 11:26 Thiamine HCl (Thiamine Hcl 100 Mg Tab) 100 mg PO QAM [facility] Stop: 01/23/24 11:44 Last Admin: 12/25/23 09:31 Dose: 100 mg
[2023-12-25] MEDS: GABAPENTIN 600 MG TAB PO SCH (11:43)
--- NOTE | 2023-12-25 16:21 | Hospitalist Progress Note ---
Date of Service December 25, 2023 Assessment & Plan (1) MAGALY (acute kidney injury): Plan: 68-year-old woman with history of bipolar disorder admitted with concern over manic episode, acute kidney injury, rhabdomyolysis, urinary tract infection. eventually became clear that she also has benzodiazepine withdrawal. Has denied alcohol use however elevated LFTs raise concern for Alcohol withdrawal as well. Creatinine elevated at 1.72 at time of admission with rhabdomyolysis total CK of 9500. suspect prerenal MAGALY - CK improved to 3100 and muscle soreness resolved, continue IVF through tomorrow - MAGALY is improving creatinine has come down to 1.0 which is near her baseline (2) Acute UTI: Plan: increased urinary frequency and dysuria since 12/18/2023 continue ceftriaxone pending urine culture, 3-day course should be adequate (3) Benzodiazepine withdrawal with delirium: Plan: history of benzodiazepine dependence, I reviewed the PDMP and she is prescribed 0.5 mg p.o. [address] Arteaga she stated 12/23 she had been taking more than this perhaps around 3 mg/day recently which she acquired online, she ran out 1-1/2 days ago. 12/24 she told me that was "weeks ago" and she's been on her usual dose. possible concurrent alcohol withdrawal, though denies alcohol has had a history of a seizure in the past continue her usual clonazepam 0.5 mg 3 times daily -continue gabapentin at lower dose - as needed po lorazepam as directed by AWSS, remains tremulous - AM BMP - supplementation of thiamine and folate (4) Bipolar I disorder with howie: Plan: withdrawal syndrome, UTI and/or cannabis contributing continue Lamictal, resume clonazepam 0.5 mg 3 times daily because this is her baseline dosing psychiatry consult requested, discussed with Dr. Arteaga continue lamotrigine treat acute medical conditions and withdrawal as outlined above, assess response (5) Elevated LFTs: Plan: mild elevation of AST and ALT have improved this may be coming from the muscle since her CK was over 9500. alcohol level was negative she denies recent alcohol use but could be alcohol related, APAP level was normal. bilirubin and alk phos were normal will recheck in 24 to 48 hours to make sure resolving (6) Hypokalemia: Plan: mild hypokalemia was replaced orally (7) Generalized anxiety disorder: Plan DVT prophylaxis - enoxaparin Admission and Anticipated Discharge Date Admission Date: December 23, 2023 Subjective Slept hard all morning then awake this afternoon Highly anxious and remains tremulous but a little less so Says the extra clonazepam was "weeks ago" and that she's been on her usual dose last few weeks Phone has locked because she can't recall the passcode and too many attempts Worried about the state of her house, her landlord, paying bills etc Muscle soreness of legs has improved/resolved Physical Exam 2 Physical Exam: PHYSICAL EXAMINATION Last 24h vital signs reviewed, see documentation in flowsheet General: awake and alert HEENT: Normocephalic, atraumatic, pupils round and equal, sclerae anicteric, no conjunctival injection, moist mucus membranes Lungs: Normal respiratory effort. Heart: deferred Abdomen: nondistended. Extremities: Warm, dry, well-perfused. No extremity edema. Neuro: Alert and oriented x person hospital situation, remains tremulous, skin warm and dry Psych: anxious affect and mood, rapid speech and tangential at times, thoughts seem more organized than yesterday Results & Data Results & Data Vital Signs (Past 12 Hours) Vital Signs Temp Pulse Resp BP BP Pulse Ox O2 Del Method 12/25/23 15:57 36.9 C 71 18 168/95 H 96 Room Air 12/25/23 08:18 36.6 C 64 18 150/88 H 94 Room Air Laboratory Results 12/24/23 05:39 12/25/23 10:01 PG Care Time/CCT Total # of Minutes Spent Total Time Spent with Patient: Total time spent is greater than 50% in coordination of care (as documented) at patient's floor/unit and/or counseling patient: Coding Level of Care Code 71440 SUB INP/OBS CARE 2/35MIN Diagnoses MAGALY (acute kidney injury) N17.9 Acute UTI N39.0 Benzodiazepine withdrawal with delirium F13.931 Bipolar I disorder with howie F31.10 Elevated LFTs R79.89 Hypokalemia E87.6 Generalized anxiety disorder F41.1
[2023-12-25] MEDS: GABAPENTIN 100 MG CAP PO SCH (16:59)
[2023-12-25] MEDS: LORazepam 2 MG/1 ML VIAL IV STA (18:44)
[2023-12-25] MEDS: METHOCARBAMOL 500 MG TABLET PO PRN (20:23)
[2023-12-25] MEDS: MoRPHine SULFATE 2 MG/ML CARP IV PRN (21:42)
[2023-12-26] MEDS: METHOCARBAMOL 500 MG TABLET PO ONE (00:42)
[2023-12-26 06:29] LABS: BUN Creatinine Ratio 17.2 (10-20); Calcium 8.4 mg/dl (8.6-10.3); Creatinine Clr Calc Pharmacy 52.1 ml/min; Est GFR (African American) 73.2 ml/min; Est GFR (Non-African American) 63.1 ml/min; Potassium 3.5 mmol/L (3.5-5.1)
[2023-12-26 06:56] LABS: Albumin Globulin Ratio 1.8 (0.9-2); Albumin Level 3.9 gm/dl (3.4-5.0); Bilirubin,Total 0.5 mg/dl (0.2-1.0); Globulin 2.2 gm/dl (2.5-4.0); Total Protein 6.1 gm/dl (6.0-8.3)
[2023-12-26 09:22] LABS: Marijuana Quant, GCMS Urine 17 ng/mL (<5)
[2023-12-26] MEDS: amLODIPine BESYLATE 5 MG TAB PO SCH (10:14)
[2023-12-26] MEDS ORDERED: GABAPENTIN 400 MG CAP PO SCH (12:00)
--- NOTE | 2023-12-26 17:56 | Hospitalist Progress Note ---
Date of Service December 26, 2023 Assessment & Plan (1) MAGALY (acute kidney injury): Plan: 68-year-old woman with history of bipolar disorder admitted with concern over manic episode, acute kidney injury, rhabdomyolysis, urinary tract infection. eventually became clear that she also has benzodiazepine withdrawal. Has denied alcohol use however elevated LFTs raise concern for Alcohol withdrawal as well. Creatinine elevated at 1.72 at time of admission with rhabdomyolysis total CK of 9500. suspect prerenal MAGALY - CK improved to 2900 and muscle soreness resolved, hold IVF, check CK in am - MAGALY is improving creatinine has come down to 0.9 which is her baseline (2) Acute UTI: Plan: increased urinary frequency and dysuria since 12/18/2023 continue ceftriaxone pending urine culture, 3-day course should be adequate (3) Benzodiazepine withdrawal with delirium: Plan: history of benzodiazepine dependence, I reviewed the PDMP and she is prescribed 0.5 mg p.o. [address] Arteaga she stated 12/23 she had been taking more than this perhaps around 3 mg/day recently which she acquired online, she ran out 1-1/2 days ago. 12/24 she told me that was "weeks ago" and she's been on her usual dose. possible concurrent alcohol withdrawal, though denies alcohol has had a history of a seizure in the past continue her usual clonazepam 0.5 mg 3 times daily -continue gabapentin at lower dose - change to 100, 100, 300 - as needed po lorazepam as directed by AWSS, remains tremulous - AM BMP - supplementation of thiamine and folate (4) Bipolar I disorder with howie: Plan: withdrawal syndrome, UTI and/or cannabis contributing continue Lamictal, resume clonazepam 0.5 mg 3 times daily because this is her baseline dosing psychiatry consult requested, discussed with Dr. Arteaga continue lamotrigine treat acute medical conditions and withdrawal as outlined above, assess response -has only slept the one night after 600 mg gabapentin but that was oversedating -try 300 mg tonight (5) Elevated LFTs: Plan: mild elevation of AST and ALT have improved this may be coming from the muscle since her CK was over 9500. alcohol level was negative she denies recent alcohol use but could be alcohol related, APAP level was normal. bilirubin and alk phos were normal will recheck in AM (6) Hypokalemia: Plan: mild hypokalemia was replaced orally (7) Generalized anxiety disorder: Plan DVT prophylaxis - enoxaparin Admission and Anticipated Discharge Date Admission Date: December 23, 2023 Subjective Didn't sleep at all last 24h Continues with tremors but says she has a chronic tremor that gets worse when she is sick Remains anxious but seems a bit calmer today Physical Exam 2 Physical Exam: PHYSICAL EXAMINATION Last 24h vital signs reviewed, see documentation in flowsheet General: awake and alert HEENT: Normocephalic, atraumatic, pupils round and equal, sclerae anicteric, no conjunctival injection, moist mucus membranes Lungs: Normal respiratory effort. CTAB Heart: reg no mrg Abdomen: nondistended. Extremities: Warm, dry, well-perfused. No extremity edema. Neuro: Alert and oriented x person hospital situation, remains tremulous - slightly better?, skin warm and dry Psych: anxious affect and mood, speech less rapid, thoughts seem more organized Results & Data Results & Data Vital Signs (Past 12 Hours) Vital Signs Temp Pulse Resp BP Pulse Ox O2 Del Method 12/26/23 16:41 37.0 C 72 18 145/96 H 95 Room Air 12/26/23 11:59 36.8 C 68 16 121/84 94 Room Air 12/26/23 08:24 36.5 C 65 18 160/98 H 96 Room Air Laboratory Results 12/24/23 05:39 12/26/23 05:39 PG Care Time/CCT Total # of Minutes Spent Total Time Spent with Patient: Total time spent is greater than 50% in coordination of care (as documented) at patient's floor/unit and/or counseling patient: Coding Level of Care Code 68759 SUB INP/OBS CARE 2/35MIN Diagnoses MAGALY (acute kidney injury) N17.9 Acute UTI N39.0 Benzodiazepine withdrawal with delirium F13.931 Bipolar I disorder with howie F31.10 Elevated LFTs R79.89 Hypokalemia E87.6 Generalized anxiety disorder F41.1
[2023-12-26] MEDS: GABAPENTIN 300 MG CAP PO SCH (21:28)
[2023-12-27 06:51] LABS: BUN Creatinine Ratio 16.7 (10-20); Bilirubin Direct 0.1 mg/dl (0-0.2); Bilirubin,Total 0.3 mg/dl (0.2-1.0); Creatinine Clr Calc Pharmacy 57.7 ml/min; Est GFR (African American) 82.8 ml/min; Est GFR (Non-African American) 71.4 ml/min; Potassium 3.8 mmol/L (3.5-5.1); Total Protein 6.5 gm/dl (6.0-8.3)
[2023-12-27] MEDS: GABAPENTIN 100 MG CAP PO SCH ×2 (08:14→13:55)
[2023-12-27] MEDS ORDERED: GABAPENTIN 100 MG CAP PO SCH (12:00)
--- NOTE | 2023-12-27 13:53 | Hospitalist Progress Note ---
Date of Service December 27, 2023 Assessment & Plan (1) MAGALY (acute kidney injury): Plan: 68-year-old woman with history of bipolar disorder admitted with concern over manic episode, acute kidney injury, rhabdomyolysis, urinary tract infection. possibly had benzodiazepine withdrawal and/or alcohol withdrawal however this is unclear, she does deny alcohol alcohol abuse and gave inconsistent responses when queried about recent benzodiazepine use. Only required minimal as needed lorazepam once she was started back on her prescribed clonazepam 0.5 mg 3 times daily Creatinine elevated at 1.72 at time of admission with rhabdomyolysis total CK of 9500. prerenal MAGALY - CK improved to 1100 despite discontinuation of IV fluids 12/25, and muscle soreness resolved check CK in a.m. - MAGALY has resolved creatinine has come down to 0.9 which is her baseline (2) Acute UTI: Plan: increased urinary frequency and dysuria since 12/18/2023 completed 3-day course of antibiotics for pansensitive E. coli, now asymptomatic (3) Benzodiazepine withdrawal with delirium: Plan: history of benzodiazepine dependence, I reviewed the PDMP and she is prescribed 0.5 mg p.o. [address] Arteaga she stated 12/23 she had been taking more than this perhaps around 3 mg/day recently which she acquired online, she ran out 1-1/2 days [employer]. 12/24 she told me that was "weeks ago" and she's been on her usual dose. possible concurrent alcohol withdrawal, though denies alcohol has had a history of a seizure in the past continue her usual clonazepam 0.5 mg 3 times daily -continue gabapentin at lower dose - 100, 100, 300 mg. has been very helpful for sleep - if withdrawal syndrome was present it is now resolved/resolving. Discontinued AWSS and as needed Ativan - supplementation of thiamine and folate (4) Bipolar I disorder with howie: Plan: withdrawal syndrome, UTI and/or cannabis contributing continue Lamictal, resumed clonazepam 0.5 mg 3 times daily because this is her baseline dosing psychiatry consult requested, discussed with Dr. Arteaga continue lamotrigine treat acute medical conditions and withdrawal as outlined above, assess response - improving, slept 2 out of the last 3 nights - would appreciate psychiatry reassessment 12/27 (5) Elevated LFTs: Plan: mild elevation of AST and ALT this may be coming from the muscle since her CK was over 9500. alcohol level was negative she denies recent alcohol use but could be alcohol related, APAP level was normal. bilirubin and alk phos were normal AST/ALT/alk phos virtually normal today (6) Hypokalemia: Plan: mild hypokalemia was replaced orally (7) Generalized anxiety disorder: Plan she will be medically ready for discharge tomorrow pending psychiatric reassessment DVT prophylaxis - enoxaparin Admission and Anticipated Discharge Date Admission Date: December 23, 2023 Subjective gait continues to improve, she feels like she is getting back to her normal self, she is less anxious less scattered and tremor significantly improved Physical Exam 2 Physical Exam: PHYSICAL EXAMINATION Last 24h vital signs reviewed, see documentation in flowsheet General: awake and alert HEENT: Normocephalic, atraumatic, pupils round and equal, sclerae anicteric, no conjunctival injection, moist mucus membranes Lungs: Normal respiratory effort. Heart: deferred Abdomen: nondistended. Extremities: Warm, dry, well-perfused. No extremity edema. Neuro: Alert and oriented x person hospital situation, tremor much improved now only mild, skin warm and dry without rashes Psych: affect is much less anxious, speech no longer so rapid, thoughts seem more organized and short-term memory has improved Results & Data Results & Data Vital Signs (Past 12 Hours) Vital Signs Temp Pulse Resp BP BP Pulse Ox O2 Del Method 12/27/23 07:30 36.5 C 68 16 158/95 H 94 Room Air 12/27/23 03:30 36.5 C 55 L 16 149/92 H 94 Room Air Laboratory Results 12/24/23 05:39 12/27/23 05:42 CK was 1100 PG Care Time/CCT Total # of Minutes Spent Total Time Spent with Patient: Total time spent is greater than 50% in coordination of care (as documented) at patient's floor/unit and/or counseling patient: Coding Level of Care Code 72053 SUB INP/OBS CARE 2/35MIN Diagnoses MAGALY (acute kidney injury) N17.9 Acute UTI N39.0 Benzodiazepine withdrawal with delirium F13.931 Bipolar I disorder with howie F31.10 Elevated LFTs R79.89 Hypokalemia E87.6 Generalized anxiety disorder F41.1
[2023-12-28 07:01] LABS: BUN Creatinine Ratio 17.8 (10-20); Calcium 9.2 mg/dl (8.6-10.3); Est GFR (African American) 66.2 ml/min; Est GFR (Non-African American) 57.2 ml/min; Potassium 4.1 mmol/L (3.5-5.1)
--- NOTE | 2023-12-28 16:28 | Psychiatric Progress Note ---
Date of Service December 28, 2023 Impression / Recommendations Impression Piero Boudreaux is a 68 yo woman with a history of BPAD, OZ, benzodiazepine dependence admitted medically for UTI, altered mental status. Psychiatry consulted for recommendations for acute howie. Diagnostically consistent with unspecified mood disorder suspect likely a combination of confusion/mood changes from acute benzodiazepine withdrawal as well as possible episode of howie. A: She continues to be in a depressed episode, however denies active SI, is future oriented, wants to engage with her community. She was offered voluntary inpatient psych admission (bedsearch for outside facility since she has a pre- existing relationship with a nurse here), and refused. She does not meet criteria for involuntary commitment at this time.Pt is still confused and slightly delirious. She presents some disorganized and tangential speech, not rational about discharge plans such as making appointments with psychiatrist. May benefit from additional recovery in the hospital. CM to assist with aftercare planning. Would benefit from transportation back home. Labs reviewed and CK trending down, Cr stable- MAGALY resolved. Overall, I spent a total of 35 minutes with this case including review of chart records, review of lab work, direct evaluation of the patient at bedside, discussion of the patient with the Nurse and with the hospitalist provider and documentation in the electronic health record. (1) Mood disorder: (2) Benzodiazepine withdrawal with delirium: Plan -Continue home psychiatric medications -Follow-up on outpatient basis -We can conduct bed search if patient decides for inpatient psychiatric hospitalization -CM to assist with outpatient psychiatry f/u appointment Interval History Identifying Information Piero Boudreaux is a 68 yo woman with a history of BPAD, OZ, benzodiazepine dependence admitted medically for UTI, altered mental status. Psychiatry consulted for recommendations for acute howie. Chief Complaint "Angry at self" Subjective Subjective Patient reports being upset with herself for what happened. Reports prior to hospitalization she was isolating and had a low mood. Complained of poor sleep and lack of energy. She did realize she was using more Klonopin than intended and realizes she did have enough for the rest of the month and was fearful. She does not member taking that much. Reports history of chronic passive SI for years. Denies active plan or intention. Reports being excited to connect with her friends, go hiking, and get back to the gym. Reports that her friends have been loving and have reached out to her since she has been hospitalized and knows that the care. She reflects on past stressful events including her father passing away in an airplane accident and her passing away in his sleep while she was away and being blamed by her [id number]. Reports many life changes since then such as having to sell the house and will now living independently. She presents difficulty recalling the past code for her phone and is resistant to speaking follow-up appointments for her; concern for self judgment. Physical Exam Mental Examination Appearance: Disheveled Eye Contact: Maintains Eye Contact Motor Behavior: Unremarkable Speech: Normal Mood: Anxious and Sad Affect: Congruent Thought Process: Tangential Thought Content: Intact Hallucinations: None Insight: Fair (to limited) Judgement: Poor (to limited) Vital Signs (Past 24 Hours) Last Vital Signs Temp 36.5 C 12/28/23 07:35 Pulse 72 12/28/23 07:35 Resp 16 12/28/23 07:35 BP 124/86 12/28/23 07:35 Pulse Ox 99 12/28/23 07:35 O2 Del Method Room Air 12/28/23 07:35 O2 Flow Rate 0 12/24/23 15:06 Results & Data ([facility]UST) Laboratory Results Laboratory Results - last 24 hr 12/28/23 05:58 Sodium 141 Potassium 4.1 Chloride 108 H Carbon Dioxide 26 Anion Gap 7 BUN 18 Creatinine 1.01 Est Cr Clr Drug Dosing 48.0 Est GFR ( Amer) 66.2 Est GFR (Non-Af Amer) 57.2 BUN/Creatinine Ratio 17.8 Glucose 98 Calcium 9.2 Total Creatine Kinase 695 H Current Inpatient Medications Current Inpatient Medications: Current Inpatient Medications Amlodipine Besylate (Amlodipine Besylate 5 Mg Tab) 5 mg PO QAM [facility] Stop: 01/25/24 09:44 Last Admin: 12/28/23 08:42 Dose: 5 mg Clonazepam (Clonazepam 0.5 Mg Tab) 0.5 mg PO TID [facility] Stop: 01/23/24 13:59 Last Admin: 12/28/23 14:01 Dose: 0.5 mg Enoxaparin Sodium (Enoxaparin Inj 40 Mg/0.4 Ml Syr) 40 mg SQ QAM [facility] Stop: 01/24/24 08:59 Last Admin: 12/28/23 08:43 Dose: 40 mg Folic Acid (Folic Acid 1 Mg Tab) 1 mg PO QAM [facility] Stop: 01/23/24 11:44 Last Admin: 12/28/23 08:42 Dose: 1 mg Gabapentin (Gabapentin 100 Mg Cap) 100 mg PO QAM [facility] Stop: 01/26/24 08:59 Last Admin: 12/28/23 08:42 Dose: 100 mg Gabapentin (Gabapentin 100 Mg Cap) 100 mg PO DAILY@1400 [facility] Stop: 01/26/24 13:59 Last Admin: 12/28/23 14:01 Dose: 100 mg Gabapentin (Gabapentin 300 Mg Cap) 300 mg PO HS [facility] Stop: 01/25/24 20:59 Last Admin: 12/27/23 20:02 Dose: 300 mg Lamotrigine (Lamotrigine 25 Mg Tab) 25 mg PO DAILY [facility]; Protocol Stop: 01/23/24 08:59 Last Admin: 12/28/23 08:42 Dose: 25 mg Methocarbamol (Methocarbamol 500 Mg Tablet) 500 mg PO TID PRN PRN Reason: Muscle Spasm Stop: 01/24/24 18:24 Last Admin: 12/28/23 12:23 Dose: 500 mg Thiamine HCl (Thiamine Hcl 100 Mg Tab) 100 mg PO QAM [facility] Stop: 01/23/24 11:44 Last Admin: 12/28/23 08:43 Dose: 100 mg
--- NOTE | 2023-12-28 17:04 | Hospitalist Progress Note ---
Date of Service December 28, 2023 Assessment & Plan (1) MAGALY (acute kidney injury): Plan: 68-year-old woman with history of bipolar disorder admitted with acute encephalopathy concern over manic episode, acute kidney injury, rhabdomyolysis, urinary tract infection. was in benzodiazepine withdrawal related to having run out of clonazepam. Only required 2 doses lorazepam once she was started back on her prescribed clonazepam 0.5 mg 3 times daily. Creatinine elevated at 1.72 at time of admission with rhabdomyolysis total CK of 9500. prerenal MAGALY - CK improved to 600s despite discontinuation of IV fluids 12/25, and muscle soreness resolved - MAGALY has resolved creatinine has come down to 0.9 which is her baseline (2) Acute UTI: Plan: increased urinary frequency and dysuria since 12/18/2023 completed 3-day course of antibiotics for pansensitive E. coli, now asymptomatic (3) Benzodiazepine withdrawal with delirium: Plan: history of benzodiazepine dependence, I reviewed the PDMP and she is prescribed 0.5 mg p.o. 3 times daily. a little unclear but perhaps ran out 1 to 2 days prior to admission has had a history of a seizure in the past continue her usual clonazepam 0.5 mg 3 times daily -continue gabapentin at lower dose - 100, 100, 300 mg. has been very helpful for sleep -resolved/resolving. -supplementation of thiamine and folate - I discussed with her possibilities of slowly tapering off versus weekly fills if she is to remain on this medication long-term. SSRI/SNRI for anxiety and depression may be problematic for her as she had an episode of howie triggered by Prozac in the past (4) Bipolar I disorder with howie: Plan: withdrawal syndrome, UTI and/or cannabis contributing continue Lamictal, resumed clonazepam 0.5 mg 3 times daily because this is her baseline dosing psychiatry consulted - had follow-up today discussed with Dr. Liang voluntary psychiatric admission was offered which she declined we discussed making a follow up appointment with her psychiatrist as soon as possible, she is anxious about this she has improved day by day, I think she'll be safe for discharge home in 1-2 days. She does live alone (5) Elevated LFTs: Plan: mild elevation of AST and ALT this may be coming from the muscle since her CK was over 9500. alcohol level was negative she denies recent alcohol use but could be alcohol related, APAP level was normal. bilirubin and alk phos were normal AST/ALT/alk phos virtually normalized (6) Hypokalemia: Plan: mild hypokalemia was replaced orally (7) Generalized anxiety disorder: Plan: see above Plan DVT prophylaxis - enoxaparin Admission and Anticipated Discharge Date Admission Date: December 23, 2023 Subjective cognition is better today, remains anxious and depressed but now is starting to have forward-looking positive plans like calling a good friend, going hiking and skiing, cooking etc. tremulousness much improved she did sleep well last night Physical Exam 2 Physical Exam: PHYSICAL EXAMINATION Last 24h vital signs reviewed, see documentation in flowsheet General: awake and alert, sitting in bed HEENT: Normocephalic, atraumatic, pupils round and equal, sclerae anicteric, no conjunctival injection, moist mucus membranes Lungs: Normal respiratory effort. Heart: deferred Abdomen: nondistended. Extremities: Warm, dry, well-perfused. No extremity edema. Neuro: Alert and oriented x person hospital situation, tremor much improved now only mild, skin warm and dry without rashes Psych: continues to be a little bit disorganized/scattered with her thoughts but significantly improved, continues to have anxious and depressed mood however is less perseverative and has forward-looking goals and plans at this time, has slept 3 out of the last 4 nights which is a big improvement Results & Data Results & Data Vital Signs (Past 12 Hours) Vital Signs Temp Pulse Resp BP Pulse Ox O2 Del Method 12/28/23 07:35 36.5 C 72 16 124/86 99 Room Air Laboratory Results 12/24/23 05:39 12/28/23 05:58 CK 600s PG Care Time/CCT Total # of Minutes Spent Total Time Spent with Patient: Total time spent is greater than 50% in coordination of care (as documented) at patient's floor/unit and/or counseling patient: Coding Level of Care Code 54239 SUB INP/OBS CARE 2/35MIN Diagnoses MAGALY (acute kidney injury) N17.9 Acute UTI N39.0 Benzodiazepine withdrawal with delirium F13.931 Bipolar I disorder with howie F31.10 Elevated LFTs R79.89 Hypokalemia E87.6 Generalized anxiety disorder F41.1
[2023-12-29 10:18] LABS: Calcium 9.2 mg/dl (8.6-10.3); Est GFR (African American) 71.3 ml/min; Est GFR (Non-African American) 61.5 ml/min; Potassium 4.2 mmol/L (3.5-5.1)
--- NOTE | 2023-12-29 19:50 | Hospitalist Progress Note ---
Date of Service December 29, 2023 Assessment & Plan (1) MAGALY (acute kidney injury): Plan: resolved peak Cr 1.7 at time of admission likely 2nd to rhabdomyolysis (CPK 9500 at admission) Cr today 0.9 CPK 361 today (2) Acute UTI: Plan: 2nd to E. coli treated, resolved (3) Benzodiazepine withdrawal with delirium: Plan: history of benzodiazepine dependence may have had mild benzo withdrawal in the first day or two of this admission clonazepam 0.5mg TID resumed no evidence of withdrawal at this time remains on gabapentin at dosing of 100mg am, 100mg afternoon, and 300mg HS continue at d/c ? will d/w psychiatry (4) Bipolar I disorder with howie: Plan: cont lamictal 25mg daily patient not manic at this time voluntary psychiatric admission was offered by psychiatry - declined I had the behavioral health liaison speak with her again today - she declined once more inpatient treatment wants everything outpatient (5) Elevated LFTs: Plan: repeat in am likely was 2nd to rhabdomyolysis (6) Hypokalemia: Plan: replaced resolved (7) Generalized anxiety disorder: Plan: cont klonipin & lamictal check B12, B1, etc in am (8) Acute metabolic encephalopathy: Plan: 2nd to UTI, MAGALY, etc. resolved can't rule out toxic encephalopathy from benzo withdrawal either way mental status back to baseline today (9) Rhabdomyolysis: Plan: peak CPK 9500 now 361 today resolved Plan DVT prophylaxis - enoxaparin once daily Hyperglycemia - 182 on AM labs today; check a1c in am can d/c home tomorrow Admission and Anticipated Discharge Date Admission Date: December 23, 2023 Subjective no physical complaints today she was tearful, however, during the majority of the visit she is locked out of her cellphone due to putting in the wrong password over and over she cannot reach out to her friends - doesn't have her address book has 2 siblings that live out of state but they don't talk we discussed post-discharge plans - she knows that she needs help for her mental health problems follows with local psychiatrist for many years willing to talk with our behavioral health team about post-discharge plans Review of Systems Review of Systems: cv - no chest pain pulm - no dyspnea or EDWARDS GI - moving bowels, no nausea Physical Exam Physical Exam: gen - tearful, anxious mouth - MMM neck - no JVD heart - RRR, s1 s2, no murmur lungs - CTA b/l abd - soft NT ND BS+ ext - no edema, pulses 2+ b/l psych - a/o x 3, but tearful Results & Data Results & Data Vital Signs (Past 12 Hours) Vital Signs Temp Pulse Resp BP BP Pulse Ox O2 Del Method 12/29/23 16:24 36.8 C 94 H 16 142/101 H 96 Room Air 12/29/23 09:05 118/85 Laboratory Results Laboratory Results - last 24 hr 12/29/23 09:43 Sodium 138 Potassium 4.2 Chloride 104 Carbon Dioxide 27 Anion Gap 7 BUN 19 Creatinine 0.95 Est Cr Clr Drug Dosing 51.0 Est GFR ( Amer) 71.3 Est GFR (Non-Af Amer) 61.5 BUN/Creatinine Ratio 20.0 Glucose 182 H Calcium 9.2 Total Creatine Kinase 361 H PG Care Time/CCT Total # of Minutes Spent Total Time Spent with Patient: Total time spent is greater than 50% in coordination of care (as documented) at patient's floor/unit and/or counseling patient: Coding Level of Care Code 77212 SUB INP/OBS CARE 2/35MIN Diagnoses MAGALY (acute kidney injury) N17.9 Acute UTI N39.0 Benzodiazepine withdrawal with delirium F13.931 Bipolar I disorder with howie F31.10 Elevated LFTs R79.89 Hypokalemia E87.6 Generalized anxiety disorder F41.1 Acute metabolic encephalopathy G93.41 Rhabdomyolysis M62.82
[2023-12-30 08:18] LABS: Estimated Average Glucose 128 mg/dl; Hemoglobin A1C 6.1 % (4.5-5.6)
[2023-12-30 08:43] LABS: Albumin Level 4.7 gm/dl (3.4-5.0); Bilirubin,Total 0.4 mg/dl (0.2-1.0); Total Protein 7.7 gm/dl (6.0-8.3)
--- NOTE | 2023-12-30 15:21 | Psychiatric Progress Note ---
Date of Service December 30, 2023 Impression / Recommendations Impression Piero Boudreaux is a 68 yo woman with a history of BPAD, OZ, benzodiazepine dependence admitted medically for UTI, altered mental status. Psychiatry consulted for recommendations for acute howie. Diagnostically consistent with unspecified mood disorder suspect likely a combination of confusion/mood changes from acute benzodiazepine withdrawal as well as possible episode of howie. A: Pt encouraged for inpatient psychiatry admission given concern for on-going depression; presented benefits of admission. Pt denies inpatient admission and presents plan to f/u outpatient. She is future oriented; denies SI; presents intact reality testing wanting to live for herself and others. She does not meet criteria for involuntary commitment at this time. Delirium resolved and presents good alertness, orientation, and cognition. Overall, I spent a total of 40 minutes with this case including review of chart records, review of lab work, direct evaluation of the patient at bedside, discussion of the patient with the Nurse and with the hospitalist provider and documentation in the electronic health record. (1) Mood disorder: (2) Bipolar disorder, unspecified: Plan -Continue home psychiatric medications -Follow-up on outpatient basis -We can conduct bed search if patient decides for inpatient psychiatric hospitalization -CM to assist with outpatient psychiatry f/u appointment Interval History Identifying Information Piero Boudreaux is a 68 yo woman with a history of BPAD, OZ, benzodiazepine dependence admitted medically for UTI, altered mental status. Psychiatry consulted for recommendations for acute howie. Chief Complaint "Nervous, little scared" Subjective Subjective patient complains of underlying anxiety, crying spells, insomnia prior to hospitalization. She was counseled on the benefits of inpatient admission including reevaluation of mental health concerns, medication management, appropriate aftercare planning. She reports she remains focused on completing tasks in the community eluding fixing her car, unlocking her phone, making appointments, staying with a friend. She reports being worried about declining health and reports previously being very healthy. Complains of generalized body aches and reassured. She is alert and oriented to person/place/year/month/situation. Presents some mild word-finding difficulties. She denies SI and presents a plan to follow up with psychiatry on an outpatient basis. Physical Exam Mental Examination Appearance: Disheveled Eye Contact: Maintains Eye Contact Motor Behavior: Restless Speech: Normal (some word finding difficulties) Mood: Anxious Affect: Congruent Thought Process: Intact and Linear Thought Content: Intact Hallucinations: None Insight: Poor (to limited) Judgement: Poor (to limited) Vital Signs (Past 24 Hours) Last Vital Signs Temp 36.4 C L 12/30/23 07:45 Pulse 77 12/30/23 07:45 Resp 17 12/30/23 07:45 BP 121/83 12/30/23 07:45 Pulse Ox 98 12/30/23 07:45 O2 Del Method Room Air 12/30/23 07:45 O2 Flow Rate 0 12/24/23 15:06 Results & Data ([facility]) Laboratory Results Laboratory Results - last 24 hr 12/30/23 07:34 Estimat Average Glucose 128 Hemoglobin A1c 6.1 H Total Bilirubin 0.4 Direct Bilirubin 0.0 AST 32 ALT 41 Alkaline Phosphatase 45 Total Protein 7.7 Albumin 4.7 Vitamin B1 Pending Vitamin B12 744 25-OH Vitamin D Total 29.9 L Current Inpatient Medications Current Inpatient Medications: Current Inpatient Medications Amlodipine Besylate (Amlodipine Besylate 5 Mg Tab) 5 mg PO QAM [facility] Stop: 01/25/24 09:44 Last Admin: 12/30/23 08:43 Dose: 5 mg Clonazepam (Clonazepam 0.5 Mg Tab) 0.5 mg PO TID [facility] Stop: 01/23/24 13:59 Last Admin: 12/30/23 13:27 Dose: 0.5 mg Enoxaparin Sodium (Enoxaparin Inj 40 Mg/0.4 Ml Syr) 40 mg SQ QAM [facility] Stop: 01/24/24 08:59 Last Admin: 12/30/23 08:45 Dose: 40 mg Folic Acid (Folic Acid 1 Mg Tab) 1 mg PO QAM [facility] Stop: 01/23/24 11:44 Last Admin: 12/30/23 08:44 Dose: 1 mg Gabapentin (Gabapentin 100 Mg Cap) 100 mg PO QAM [facility] Stop: 01/26/24 08:59 Last Admin: 12/30/23 08:43 Dose: 100 mg Gabapentin (Gabapentin 100 Mg Cap) 100 mg PO DAILY@1400 [facility] Stop: 01/26/24 13:59 Last Admin: 12/30/23 13:27 Dose: 100 mg Gabapentin (Gabapentin 300 Mg Cap) 300 mg PO HS [facility] Stop: 01/25/24 20:59 Last Admin: 12/29/23 20:09 Dose: 300 mg Lamotrigine (Lamotrigine 25 Mg Tab) 25 mg PO DAILY [facility]; Protocol Stop: 01/23/24 08:59 Last Admin: 12/30/23 08:44 Dose: 25 mg Methocarbamol (Methocarbamol 500 Mg Tablet) 500 mg PO TID PRN PRN Reason: Muscle Spasm Stop: 01/24/24 18:24 Last Admin: 12/29/23 20:09 Dose: 500 mg Thiamine HCl (Thiamine Hcl 100 Mg Tab) 100 mg PO QAM [facility] Stop: 01/23/24 11:44 Last Admin: 12/30/23 08:43 Dose: 100 mg (2) Bipolar disorder, unspecified Active/Remission status: currently active Current bipolar episode type: manic Current episode severity: unspecified Qualified Code(s): F31.10 - Bipolar disorder, current episode manic without psychotic features, unspecified
[2023-12-30 17:30] LABS: Appearance Urine Clear (Clear); Bacteria Urine Automated None Seen (None Seen); Bilirubin Urine Negative (Negative); Blood Urine Negative (Negative); Cast Urine Automated 0-2 /lpf (0-2); Color Urine Yellow; Epithelial Cell Urine Auto 0-2 /hpf (0-2); Glucose Urine UA Negative (Negative); Ketones Urine Negative (Negative); Leukocyte Esterase Urine Trace (Negative); Nitrite Urine Negative (Negative); Protein Urine Trace (Negative); RBC Urine Automated 0-2 /hpf (0-2); Specific Gravity Urine 1.024 (1.000-1.030); Urobilinogen Urine Negative (Negative)
[2023-12-30 17:43] LABS: Influenza A virus by PCR Negative (Neg); Influenza B virus by PCR Negative (Neg); RSV by PCR Negative (Neg); SARS CoV2 RNA(COVID-19) Ceph NEGATIVE (Negative)
--- NOTE | 2023-12-30 19:55 | Hospitalist Progress Note ---
Date of Service December 30, 2023 Assessment & Plan (1) MAGALY (acute kidney injury): Plan: resolved peak Cr 1.7 at time of admission likely 2nd to rhabdomyolysis (CPK 9500 at admission) most recent CPK 361 (2) Acute UTI: Plan: 2nd to E. coli treated, resolved will recheck a u/a and urine cx for test of cure in light of her not feeling well today (3) Benzodiazepine withdrawal with delirium: Plan: history of benzodiazepine dependence may have had mild benzo withdrawal in the first day or two of this admission clonazepam 0.5mg TID resumed no evidence of withdrawal at this time remains on gabapentin at dosing of 100mg am, 100mg afternoon, and 300mg HS will not continue at d/c (4) Bipolar I disorder with howie: Plan: cont lamictal 25mg daily patient not manic at this time voluntary psychiatric admission was offered by psychiatry - again declined by patient (5) Elevated LFTs: Plan: likely was 2nd to rhabdomyolysis LFTs all wnl today (6) Hypokalemia: Plan: replaced resolved (7) Generalized anxiety disorder: Plan: cont klonipin & lamictal B12 level wnl TSH wnl B1 level pending for insomnia -- atarax HS (8) Acute metabolic encephalopathy: Plan: 2nd to UTI, MAGALY, etc. resolved can't rule out toxic encephalopathy from benzo withdrawal either way mental status back to baseline (9) Rhabdomyolysis: Plan: peak CPK 9500 now 361 resolved (10) Arthralgia: Plan: check COVID/flu/RSV check u/a and urine cx (11) Prediabetes: Plan: a1c 6.1% discussed in detail with patient will ask dietary to provide counseling would benefit from home surveillance by checking BSGs 1x/day will prescribe glucometer at d/c f/u PCP for this Plan DVT prophylaxis - enoxaparin once daily care d/w psychiatry today can d/c home tomorrow Admission and Anticipated Discharge Date Admission Date: December 23, 2023 Subjective patient reports feeling achy in her joints today feels tired/fatigued; did not sleep well overnight feels like she is coming down "with the flu" denies dysuria eating very well was tearful this am & anxious per staff she does have her phone up & running has contacted several friends/family to arrange her aftercare she is trying to get in touch with her psychiatrist as well but has not heard back from his office yet (the office is in [place]) Review of Systems Review of Systems: gen - no fevers or chills cv - no chest pain pulm - no cough, congestion, or dyspnea GI - no N/V Physical Exam Physical Exam: gen - anxious, but otherwise NAD, nontoxic appearing mouth - MMM neck - no JVD heart - RRR, s1 s2, no murmur lungs - CTA b/l abd - soft NT ND BS+ ext - no edema, pulses 2+ b/l psych - a/o x 3 musculo - no joint synovitis of any small or large joint upper or lower extremities Results & Data Results & Data Vital Signs (Past 12 Hours) Vital Signs Temp Pulse Resp BP Pulse Ox O2 Del Method 12/30/23 15:42 36.8 C 90 17 105/74 95 Room Air Laboratory Results Laboratory Results - last 24 hr 12/30/23 12/30/23 07:34 16:35 Estimat Average Glucose 128 Hemoglobin A1c 6.1 H Total Bilirubin 0.4 Direct Bilirubin 0.0 AST 32 ALT 41 Alkaline Phosphatase 45 Total Protein 7.7 Albumin 4.7 Vitamin B1 Pending Vitamin B12 744 25-OH Vitamin D Total 29.9 L Urine Color Yellow Urine Appearance Clear Urine pH 6.0 Ur Specific [place] 1.024 Urine Protein Trace H Urine Glucose (UA) Negative Urine Ketones Negative Urine Blood Negative Urine Nitrite Negative Urine Bilirubin Negative Urine Urobilinogen Negative Ur Leukocyte Esterase Trace H Urine WBC (Auto) 6-10 H Urine RBC (Auto) 0-2 U Hyaline Cast (Auto) 0-2 U Epithel Cells (Auto) 0-2 Urine Bacteria (Auto) None Seen SARS-CoV-2 (PCR) NEGATIVE Influenza Type A (PCR) Negative Influenza Type B (PCR) Negative RSV (RT-PCR) Negative PG Care Time/CCT Total # of Minutes Spent Total Time Spent with Patient: Total time spent is greater than 50% in coordination of care (as documented) at patient's floor/unit and/or counseling patient: Coding Level of Care Code 03419 SUB INP/OBS CARE 3/50MIN Diagnoses MAGALY (acute kidney injury) N17.9 Acute UTI N39.0 Benzodiazepine withdrawal with delirium F13.931 Bipolar I disorder with howie F31.10 Elevated LFTs R79.89 Hypokalemia E87.6 Generalized anxiety disorder F41.1 Acute metabolic encephalopathy G93.41 Rhabdomyolysis M62.82 Arthralgia M25.50 Prediabetes R73.03
[2023-12-30] MEDS: hydrOXYzine HCl 25 MG TAB PO SCH (21:17)
[2023-12-30 21:49] VITALS: RESP 16
[2023-12-31 07:36] LABS: Basophils # (auto) 0.05 K/uL (0.00-0.20); Eosinophils # (auto) 0.36 K/uL (0.00-0.50); Eosinophils % (auto) 7.2 %; Hematocrit (blood only) 36.5 % (37.0-47.0); Hemoglobin 12.1 g/dl (12.0-16.0); Immature Granulocytes # (auto) 0.02 K/uL (0.01-0.20); Immature Granulocytes % (auto) 0.4 %; Lymphocytes # (auto) 1.88 K/uL (1.20-3.40); Lymphocytes % (auto) 37.6 %; Mean Corpuscular Hgb Conc 33.2 g/dL (32.0-36.0); Mean Corpuscular Volume 90.3 fL (80.0-100.0); Monocytes # (auto) 0.72 K/uL (0.11-0.59); Monocytes % (auto) 14.4 %; Neutrophils # (auto) 1.97 K/uL (1.40-6.50); Neutrophils % (auto) 39.4 %; Platelet Count 352 K/uL (130-400); RDW Coefficient of Variation 13.8 % (11.5-14.5); RDW Standard Deviation 46.1 fL (36.4-46.3); Red Blood Count 4.04 M/uL (4.20-5.40)
[2023-12-31 07:46] VITALS: BP 115/79; PULSE 86; TEMP 97.5; O2SAT 97
[2023-12-31 08:15] LABS: Calcium 9.1 mg/dl (8.6-10.3); Creatinine Clr Calc Pharmacy 48.5 ml/min; Est GFR (Non-African American) 57.8 ml/min; Potassium 4.2 mmol/L (3.5-5.1)
--- NOTE | 2023-12-31 13:56 | Discharge Summary ---
Discharge Summary Date of Service December 31, 2023 Principal Dx & Hospital Course #1 = Principal Diagnosis (1) MAGALY (acute kidney injury): resolved peak Cr 1.7 at time of admission likely 2nd to rhabdomyolysis (CPK 9500 at admission) most recent CPK 361 (2) Acute UTI: 2nd to E. coli treated, resolved will recheck a u/a and urine cx for test of cure in light of her not feeling well today (3) Benzodiazepine withdrawal with delirium: history of benzodiazepine dependence may have had mild benzo withdrawal in the first day or two of this admission clonazepam 0.5mg TID resumed no evidence of withdrawal at this time remains on gabapentin at dosing of 100mg am, 100mg afternoon, and 300mg HS will not continue at d/c (4) Bipolar I disorder with howie: cont lamictal 25mg daily patient not manic at this time voluntary psychiatric admission was offered by psychiatry - again declined by patient (5) Elevated LFTs: likely was 2nd to rhabdomyolysis LFTs all wnl today (6) Hypokalemia: replaced resolved (7) Generalized anxiety disorder: cont klonipin & lamictal B12 level wnl TSH wnl B1 level pending for insomnia -- atarax HS (8) Acute metabolic encephalopathy: 2nd to UTI, MAGALY, etc. resolved can't rule out toxic encephalopathy from benzo withdrawal either way mental status back to baseline (9) Rhabdomyolysis: peak CPK 9500 now 361 resolved (10) Arthralgia: check COVID/flu/RSV check u/a and urine cx (11) Prediabetes: a1c 6.1% discussed in detail with patient will ask dietary to provide counseling would benefit from home surveillance by checking BSGs 1x/day will prescribe glucometer at d/c f/u PCP for this Plan DVT prophylaxis - enoxaparin once daily care d/w psychiatry today can d/c home tomorrow Admission HPI Per Admitting Provider Piero is a 68-year-old female with a past medical history significant for bipolar disorder, generalized anxiety disorder who presented to the [facility] ED via EMS on 12/23/2023 with multiple complaints including poor sleep, dehydration, and confusion. On arrival to the ED the patient was noted to be speaking with tangential and pressured speech and not making much sense. She was initially noted be hypertensive on arrival at 175/116 but otherwise stable. Labs were significant for a leukocytosis of 11 with neutrophil predominance of 7, creatinine of 1.72 (baseline is near 1.0), anion gap of 15 with bicarb of 20, potassium 3.4, ALT of 65, a AST of 176, UA with cloudy appearance, 1+ protein, 1+ ketones, 1+ blood, nitrite positive, 3+ leukocyte esterase, 2150 WBC, 2+ bacteria, and no epithelial cells, with Urine drug screen positive for THC and medical alcohol level currently in process. CT head without contrast, CTA of the head and neck were read as unremarkable. Prior to admission the patient was given 1 L normal saline and a dose of ceftriaxone. At the time of exam the patient was sitting up in bed appears extremely alert. She is speaking with pressured speech often tangential causing her to lose her concentration. Due to her acute howie history is difficult to obtain but it appears that she started to develop UTI symptoms on 12/18/2023. Unsure when her last dose of Lamictal was but she confirmed that she has definitely missed doses since 12/17. Patient is unsure if she has slept since the start of her UTI symptoms and confirms that she has had very little to eat or drink. States that she called her neighbor this morning around 5 AM and they came over to see her and were concerned she was not acting herself. The patient confirms that she knows she is not her bed Mental state feels she is manic. States that she had a scheduled appointment today at 2:30 PM with her psychiatrist, states that when she started talking to him on the phone he became concerned and recommended she be evaluated by EMS. States that she lives by herself and does not have any pets. When asked, she denies current suicidal homicidal ideations, hallucinations. She is in agreement with being admitted for treatment of her UTI with dehydration but also to help stabilize her current mental state. States that she currently cannot remember the pass code to her phone which is causing her some distress. When asked, she denies any recent alcohol or tobacco use. When initially asked about any marijuana use. However she then states that she used some marijuana a month or so ago when she was visiting with friends in [place]. Patient then went on a tangent explaining that [facility] but will be moving to [place] [facility] in the near future. Please refer to Dr. Melchor's attestation for any changes to treatment plan Discharge Exam gen - anxious, but otherwise NAD, nontoxic appearing mouth - MMM neck - no JVD heart - RRR, s1 s2, no murmur lungs - CTA b/l abd - soft NT ND BS+ ext - no edema, pulses 2+ b/l psych - a/o x 3 musculo - no joint synovitis of any small or large joint upper or lower extremities Discharge Plan Discharge Items Patient Disposition: Home - Self-Care Reason For Visit: Urinary tract infection, acute kidney injury Discharge Diagnosis: 1. urinary tract infection - resolved 2. abnormal liver function tests - resolved 3. acute kidney injury - resolved 4. low potassium - resolved 5. new diagnosis of pre-diabetes - hemoglobin a1c 6.1% (see handouts) 6. bipolar disorder 7. anxiety 8. confusion - due to #1 - resolved Activity: Resume your previous activity Non-emergency contact: Primary Care Provider Call non-emergency contact if: you have any medication questions Follow-up/Referrals: Vasu Polk III, CRNP [Nurse Practitioner] - 02/03/24 2:40 am Destiny Richardson CRNP [Nurse Practitioner] - (or Dr Tristian Tong or Mr Vasu Polk - to establish care ) Diet: Carb Consistent or DM2 Addtl Attending Provider Instructions: Ms Boudreaux, You were hospitalized due to urinary tract infection, acute kidney injury (a rise in your kidney number/creatinine in the blood), and rhabdomyolysis. The latter is when the muscles of the body become temporarily damaged as evidenced by an elevated "CPK" level in the blood. The CPK is a muscle test that we can measure easily with blood work. Falls, seizures, excessive exercise, car accidents, certain medicines, etc can all cause the CPK to rise and lead to the development of rhabdomyolysis. It is unclear what caused your mild rhabdomyolysis. Your acute kidney injury & rhabdomyolysis resolved with IV fluids & time. Your urinary tract infection resolved with IV antibiotics. Your confusion improved with supportive care, treating your infection, & time. You were seen by [facility] for your confusion, anxiety, bipolar disorder, etc. They recommended voluntary admission to inpatient psychiatry to improve your mental wellness. You voiced several times that you wanted to obtain this help on an outpatient basis. During your stay we incidentally noted that your blood sugars were a bit high at times. This led to us checking a test called a "hemoglobin a1c" (see handout). Your a1c was 6.1% which is consistent with pre-diabetes. This is something that your family doctor can monitor over time. You don't have to take any medicine for this right now. I have prescribed a glucometer and the necessary supplies for you to check your sugars once a day at home. I would vary the time you check your sugar - some days check it first thing in the morning, other days at bedtime, and still other days before your lunch or dinner meal. The glucometer will store the values in the machine but it is often helpful to keep a log of your sugars on a piece of paper. Ideally your fasting blood sugar first thing in the morning is <100. I have refilled a 2-week supply of your clonazepam. I have also given you a script for hydroxyzine to take at bedtime if you are having trouble sleeping. Common side effects - dry mouth, dry eyes, drowsiness. Your vitamin D level was a hair below normal. I would purchase [id number] vitamin D and take 2000 IUs daily moving forward. This will help your bone health and your overall well-being. Follow-up - * we will assist you in getting a new family doctor/family provider * our psychiatry team is trying to help you find a new therapist (see the information they provided you) * please follow-up with Dr Meza in the next 1-2 weeks if possible Return to [facility] if - * you have thoughts of hurting yourself or someone else * you develop severe diarrhea * you have concerns that you have developed howie * you have fever over 100 degrees * you have shortness of breath or chest pains * any other concerns It was our pleasure to care for you! Pending Studies at Discharge: No Stand-Alone Forms: [facility], Smoking Cessation Medications and DC Order Prescriptions: New hydroxyzine HCl 25 mg Tablet 25 mg PO HS PRN (Reason: sleep) Qty: 10 0RF (DME) lancets 33 gauge misc See Rx Instructions .Route Qty: 100 0RF Rx Instructions: check blood sugar 1x/day. (DME) lancing device with lancets Kit See Rx Instructions .Route Qty: 1 0RF Rx Instructions: As directed - check blood sugars 1x/day. (DME) blood-glucose meter Kit See Rx Instructions .Route Qty: 1 0RF Rx Instructions: As directed (DME) OneTouch Ultra Test Strip See Rx Instructions .Route Qty: 100 0RF Rx Instructions: As directed - check blood sugars 1x/day cholecalciferol (vitamin D3) [Vitamin D3] 50 mcg (2,000 unit) tablet 50 mcg PO DAILY Qty: 30 1RF Rx Instructions: purchase [id number] Continued ascorbic acid (vitamin C) 500 mg tablet 500 mg PO QAM Patient Comments: DAILY 1 g Calcium Citrate Plus [id number] [id number] Tablet 1 tab PO DAILY lamotrigine 25 mg tablet 25 mg PO DAILY clonazepam 0.5 mg tablet 0.5 mg PO TID 14 Days Qty: 42 0RF Discharge Orders: Discharge Order (Routine); Ordered 12/31/23 Ordered By: Marc Munson/Other Patient Handouts: A1C, Prediabetes, 5 Steps for Eating Healthier, Blood Sugar Check Steps Admission Data Admit Date/Time: 12/23/23 19:56 Attending Provider: Marc Castaneda Admit Provider: Pau Melchor Primary Care Provider: PCP,NO Other Providers: Ondina Arteaga; Oswaldo Guy; Charanjit Moscoso Jr; Kailey Nielsen; Kassandra Javed; Mata Liang Hospital Stay Data Consultations 12/23/23 20:24 Consult Psychiatry Routine Diagnostic Imagining Performed 12/23/23 17:02 CT head/brain wo con Stat 12/23/23 17:22 CT angio head w con Stat CT angio neck with con Stat Pending Results Patient Have Any Pending Studies at Discharge: No Discharge Instructions Given to Patient (Per Discharging Provider) Ms Boudreaux, You were hospitalized due to urinary tract infection, acute kidney injury (a rise in your kidney number/creatinine in the blood), and rhabdomyolysis. The latter is when the muscles of the body become temporarily damaged as evidenced by an elevated "CPK" level in the blood. The CPK is a muscle test that we can measure easily with blood work. Falls, seizures, excessive exercise, car accidents, certain medicines, etc can all cause the CPK to rise and lead to the development of rhabdomyolysis. It is unclear what caused your mild rhabdomyolysis. Your acute kidney injury & rhabdomyolysis resolved with IV fluids & time. Your urinary tract infection resolved with IV antibiotics. Your confusion improved with supportive care, treating your infection, & time. You were seen by [facility] for your confusion, anxiety, bipolar disorder, etc. They recommended voluntary admission to inpatient psychiatry to improve your entmi wellness. You voiced several times that you wanted to obtain this help on an outpatient basis. During your stay we incidentally noted that your blood sugars were a bit high at times. This led to us checking a test called a "hemoglobin a1c" (see handout). Your a1c was 6.1% which is consistent with pre-diabetes. This is something that your family doctor can monitor over time. You don't have to take any medicine for this right now. I have prescribed a glucometer and the necessary supplies for you to check your sugars once a day at home. I would vary the time you check your sugar - some days check it first thing in the morning, other days at bedtime, and still other days before your lunch or dinner meal. The glucometer will store the values in the machine but it is often helpful to keep a log of your sugars on a piece of paper. Ideally your fasting blood sugar first thing in the morning is <100. I have refilled a 2-week supply of your clonazepam. I have also given you a script for hydroxyzine to take at bedtime if you are having trouble sleeping. Common side effects - dry mouth, dry eyes, drowsiness. Your vitamin D level was a hair below normal. I would purchase [id number] vitamin D and take 2000 IUs daily moving forward. This will help your bone health and your overall well-being. Follow-up - * we will assist you in getting a new family doctor/family provider * our psychiatry team is trying to help you find a new therapist (see the information they provided you) * please follow-up with Dr Meza in the next 1-2 weeks if possible Return to [facility] if - * you have thoughts of hurting yourself or someone else * you develop severe diarrhea * you have concerns that you have developed howie * you have fever over 100 degrees * you have shortness of breath or chest pains * any other concerns It was our pleasure to care for you! Coding Diagnoses MAGALY (acute kidney injury) N17.9 Acute UTI N39.0 Benzodiazepine withdrawal with delirium F13.931 Bipolar I disorder with howie F31.10 Elevated LFTs R79.89 Hypokalemia E87.6 Generalized anxiety disorder F41.1 Acute metabolic encephalopathy G93.41 Rhabdomyolysis M62.82 Arthralgia M25.50 Prediabetes R73.03
== END 2023-12-31 15:02 | disposition home or self-care (01) | DRG 682 ==
LOC: ED 16:29 → SUATTDRO 19:56 → 2W 19:56 → 3W 12-27 03:23